=== PATIENT | male | born 1960 | race Caucasian/White ===

== ENCOUNTER 2016-08-12 17:29 | Observation (INO) ==
[2016-08-12] MEDS ORDERED: PANTOPRAZOLE 40 MG VIAL IV STA (18:47)
[2016-08-12] MEDS ORDERED: SODIUM CHLORIDE 0.9% 500 ML IV STA (18:47)
[2016-08-12] MEDS ORDERED: PANTOPRAZOLE 40 MG VIAL IV ONE (18:59)
[2016-08-12 19:07] LABS: Basophils % 0.5 % (0.0-0.8); Eosinophils # 0.2 10*3/uL (0.0-0.87); Eosinophils % 2.8 % (0.00-10.9); Hematocrit 27.8 VOL% (42.0-52.0); Immature Granulocytes % 0.5 %; Immature Granulocytes Absolute 0.03 #; Lymphocytes # 0.9 10*3/uL (1.4-4.0); Lymphocytes % 14.1 % (21.2-54.2); Mean Corpuscular HGB Conc 28.8 GM/DL (32-36); Mean Corpuscular Hemoglobin 24 PG (27-34); Mean Corpuscular Volume 84.5 FL (87-102); Mean Platelet Volume 9.5 FL (9.6-12.0); Monocytes # 0.6 10*3/uL (0.11-0.8); Monocytes % 10.5 % (1.7-12.7); Neutrophils # 4.4 10*3/uL (1.4-7.4); Neutrophils % 71.6 % (38.7-73.9); Platelet Count 271 T/CUMM (130-400); Red Blood Count 3.29 MC/CUMM (3.8-5.5); Red Cell Distribution Width 18.2 % (9.3-17.3); White Blood Count 6.1 T/CUMM (4-12)
[2016-08-12 19:11] LABS: PT Patient Result 10.6 SECS
[2016-08-12 19:22] LABS: Alanine Aminotransferase 38 U/L (16-61); Albumin 2.7 G/DL (3.4-5.0); Alkaline Phosphatase 161 U/L (45-117); Aspartate Amino Transferase 79 U/L (0-37); Blood Urea Nitrogen 5 MG/DL (7-18); Calcium 8.2 MG/DL (8.5-10.1); Glucose 186 MG/DL (74-106); Magnesium 2.2 MG/DL (1.8-2.4); Potassium 4.1 MMOL/L (3.5-5.1); Sodium 136 MMOL/L (136-145); Total Protein 6.6 G/DL (6.4-8.3); Troponin I Only < 0.015 NG/ML (0.00-0.045)
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
[2016-08-12] MEDS ORDERED: ACETAMINOPHEN 325 MG TABLET PO PRN (19:34)
[2016-08-12] MEDS ORDERED: SODIUM CHLORIDE 0.9% 250 ML IV PRN (19:34)
[2016-08-12] MEDS ORDERED: ONDANSETRON 4 MG/2 ML VIAL IV PRN (19:34)
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
[2016-08-12 22:02] LABS: Anisocytosis Slight; Microcytosis Slight; Platelet Estimate Normal
[2016-08-13 06:09] VITALS: BP 117/73
[2016-08-13 06:12] LABS: Hematocrit 29.6 VOL% (42.0-52.0); Hemoglobin 8.8 GM/DL (14.0-18.0)
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
--- NOTE | 2016-08-13 07:16 | EKG Report ---
Stationary ECG Study [facility] ER Test Date: 08/12/2016 7:00:20 PM Pat Name: MALICK SERRANO Department: Room: 424 Gender: M Manager Control: : 1960 Requested by: Bertrand Arrieta Order Number: [id number] Reading MD: RAJINDER HARRELL Intervals [place] Rate: 117 P: 62 FL: 140 QRS: 47 QRSD: 89 T: 30 QT: 320 QTc: 389 Interpretive Statements SINUS TACHYCARDIA Electronically Signed On 08-14-16 16:38:17 CDT by RAJINDER HARRELL [email or web address]
[2016-08-13] MEDS ORDERED: ASCORBIC ACID 500 MG TABLET PO SCH (09:00)
[2016-08-13] MEDS ORDERED: GABAPENTIN 600 MG TABLET PO SCH (09:00)
[2016-08-13] MEDS ORDERED: PANTOPRAZOLE 40 MG TABLET PO SCH (09:00)
[2016-08-13] MEDS ORDERED: FERROUS SULFATE 325 MG TABLET PO SCH (09:00)
[2016-08-13] MEDS ORDERED: PREGABALIN 100 MG CAPSULE PO SCH (09:00)
[2016-08-13] MEDS ORDERED: MELOXICAM 7.5 MG TABLET PO SCH (09:00)
[2016-08-13] MEDS ORDERED: SERTRALINE 100 MG TABLET PO SCH (09:00)
[2016-08-13] MEDS ORDERED: SIMVASTATIN 40 MG TABLET PO SCH (09:00)
[2016-08-13] MEDS ORDERED: traZODone 50 MG TABLET PO SCH (21:00)
== END 2016-08-13 06:37 | disposition home or self-care (01) ==
LOC: N.ED 17:29 → N.EDINP 17:29 → N.4E 20:25 → N.EDINP 20:30
PROVIDERS: ADMIT Internal Medicine; ATTEND Internal Medicine

== ENCOUNTER 2016-10-01 11:48 | Observation (INO) ==
--- NOTE | 2016-10-01 13:12 | Emergency Department Note ---
IJerman Brooke, am scribing for, and in the presence of, Elke Koch DO 13:08 . IAugust Debra, DO, personally performed the services described in this documentation, ascribed by Ashley Stoll in my presence, and it is both accurate and complete 312 . Arrival - Arrival Chief Complaint: Non-Specific Stated Complaint: REQUIRE BLOOD ED Nursing Triage Note: C/O ' I am anemic and I need blood ", states he has to come often to get blood, SOB when walks, + weakness, + pale in color, states he is having to get blood transfusions apx. every 5 weeks Mode of Arrival: Ambulatory Limitations: No Limitations Source: Patient, RN Notes Reviewed Time Seen by Provider: 10/01/16 12:53 - History of Present Illness HPI Narrative: Patient is a 56 year old male who presents to the ED with c/o generalized weakness and shortness of breath. Patient states "I need a blood transfusion.' He says he is having slow blood loss but the [facility]." Patient says he is supposed to "swallow a camera pill " but has not been scheduled. Patient says he can usually tell when he needs blood. His last transfusion was in July. He has no other complaints. Patient has PMHx of anxiety, depression, peripheral neuropathy, RA, obstructive sleep apnea , pulmonary embolism, polyps, GERD, anemia, and MRSA. Allergies/Adverse Reactions: Allergies Allergy/AdvReac Type Severity Reaction Status Date / Time No Known Allergies Allergy Verified 10/01/16 12:00 Home Medications: Home Medications Medication Instructions Recorded Confirmed Type Ascorbic Acid Tab [Vitamin C Tab] 500 mg PO TID 01/01/15 08/12/16 History Ferrous Sulfate 324 mg PO TID 01/01/15 08/12/16 History Gabapentin 600 mg PO TID 01/01/15 08/12/16 History Meloxicam 7.5 mg PO DAILY 01/01/15 08/12/16 History Omeprazole 20 mg PO DAILY 01/01/15 08/12/16 History Pregabalin [Lyrica] 100 mg PO TID 01/01/15 08/12/16 History Sertraline [Zoloft] 100 mg PO DAILY 01/01/15 08/12/16 History Simvastatin 80 mg PO DAILY 01/01/15 08/12/16 History traZODone [Desyrel] 100 mg PO DAILY 01/01/15 08/12/16 History Review of System - Review of System 12 point system: reviewed and no additional remarkable complaints except as stated - Review of System Constitutional: Absent: fever Respiratory: Present: other (shortness of breath). Absent: respiratory distress Skin: Absent: rash Neurological: Present: weakness (generalized) Medical,Surgical,& Family Hx - Medical History Psychological: History of: Anxiety Disorders, Depression Neurology: History of: Peripheral Neuropathy No history of: Seizures HEENT: History of: Eye Problem (GLASSES) Rheumatology: History of;: Rheumatoid Arthritis Respiratory: History of: Obstructive Sleep Apnea (CPAP), Pulmonary Embolism ( 2004) Gastrointestinal: History of: GERD, Polyps (REMOVED) Comment Only: GI Problems (CONSTIPATION) Hematology: History of: Anemia Other: History of: MRSA (2004) - Surgical History Abdominal Surgeries: Surgical HX of: Abdominal Surgery (GASTERECTOMY 2004), Colonoscopy - Family History Family History: Reports;: Family Cancer (MOTHER FATHER PATERNAL GRANDMOTHER) - Social History Smoking Status: Never smoker Frequency of Alcohol Use: Frequently Type of Drug Use: None Exam Vital Signs: Vital Signs Temperature 99.1 F 10/01/16 12:44 Pulse Rate 121 H 10/01/16 14:00 Respiratory Rate 20 10/01/16 14:00 Blood Pressure 122/65 10/01/16 14:00 O2 Sat by Pulse Oximetry 95 10/01/16 14:00 - General General appearance: alert, in no apparent distress, obese - Head Head exam: Present: atraumatic, normocephalic - Eye Eye exam: Present: normal appearance, PERRL, EOMI - ENT ENT exam: Present: other (pale mucous membranes) - Neck Neck exam: Present: normal inspection - Chest Chest inspection: Present: normal inspection, symmetric chest wall rise - Respiratory Respiratory exam: Present: normal lung sounds bilaterally - Cardiovascular Cardiovascular exam: Present: normal rhythm, tachycardia, normal heart sounds - Abdominal Exam Abdominal exam: Present: soft, normal bowel sounds. Absent: distention, tenderness - Extremities Exam Extremities exam: Present: normal inspection - Back Exam Back exam: Present: normal inspection - Neurological Exam Neurological exam: Present: alert, oriented X3 - Psychiatric Psychiatric exam: Present: normal affect, normal mood - Skin Skin exam: Present: warm, dry, intact, normal color Results - Labs CBC & BMP: 10/01/16 13:02 10/01/16 13:02 Lab Results: I have reviewed the patients labs Labs: Laboratory Tests 10/01/16 10/01/16 13:02 13:02 WBC 6.2 RBC 3.21 L Hgb 8.4 L Hct 27.7 L MCV 86.3 L MCH 26 L MCHC 30.3 L RDW 17.5 H Plt Count 187 MPV 9.8 Neut % (Auto) 79.1 H Lymph % (Auto) 6.8 L [place] % (Auto) 12.0 Eos % (Auto) 1.3 Baso % (Auto) 0.5 Neut # (Auto) 4.9 Lymph # (Auto) 0.4 L [place] # (Auto) 0.7 Eos # (Auto) 0.1 Baso # (Auto) 0.0 Total Counted 100 Immature Gran % 0.3 Nucleated RBC % 0.0 Immature Gran # 0.02 Segmented Neutrophils 72 Band Neutrophils 5 Lymphocytes 10 L Monocytes 12 Eosinophils 1 Nucleated RBCs # 0.00 Platelet Estimate Adequate Hypochromasia 1+ Ovalocytes Slight Morphology Comment Sodium 135 L Potassium 4.4 Chloride 101 Carbon Dioxide 25 Anion Gap 13.4 BUN 7 Creatinine 0.70 GFR Calculation 133 BUN/Creatinine Ratio 10.00 Glucose 309 H Calculated Osmolality 279.1 Calcium 7.8 L Total Bilirubin 0.40 AST 78 H ALT 42 Alkaline Phosphatase 157 H Total Protein 6.2 L Albumin 2.4 L Globulin 3.8 H Albumin/Globulin Ratio 0.6 L Disposition Clinical Impression: Anemia Case discussed with: patient Disposition: Still a Patient Condition: Stable Time of Disposition: 15:17
[2016-10-01 13:16] LABS: Basophils % 0.5 % (0.0-0.8); Eosinophils # 0.1 10*3/uL (0.0-0.87); Eosinophils % 1.3 % (0.00-10.9); Hematocrit 27.7 VOL% (42.0-52.0); Hemoglobin 8.4 GM/DL (14.0-18.0); Immature Granulocytes % 0.3 %; Immature Granulocytes Absolute 0.02 #; Lymphocytes # 0.4 10*3/uL (1.4-4.0); Lymphocytes % 6.8 % (21.2-54.2); Mean Corpuscular HGB Conc 30.3 GM/DL (32-36); Mean Corpuscular Hemoglobin 26 PG (27-34); Mean Corpuscular Volume 86.3 FL (87-102); Mean Platelet Volume 9.8 FL (9.6-12.0); Monocytes # 0.7 10*3/uL (0.11-0.8); Neutrophils # 4.9 10*3/uL (1.4-7.4); Neutrophils % 79.1 % (38.7-73.9); Platelet Count 187 T/CUMM (130-400); Red Blood Count 3.21 MC/CUMM (3.8-5.5); Red Cell Distribution Width 17.5 % (9.3-17.3); White Blood Count 6.2 T/CUMM (4-12)
[2016-10-01 13:29] LABS: Albumin 2.4 G/DL (3.4-5.0); Bilirubin,Total 0.4 MG/DL (0.2-1.0); Calcium 7.8 MG/DL (8.5-10.1); Osmolality,Calculated 279.1 MOS/KG (273-304); Potassium 4.4 MMOL/L (3.5-5.1); Total Protein 6.2 G/DL (6.4-8.3)
[2016-10-01 13:39] LABS: Band Neutrophils 5 % (0-10); Eosinophils 1 % (0-10); Hypochromasia 1+; Lymphocytes 10 % (20-55); Segmented Neutrophils 72 % (50-85); Total Cells Counted 100
[2016-10-01 13:40] LABS: Ovalocytes Slight; Platelet Estimate Adequate
--- NOTE | 2016-10-01 15:59 | Hospitalist History & Physical ---
Assessment and Plan (1) Anemia Status: Acute Assessment and plan: Hemoglobin and hematocrit noted 8.4 and 27.7. Hemoglobin and hematocrit is stable however patient is is symptomatic. We will type and screen in place blood products in the bearden. Patient may require eventual blood transfusion. Will check serial H&H's The patient reports that his anemia is chronic in nature. He reports that he generally receives transfusions every 5 weeks. He is followed closely by [facility]enterology at the [facility] in [place]. He reports that he is scheduled for a pill endoscopy in the near future. We will provide supportive care. Current Visit: Yes Qualifiers: Anemia type: unspecified type Qualified Code(s): D64.9 - Anemia, unspecified (2) GI bleed Status: Acute Assessment and plan: We will keep patient n.p.o., start PPIs, type and screen, place blood products on hold, and consult gastroenterology to evaluate and assist. The patient reports that he has chronic anemia secondary to a unidentified bleed in the GI tract. He was scheduled to undergo pill endoscopy for diagnostic purposes. He reported that he normally gets transfused every 5 weeks. Current Visit: No History of Present Illness Chief complaint: "need blood" History of present illness: This is a very pleasant 56-year-old male that presented to the ED at [facility] this afternoon for further evaluation of generalized weakness of shortness of breath. Patient has a rather long and complex medical history significant for depression, anxiety, peripheral neuropathy, rheumatoid arthritis, obstructive sleep apnea, pulmonary embolism, gastroesophageal reflux disease, anemia, and methicillin-resistant Staphylococcus aureus. She has surgical history significant for gastrectomy. The patient reports that the above symptoms are chronic in nature and are associated with his long-standing history of anemia. The patient reports that he is seen quite often and requires frequent blood transfusions. He reported that he was injured during exercises in [place] in 2004. He sustained an shrapnel injury to his abdomen which required multiple surgical procedures and eventual mesh placement. He reports that he is normally seen at the [facility] in [facility]. He reports that he is scheduled to undergo capsule endoscopy soon at the [facility] in [place] to possibly identify a source of his anemia. He reports that he generally gets short of breath and very tired when his blood levels are low. He noticed the gradual onset of the symptoms and decided to present to the ED for further evaluation. In addition, he states that in recent months he has required blood transfusions about every 5 weeks. The patient was assessed at the time of ED presentation. The patient was noted to be tachycardic with a pulse rate noted at 121 and febrile with a temperature noted 99.1. Labs were obtained; complete blood count reported white blood cell count at 6.2, hemoglobin 8.4, hematocrit 27.7, and platelet count 187. Complete metabolic profile reported sodium at 135, potassium 4.4, chloride 101, CO2 25, BUN 7, creatinine 0.70, and glucose 309. Calcium was noted at 7.8, total bilirubin 0.40, AST 78, a LT 42, alkaline phosphatase 157, albumin 2.4. Digital examination was performed in the ED which was heme positive. After brief discussion with both Dr. Koch and Dr. Pierce, the patient will be admitted to the hospitalist services for continuation of care. A GI consultation has been requested to assist in the management of the patient during the clinical encounter. Home medications have been reviewed and reconciled. CODE STATUS discussed patient is a FULL CODE. Home Medications Medication Instructions Recorded Confirmed Type Ascorbic Acid Tab [Vitamin C Tab] 500 mg PO TID 01/01/15 08/12/16 History Ferrous Sulfate 324 mg PO TID 01/01/15 08/12/16 History Gabapentin 600 mg PO TID 01/01/15 08/12/16 History Meloxicam 7.5 mg PO DAILY 01/01/15 08/12/16 History Omeprazole 20 mg PO DAILY 01/01/15 08/12/16 History Pregabalin [Lyrica] 100 mg PO TID 01/01/15 08/12/16 History Sertraline [Zoloft] 100 mg PO DAILY 01/01/15 08/12/16 History Simvastatin 80 mg PO DAILY 01/01/15 08/12/16 History traZODone [Desyrel] 100 mg PO DAILY 01/01/15 08/12/16 History Allergies Allergy/AdvReac Type Severity Reaction Status Date / Time No Known Allergies Allergy Verified 10/01/16 12:00 Medical,Surgical,& Family Hx - Medical History Psychological: History of: Anxiety Disorders, Depression Neurology: History of: Peripheral Neuropathy No history of: Seizures HEENT: History of: Eye Problem (GLASSES) Rheumatology: History of;: Rheumatoid Arthritis Respiratory: History of: Obstructive Sleep Apnea (CPAP), Pulmonary Embolism ( 2004) Gastrointestinal: History of: GERD, Polyps (REMOVED) Comment Only: GI Problems (CONSTIPATION) Hematology: History of: Anemia Other: History of: MRSA (2004) - Surgical History Abdominal Surgeries: Surgical HX of: Abdominal Surgery (GASTERECTOMY 2004), Colonoscopy - Family History Family History: Reports;: Family Cancer (MOTHER FATHER PATERNAL GRANDMOTHER) - Social History Smoking Status: Never smoker Frequency of Alcohol Use: Frequently Type of Drug Use: None 12 point system: reviewed and no additional remarkable complaints except as stated Exam - Constitutional Vitals: Period Temp Pulse Resp BP Sys/Niño Pulse Ox Last 24 Hr 99.1 F-99.1 F 118-136 20-20 118-134/65-77 94-98 General appearance: normal weight, no acute distress - Head Head exam: Present: normal inspection, normocephalic - Eye Eye exam: Present: EOMI Pupils: Present: BEATRIS, normal accommodation - ENT ENT exam: Present: normal exam, normal external ear exam, normal oropharynx - Neck Neck exam: Present: normal inspection. Absent: lymphadenopathy, meningismus, tenderness, thyromegaly - Respiratory Respiratory exam: Present: clear to auscultation bilaterally. Absent: rales, rhonchi, stridor, wheezes - Cardiovascular Cardiovascular exam: Present: tachycardia. Absent: carotid bruit, diastolic murmur, gallop, JVD, rubs, systolic murmur - GI/Abdominal GI/Abdominal exam: Present: normal bowel sounds, soft - Extremities Exam Extremities exam: Present: normal inspection, normal capillary refill, full ROM. Absent: edema - Back Exam Back exam: Present: normal inspection - Neurological Exam Neurological exam: Present: alert, oriented X3, CN II-XII intact - Psychiatric Psychiatric exam: Present: normal affect, normal mood - Skin Skin exam: Present: normal color, warm, dry Results - Labs CBC & BMP: 10/01/16 13:02 10/01/16 13:02 Lab Results: I have reviewed the past 24 hour labs
[2016-10-01] MEDS: SODIUM CHLORIDE 0.9% 1,000 ML IV SCH (17:17)
[2016-10-01] MEDS ORDERED: SODIUM CHLORIDE 0.9% 250 ML IV PRN (18:08)
[2016-10-01] MEDS: PREGABALIN 100 MG CAPSULE PO SCH (20:42)
[2016-10-01] MEDS: GABAPENTIN 600 MG TABLET PO SCH (20:42)
[2016-10-02 05:50] LABS: Basophils % 0.8 % (0.0-0.8); Eosinophils # 0.2 10*3/uL (0.0-0.87); Eosinophils % 4.7 % (0.00-10.9); Hematocrit 29.4 VOL% (42.0-52.0); Hemoglobin 9.1 GM/DL (14.0-18.0); Immature Granulocytes % 0.4 %; Immature Granulocytes Absolute 0.02 #; Lymphocytes # 0.8 10*3/uL (1.4-4.0); Lymphocytes % 16.7 % (21.2-54.2); Mean Corpuscular Hemoglobin 27 PG (27-34); Mean Platelet Volume 9.7 FL (9.6-12.0); Monocytes # 0.8 10*3/uL (0.11-0.8); Monocytes % 15.5 % (1.7-12.7); Neutrophils % 61.9 % (38.7-73.9); Platelet Count 204 T/CUMM (130-400); Red Blood Count 3.38 MC/CUMM (3.8-5.5); Red Cell Distribution Width 17.3 % (9.3-17.3); White Blood Count 4.9 T/CUMM (4-12)
[2016-10-02] MEDS: SODIUM CHLORIDE 0.9% 1,000 ML IV SCH ×3 (05:53→17:01)
[2016-10-02 06:00] LABS: INR 1.1; PT Patient Result 11.2 SECS
[2016-10-02 06:29] LABS: Band Neutrophils 3 % (0-10); Eosinophils 8 % (0-10); Hypochromasia 1+; Lymphocytes 12 % (20-55); Segmented Neutrophils 67 % (50-85); Total Cells Counted 100
[2016-10-02 06:30] LABS: Microcytosis 1+; Ovalocytes Slight; Platelet Estimate Normal
[2016-10-02] MEDS ORDERED: SERTRALINE 100 MG TABLET PO SCH (09:00)
[2016-10-02] MEDS ORDERED: PANTOPRAZOLE 40 MG VIAL IV SCH (09:00)
[2016-10-02] MEDS: GABAPENTIN 600 MG TABLET PO SCH ×2 (09:27→15:06)
[2016-10-02] MEDS: PREGABALIN 100 MG CAPSULE PO SCH ×2 (09:27→15:06)
--- NOTE | 2016-10-02 14:04 | Gastrointestinal Consult Note ---
Assessment and Plan (1) Guaiac positive stools Status: Acute Assessment and plan: This patient is taking iron which is making his stools dark. Not sure what the etiology of the guaiac positive stools is however this can be associated with enterocutaneous fistulas or perhaps there may be Crohn's disease and small bowel although one would think that the capsule endoscopy may have seen this. The stool itself is quite dark and I presume this is likely due to the iron intake. Patient's had one concerted effort to look with upper and lower endoscopy as well as capsule endoscopy at the [facility]. My suggestion would be to fix the enterocutaneous fistulas and see if the anemia goes away at this point, however it certainly would not hurt to transfuse the patient up to a normal level and then performed capsule endoscopy to look if a AVM or Dieulafoy's lesion could be identified with the additional blood. The patient does not desire local GI workup/repeat of tests done here. I have given him my card and will certainly be able to provide him local GI workup/repeated tests if he desires in the future. Current Visit: Yes (2) Enterocutaneous fistula Status: Acute Assessment and plan: The patient is due to get an evaluation over [facility] in the near future if he meets criteria. There is a chance that this fistula being persistently open may be the source of the patient's bleeding and closure would help decrease further transfusion needs. Again would suggest the patient have his fistula closure and then follow-up CBC in 1 month to see whether or not he continues to require repeat testing for workup. Current Visit: Yes (3) Anemia Status: Acute Assessment and plan: As mentioned above, the patient's current hematocrit is 27.7%. I suspect he will be up to a 30% before leaving here early. Current Visit: Yes History of Present Illness Chief complaint: Recurrent anemia with hematocrit down to 27.7 % for transfusion History of present illness: Mr. Dumont is a 56 year old male who has a history of being involved in a shrapnel related incident involving an IUD that [place] and this produced shrapnel injuries to his small bowel as well as perirectal injuries that have required multiple surgeries and has still resulted two persistent enterocutaneous fistulas. These have been present many months but the patient was feeling quite fatigued and tired in November 2015 and was discovered to have severe anemia requiring 4 unit transfusion. At [facility] point [facility] [place] [facility] both EGD and colonoscopy around December 2015. He has had negative CT scan of the abdomen is well, these were completely negative by report from the patient it was felt that the patient may have small bowel bleeding and so a PillCam was performed which again did not show any gross evidence of blood loss. It was thought that the patient may have a Dieulafoy's lesion or AVM that was not appearing on the PillCam and might be amenable to reevaluation after full transfusion--presumably to occur in [place] just prior to the next pill cam evaluation the patient did not want to drive all the way to [place] order to be transfused and so has been admitted to the hospital to get transfused locally so that he would not have to schlep from [place] all the way to [place] to get his 2 units of blood. His hematocrit on presentation was 27.7 with a hemoglobin of 8.4 g/dL now post transfusion of 2 units up to 29.4 and 9.1 g/dL. he does not wish to get reevaluated locally. He does still take iron and is notable for a grossly guaiac positive stool. The patient is currently having his case reviewed by a friend at [facility] in the surgery department who will think about bringing him over to get evaluated for fistula closure. It is unclear whether this will fix the anemia however or if it is even related. Home Medications Medication Instructions Recorded Confirmed Type Ferrous Sulfate 324 mg PO TID 01/01/15 10/01/16 History Omeprazole 20 mg PO QPM 01/01/15 10/01/16 History Pregabalin [Lyrica] 100 mg PO TID PRN 01/01/15 10/01/16 History Sertraline [Zoloft] 100 mg PO QPM 01/01/15 10/01/16 History Simvastatin 40 mg PO QPM 01/01/15 10/01/16 History Acetaminophen Tab [Tylenol Tab] 975 mg PO BID PRN 10/01/16 10/01/16 History Cetirizine HCl [Cetirizine Tab] 10 mg PO DAILY PRN 10/01/16 10/01/16 History Docusate Sodium Cap [Colace Cap] 100 mg PO DAILY PRN 10/01/16 10/01/16 History Doxepin HCl 25 mg PO BEDTIME 10/01/16 10/01/16 History Lidocaine 5% Patch [Lidoderm 5% 1 patch TRANSDERM DAILY 10/01/16 10/01/16 History Patch] Metformin HCl 500 mg PO BID 10/01/16 10/01/16 History Methocarbamol Tab [Robaxin Tab] 500 mg PO BEDTIME PRN 10/01/16 10/01/16 History Allergies Allergy/AdvReac Type Severity Reaction Status Date / Time No Known Allergies Allergy Verified 10/01/16 12:00 Medical,Surgical,& Family Hx - Medical History Psychological: History of: Anxiety Disorders, Depression Neurology: History of: Peripheral Neuropathy No history of: Seizures HEENT: History of: Eye Problem (GLASSES) Endocrine: History of: Diabetes Mellitus (NIDDM) Rheumatology: History of;: Rheumatoid Arthritis Respiratory: History of: Obstructive Sleep Apnea (CPAP), Pulmonary Embolism ( 2004) Gastrointestinal: History of: GERD, Polyps (REMOVED) Comment Only: GI Problems (CONSTIPATION) Musculoskeletal: History of: Back/Neck Problems (fractured vertabrae in neck and injury at L5 in 2004), Musculoskeletal Problems (right leg larger than left and hurts.) Hematology: History of: Anemia, Bleeding Problems Other: History of: MRSA (2004) - Surgical History Abdominal Surgeries: Surgical HX of: Abdominal Surgery (GASTERECTOMY 2004), Colonoscopy (temporary ostomy following injury in 2004.) - Family History Family History: Reports;: Family Cancer (MOTHER FATHER PATERNAL GRANDMOTHER) - Social History Smoking Status: Never smoker Frequency of Alcohol Use: Frequently Type of Drug Use: None Review of systems: Constitutional: Denies fever, chills, nausea, and vomiting Eyes: Denies dry eyes, and scleral icterus HENT: Denies headaches Cardiovascular: Denies acute chest pain and claudication Respiratory: Denies shortness of breath, wheezing, and difficulty breathing, denies cough Gastrointestinal: As noted in the HPI Genitourinary: Denies dysuria and hematuria Neurologic: Denies vision loss, and loss of sensation Musculoskeletal: Positive for joint swelling, joint stiffness, and muscular weakness Psychiatric: Denies depression and roberto symptoms Heme-Lymph: Some difficulty with easy bruising, lymph node enlargement or tenderness, night sweats, excessive bleeding Allergies-immunologic: Denies pruritus and rhinorrhea Exam - Constitutional Vitals: Period Temp Pulse Resp BP Sys/Niño Pulse Ox Last 24 Hr 97.3 F-99.6 F 106-120 15-22 115-149/51-77 93-98 Exam: Constitutional: Well-developed, well-nourished, alert, and in no acute distress Head and face: Head: Normocephalic atraumatic Eyes: Conjunctiva without injection, no gross scleral icterus, pupils equal and round bilaterally Ears: Intact to conversation in both ears Nose: External appearance is normal, nares patent Mouth: Oral mucous membranes moist without erythema dentition noted to be without erosion Neck: Normal appearance, no masses or tenderness, trachea midline Thyroid: Gland midline and appropriate size for age Respiratory: Normal respiratory effort, clear to auscultation without wheezes, rhonchi or rales Cardiovascular: Regular rate and rhythm, normal S1, S2, the exam is without rubs, murmurs or gallops. Gastrointestinal: Nontender to palpation, normal active bowel sounds, tone normal without rigidity or guarding, no masses present, no hepatomegaly, no spleen tip felt. The patient is a large number of scars in his abdomen as well as a perirectal scar that appears quite deep. There is a sensation of mesh underneath the skin in the bilateral upper quadrants just above the umbilicus there are 2 fistulas one just left of midline in the upper abdomen and the second in the right upper quadrant which appears to be the larger of the 2 with some mucoid drainage. There is no blood. Lymphatic: Neck without adenopathy, axilla without lymphadenopathy present Musculoskeletal: Right and left lower extremities without evidence of edema Skin and subcutaneous tissue: No rashes or ulcerations noted, normal skin turgor, digits and nails without clubbing/cyanosis/deformities. Neurologic: The patient is grossly oriented to person place and time, cranial nerves show tongue movements are normal with normal tongue extrusion midline, light touch sensation is intact. Psychiatric: No hallucinations or delusions are present, does not appear depressed Results - Labs CBC & BMP: 10/02/16 05:29 10/01/16 13:02
[2016-10-02 15:27] LABS: Hematocrit 30.8 VOL% (42.0-52.0); Hemoglobin 9.4 GM/DL (14.0-18.0)
--- NOTE | 2016-10-02 15:43 | Discharge Summary ---
Hospital Course - Hospital Course Hospital Course: This is a very pleasant 56-year-old male that presented to the ED at [facility] on October 01 2016 for further evaluation of generalized weakness of shortness of breath. Patient has a rather long and complex medical history significant for depression, anxiety, peripheral neuropathy, rheumatoid arthritis, obstructive sleep apnea, pulmonary embolism, gastroesophageal reflux disease, anemia, and methicillin-resistant Staphylococcus aureus. He has surgical history significant for gastrectomy. The patient reported that the above symptoms are chronic in nature and are associated with his long-standing history of anemia. The patient reported that he is seen quite often and requires frequent blood transfusions. He reported that he was injured during exercises in [place] in 2004. He sustained an shrapnel injury to his abdomen which required multiple surgical procedures and eventual mesh placement. He reported that he is normally seen at the [facility] in [place], [place]. He reported that he is scheduled to undergo capsule endoscopy soon at the [facility] in [place] to possibly identify a source of his anemia. He reported that he generally gets short of breath and very tired when his blood levels are low. He noticed the gradual onset of the symptoms and decided to present to the ED for further evaluation. In addition, he stated that in recent months he has required blood transfusions about every 5 weeks.The patient was assessed at the time of ED presentation. The patient was noted to be tachycardic with a pulse rate noted at 121 and febrile with a temperature noted 99.1. Labs were obtained; complete blood count reported white blood cell count at 6.2, hemoglobin 8.4, hematocrit 27.7, and platelet count 187. Complete metabolic profile reported sodium at 135, potassium 4.4, chloride 101, CO2 25, BUN 7, creatinine 0.70, and glucose 309. Calcium was noted at 7.8, total bilirubin 0.40, AST 78, a LT 42, alkaline phosphatase 157, albumin 2.4. Digital examination was performed in the ED which was heme positive. The patient was subsequently admitted to the hospitalist services for continuation of care. The patient was rehydrated. The patient was evaluated by gastroenterology; however the patient refused a full gastroenterology workup. The patient was transfused blood products and his blood counts improved. Today, his hemoglobin and hematocrit are noted at 9.4/30.8. 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 Diagnosis - Discharge Diagnosis (1) Anemia Status: Acute (2) GI bleed Status: Acute Discharge Plan - Discharge Medications No Action Pregabalin [Lyrica] 100 mg PO TID PRN PRN Reason: Pain Omeprazole 20 mg PO QPM Ferrous Sulfate 324 mg PO TID Sertraline [Zoloft] 100 mg PO QPM Simvastatin 40 mg PO QPM Cetirizine HCl [Cetirizine Tab] 10 mg PO DAILY PRN PRN Reason: Allergy Symptoms Docusate Sodium Cap [Colace Cap] 100 mg PO DAILY PRN PRN Reason: STOOL SOFTENER Doxepin HCl 25 mg PO BEDTIME Metformin HCl 500 mg PO BID Methocarbamol Tab [Robaxin Tab] 500 mg PO BEDTIME PRN PRN Reason: MUSCLE SPASMS Lidocaine 5% Patch [Lidoderm 5% Patch] 1 patch TRANSDERM DAILY Acetaminophen Tab [Tylenol Tab] 975 mg PO BID PRN PRN Reason: Pain - Follow Up or Referral - Forms/Instructions Exam - Constitutional Vitals: Period Temp Pulse Resp BP Sys/Niño Pulse Ox Last 24 Hr 97.3 F-99.6 F 106-120 15-22 115-149/51-77 93-97 Discharge Results Procedures and tests throughout hospitalization: Pending Orders 10/03/16 04:00 Prothrombin Time INR IN AM 10/04/16 04:00 Prothrombin Time INR IN AM Labs on day of discharge: Labs from last 24 hours 10/02/16 10/02/16 10/02/16 14:42 05:29 05:29 WBC 4.9 RBC 3.38 L Hgb 9.4 L 9.1 L Hct 30.8 L 29.4 L MCV 87.0 MCH 27 MCHC 31.0 L RDW 17.3 Plt Count 204 MPV 9.7 Neut % (Auto) 61.9 Lymph % (Auto) 16.7 L [place] % (Auto) 15.5 H Eos % (Auto) 4.7 Baso % (Auto) 0.8 Neut # (Auto) 3.0 Lymph # (Auto) 0.8 L [place] # (Auto) 0.8 Eos # (Auto) 0.2 Baso # (Auto) 0.0 Total Counted 100 Immature Gran % 0.4 Nucleated RBC % 0.0 Immature Gran # 0.02 Segmented Neutrophils 67 Band Neutrophils 3 Lymphocytes 12 L Monocytes 10 Eosinophils 8 Nucleated RBCs # 0.00 Platelet Estimate Normal Hypochromasia 1+ Microcytosis 1+ Ovalocytes Slight INR PT Patient/Control Mix Circ Anticoag PTT 29.9 Blood Type Antibody Screen Antibody Identification Crossmatch 10/02/16 10/01/16 05:29 13:04 WBC RBC Hgb Hct MCV MCH MCHC RDW Plt Count MPV Neut % (Auto) Lymph % (Auto) [place] % (Auto) Eos % (Auto) Baso % (Auto) Neut # (Auto) Lymph # (Auto) [place] # (Auto) Eos # (Auto) Baso # (Auto) Total Counted Immature Gran % Nucleated RBC % Immature Gran # Segmented Neutrophils Band Neutrophils Lymphocytes Monocytes Eosinophils Nucleated RBCs # Platelet Estimate Hypochromasia Microcytosis Ovalocytes INR 1.1 PT Patient/Control Mix 11.2 Circ Anticoag PTT Blood Type O NEGATIVE Antibody Screen Positive Antibody Identification Anti-C Crossmatch See Detail DS: Provider Date of admission: 10/01/16 15:38 Primary care physician: Alberto Olivas MD Attending physician on admission: Jesús Pierce MD Discharging clinician: Aliya Camara CNP
--- NOTE | 2016-10-02 16:00 | Discharge Summary ---
<Lakshmi Camarada - Last Filed: 10/02/16 16:00> Hospital Course - Hospital Course Hospital Course: This is a very pleasant 56-year-old male that presented to the ED at [facility] on October 01 2016 for further evaluation of generalized weakness of shortness of breath. Patient has a rather long and complex medical history significant for depression, anxiety, peripheral neuropathy, rheumatoid arthritis, obstructive sleep apnea, pulmonary embolism, gastroesophageal reflux disease, anemia, and methicillin-resistant Staphylococcus aureus. He has surgical history significant for gastrectomy. The patient reported that the above symptoms are chronic in nature and are associated with his long-standing history of anemia. The patient reported that he is seen quite often and requires frequent blood transfusions. He reported that he was injured during exercises in [place] in 2004. He sustained an shrapnel injury to his abdomen which required multiple surgical procedures and eventual mesh placement. He reported that he is normally seen at the [facility] in [place], [place]. He reported that he is scheduled to undergo capsule endoscopy soon at the [facility] in [place] to possibly identify a source of his anemia. He reported that he generally gets short of breath and very tired when his blood levels are low. He noticed the gradual onset of the symptoms and decided to present to the ED for further evaluation. In addition, he stated that in recent months he has required blood transfusions about every 5 weeks.The patient was assessed at the time of ED presentation. The patient was noted to be tachycardic with a pulse rate noted at 121 and febrile with a temperature noted 99.1. Labs were obtained; complete blood count reported white blood cell count at 6.2, hemoglobin 8.4, hematocrit 27.7, and platelet count 187. Complete metabolic profile reported sodium at 135, potassium 4.4, chloride 101, CO2 25, BUN 7, creatinine 0.70, and glucose 309. Calcium was noted at 7.8, total bilirubin 0.40, AST 78, a LT 42, alkaline phosphatase 157, albumin 2.4. Digital examination was performed in the ED which was heme positive. The patient was subsequently admitted to the hospitalist services for continuation of care. The patient was rehydrated. The patient was evaluated by gastroenterology; however the patient refused a full gastroenterology workup. The patient was transfused blood products and his blood counts improved. Today, his hemoglobin and hematocrit are noted at 9.4/30.8. 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 Patient was admitted with symptomatic anemia hemoglobin was 8.4. He was transfused with improve h/h but it was not appropriate for transfusion. He is hemodynamically stable and no overt bleeding. His hemoglobin was 9.1 this morning I repeated it and it was 9.4 patient would like to go home he has refused any workup here at the [facility] . He would like to follow-up with the GI at [facility]. See above for other details. He is asked to return to hospital prn for symptoms / bleeding Diagnosis - Discharge Diagnosis (1) Anemia Status: Acute (2) GI bleed Status: Acute Discharge Plan - Discharge Data Disposition: Disch To Home/Self Care - Discharge Medications New [place]apentin Cap/Tab [Neurontin Cap/Tab] 600 mg PO TID tablet traZODone [Desyrel] 100 mg PO DAILY tablet Continue Pregabalin [Lyrica] 100 mg PO TID PRN PRN Reason: Pain Ferrous Sulfate 324 mg PO TID Sertraline [Zoloft] 100 mg PO QPM Simvastatin 40 mg PO QPM Cetirizine HCl [Cetirizine Tab] 10 mg PO DAILY PRN PRN Reason: Allergy Symptoms Docusate Sodium Cap [Colace Cap] 100 mg PO DAILY PRN PRN Reason: STOOL SOFTENER Doxepin HCl 25 mg PO BEDTIME Metformin HCl 500 mg PO BID Methocarbamol Tab [Robaxin Tab] 500 mg PO BEDTIME PRN PRN Reason: MUSCLE SPASMS Lidocaine 5% Patch [Lidoderm 5% Patch] 1 patch TRANSDERM DAILY Discontinued Acetaminophen Tab [Tylenol Tab] 975 mg PO BID PRN PRN Reason: Pain No Action Omeprazole 20 mg PO QPM - Follow Up or Referral - Forms/Instructions Exam - Constitutional Vitals: Period Temp Pulse Resp BP Sys/Niño Pulse Ox Last 24 Hr 97.3 F-99.6 F 106-120 15-22 115-149/51-77 93-97 Discharge Results Procedures and tests throughout hospitalization: Pending Orders 10/03/16 04:00 Prothrombin Time INR IN AM 10/04/16 04:00 Prothrombin Time INR IN AM Labs on day of discharge: Labs from last 24 hours 10/02/16 10/02/16 10/02/16 14:42 05:29 05:29 WBC 4.9 RBC 3.38 L Hgb 9.4 L 9.1 L Hct 30.8 L 29.4 L MCV 87.0 MCH 27 MCHC 31.0 L RDW 17.3 Plt Count 204 MPV 9.7 Neut % (Auto) 61.9 Lymph % (Auto) 16.7 L Cass % (Auto) 15.5 H Eos % (Auto) 4.7 Baso % (Auto) 0.8 Neut # (Auto) 3.0 Lymph # (Auto) 0.8 L Cass # (Auto) 0.8 Eos # (Auto) 0.2 Baso # (Auto) 0.0 Total Counted 100 Immature Gran % 0.4 Nucleated RBC % 0.0 Immature Gran # 0.02 Segmented Neutrophils 67 Band Neutrophils 3 Lymphocytes 12 L Monocytes 10 Eosinophils 8 Nucleated RBCs # 0.00 Platelet Estimate Normal Hypochromasia 1+ Microcytosis 1+ Ovalocytes Slight INR PT Patient/Control Mix Circ Anticoag PTT 29.9 Blood Type Antibody Screen Antibody Identification Crossmatch 10/02/16 10/01/16 05:29 13:04 WBC RBC Hgb Hct MCV MCH MCHC RDW Plt Count MPV Neut % (Auto) Lymph % (Auto) Cass % (Auto) Eos % (Auto) Baso % (Auto) Neut # (Auto) Lymph # (Auto) Cass # (Auto) Eos # (Auto) Baso # (Auto) Total Counted Immature Gran % Nucleated RBC % Immature Gran # Segmented Neutrophils Band Neutrophils Lymphocytes Monocytes Eosinophils Nucleated RBCs # Platelet Estimate Hypochromasia Microcytosis Ovalocytes INR 1.1 PT Patient/Control Mix 11.2 Circ Anticoag PTT Blood Type O NEGATIVE Antibody Screen Positive Antibody Identification Anti-C Crossmatch See Detail DS: Provider Date of admission: 10/01/16 15:38 Primary care physician: Alberto Olivas MD Attending physician on admission: Jesús Pierce MD Discharging clinician: Aliya Camara CNP <Kavon Arteaga - Last Filed: 10/02/16 16:08> Diagnosis - Discharge Diagnosis (1) Anemia Status: Acute (2) GI bleed Status: Acute Discharge Plan - Discharge Data Condition at Discharge: Stable Discharge Diet: advance to your usual diet Activity: resume usual activities as tolerated Exam - Constitutional General appearance: no acute distress - Respiratory Respiratory exam: Present: clear to auscultation bilaterally. Absent: rales, rhonchi - Cardiovascular Cardiovascular exam: Present: regular rate and rhythm. Absent: tachycardia - GI/Abdominal GI/Abdominal exam: Present: normal bowel sounds, soft, other (Chronic draining sinuses upper abdomen noted). Absent: distended, tenderness - Extremities Exam Extremities exam: Present: normal inspection, edema - Neurological Exam Neurological exam: Present: alert, oriented X3
[2016-10-02 16:32] VITALS: BP 141/82
== END 2016-10-02 17:10 | disposition home or self-care (01) ==
LOC: N.ED 11:48 → SUATTDRO 15:38 → INTOOBSV 15:38 → N.EDINP 15:38 → N.4E 16:54
PROVIDERS: ADMIT Hospitalist; ATTEND Internal Medicine

== ENCOUNTER 2017-09-06 15:36 | Inpatient (IN) ==
[2017-09-06] MEDS ORDERED: SODIUM CHLORIDE 0.9% 1,000 ML IV STA (16:01)
[2017-09-06 16:49] LABS: Basophils % 0.5 % (0.0-0.8); Eosinophils # 0.2 10*3/uL (0.0-0.87); Eosinophils % 2.8 % (0.00-10.9); Hemoglobin 7.4 GM/DL (14.0-18.0); Immature Granulocytes % 0.7 %; Immature Granulocytes Absolute 0.04 #; Lymphocytes # 0.7 10*3/uL (1.4-4.0); Lymphocytes % 11.9 % (21.2-54.2); Mean Corpuscular HGB Conc 29.6 GM/DL (32-36); Mean Corpuscular Hemoglobin 27 PG (27-34); Mean Corpuscular Volume 92.3 FL (87-102); Monocytes # 0.8 10*3/uL (0.11-0.8); Monocytes % 12.7 % (1.7-12.7); Neutrophils # 4.3 10*3/uL (1.4-7.4); Neutrophils % 71.4 % (38.7-73.9); Platelet Count 163 T/CUMM (130-400); Red Blood Count 2.71 MC/CUMM (3.8-5.5); Red Cell Distribution Width 18.1 % (9.3-17.3)
[2017-09-06 17:02] LABS: INR 1.1; PT Patient Result 11.3 SECS; Partial Thromboplastin Time 29.5 SECS (0-40)
[2017-09-06 17:17] LABS: Ammonia 164 UMOL/L (11-32)
[2017-09-06 17:20] LABS: Alanine Aminotransferase 32 U/L (16-61); Albumin 2.5 G/DL (3.4-5.0); Alkaline Phosphatase 139 U/L (45-117); Aspartate Amino Transferase 66 U/L (0-37); Blood Urea Nitrogen 10 MG/DL (7-18); Calcium 8.2 MG/DL (8.5-10.1); Glucose 139 MG/DL (74-106); Osmolality,Calculated 275.7 MOS/KG (273-304); Potassium 3.8 MMOL/L (3.5-5.1); Sodium 138 MMOL/L (136-145); Total Protein 7.1 G/DL (6.4-8.3); Troponin I Only < 0.015 NG/ML (0.00-0.045)
[2017-09-06] MEDS ORDERED: ONDANSETRON 4 MG/2 ML VIAL IV PRN (18:13)
[2017-09-06] MEDS ORDERED: DEXTROSE 50% 25 GM/50 ML VIAL IV PRN (18:13)
[2017-09-06] MEDS ORDERED: GLUCAGON 1 MG VIAL IM PRN (18:13)
[2017-09-06] MEDS ORDERED: ERGOCALCIFEROL 50,000 UNIT CAPSULE PO SCH (18:30)
[2017-09-06] MEDS: LACTULOSE 20 GM/30 ML UDCUP PO SCH ×4 (18:48→22:32)
[2017-09-06 18:55] LABS: Apearance,Urine CLEAR (Clear); Bilirubin,Urine Negative (Negative); Blood, Urine Negative (Negative); Glucose,Urine (UA) Negative (Negative); Ketones,Urine Negative (Negative); Mucus,Urine Occasional /LPF (Occasional); Nitrite,Urine Negative (Negative); Protein,Urine Negative; RBC,Urine <1 /HPF (0-4); Urine Color Yellow (Yellow); WBC,Urine <1 /HPF (0-6)
[2017-09-06 19:47] LABS: Folate 17.4 NG/ML (5.4-24.0); Vitamin B12 461 PG/ML (211-911)
[2017-09-06 20:39] LABS: Hepatitis A Ab IgM Result Negative (Negative); Hepatitis B Core IgM Quant 0.12 Index; Hepatitis B Core IgM Result Negative (Negative); Hepatitis B Surface Ag Quant 0.11 Index; Hepatitis B Surface Ag Result Negative (Negative); Hepatitis C Virus Ab Quant 0.12 Index; Hepatitis C Virus Ab Result Negative (Negative)
[2017-09-06 22:21] LABS: Barbiturates Screen,Urine Negative (Negative); Benzodiazepines Screen,Urine Negative (Negative); Cannabinoid Screen,Urine Negative (Negative); Opiate Screen,Urine Negative (Negative); Phencyclidine Screen,Urine Negative (Negative)
[2017-09-06] MEDS: DOXEPIN 25 MG CAPSULE PO SCH (22:24)
[2017-09-06] MEDS: FERROUS SULFATE 325 MG TABLET PO SCH (22:24)
[2017-09-06] MEDS: PANTOPRAZOLE 40 MG TABLET PO SCH (22:24)
[2017-09-06] MEDS: SERTRALINE 100 MG TABLET PO SCH (22:24)
[2017-09-06] MEDS: DOCUSATE SODIUM 100 MG CAPSULE PO SCH ×2 (22:24→22:33)
[2017-09-06] MEDS: ENOXAPARIN 40 MG/0.4 ML SYRINGE SUBCUT SCH (22:24)
[2017-09-06] MEDS: SODIUM CHLOR 0.9% KCL 20 MEQ 20 MEQ/1,000 ML BAG IV SCH (22:26)
[2017-09-06] MEDS: INSULIN REGULAR 100 UNIT/ML SUBCUT SCH (22:28)
[2017-09-06] MEDS: INSULIN GLARGINE 100 UNIT/ML SUBCUT SCH (22:29)
[2017-09-06 23:02] LABS: Basophils % 0.5 % (0.0-0.8); Eosinophils # 0.2 10*3/uL (0.0-0.87); Eosinophils % 2.9 % (0.00-10.9); Hematocrit 24.7 VOL% (42.0-52.0); Hemoglobin 7.3 GM/DL (14.0-18.0); Immature Granulocytes % 0.4 %; Immature Granulocytes Absolute 0.02 #; Lymphocytes # 0.7 10*3/uL (1.4-4.0); Mean Corpuscular HGB Conc 29.6 GM/DL (32-36); Mean Corpuscular Hemoglobin 28 PG (27-34); Mean Corpuscular Volume 93.6 FL (87-102); Mean Platelet Volume 9.7 FL (9.6-12.0); Monocytes # 0.8 10*3/uL (0.11-0.8); Monocytes % 13.8 % (1.7-12.7); Neutrophils # 3.9 10*3/uL (1.4-7.4); Neutrophils % 70.4 % (38.7-73.9); Platelet Count 153 T/CUMM (130-400); Red Blood Count 2.64 MC/CUMM (3.8-5.5); Red Cell Distribution Width 17.8 % (9.3-17.3); White Blood Count 5.5 T/CUMM (4-12)
[2017-09-07 00:08] LABS: Sedimentation Rate-Westergren 112 MM/HR (0-20)
[2017-09-07] MEDS: LACTULOSE 20 GM/30 ML UDCUP PO SCH ×6 (01:28→22:15)
[2017-09-07] MEDS: SODIUM CHLOR 0.9% KCL 20 MEQ 20 MEQ/1,000 ML BAG IV SCH ×2 (05:01→16:23)
[2017-09-07 07:39] LABS: Basophils % 0.8 % (0.0-0.8); Eosinophils # 0.2 10*3/uL (0.0-0.87); Hematocrit 25.6 VOL% (42.0-52.0); Hemoglobin 7.5 GM/DL (14.0-18.0); Immature Granulocytes % 0.6 %; Immature Granulocytes Absolute 0.03 #; Lymphocytes # 0.8 10*3/uL (1.4-4.0); Mean Corpuscular HGB Conc 29.3 GM/DL (32-36); Mean Corpuscular Hemoglobin 27 PG (27-34); Mean Corpuscular Volume 93.4 FL (87-102); Mean Platelet Volume 9.9 FL (9.6-12.0); Monocytes # 0.8 10*3/uL (0.11-0.8); Monocytes % 15.4 % (1.7-12.7); Neutrophils # 3.3 10*3/uL (1.4-7.4); Neutrophils % 64.2 % (38.7-73.9); Platelet Count 164 T/CUMM (130-400); Red Blood Count 2.74 MC/CUMM (3.8-5.5); White Blood Count 5.1 T/CUMM (4-12)
[2017-09-07] MEDS ORDERED: LORazepam 2 MG/1 ML VIAL IV PRN (07:50)
[2017-09-07 08:08] LABS: Albumin 2.6 G/DL (3.4-5.0); Bilirubin,Total 0.6 MG/DL (0.2-1.0); Calcium 8.4 MG/DL (8.5-10.1); Osmolality,Calculated 279.7 MOS/KG (273-304); Potassium 3.7 MMOL/L (3.5-5.1); Total Protein 7.1 G/DL (6.4-8.3)
[2017-09-07] MEDS ORDERED: ATORVASTATIN 40 MG TABLET PO SCH (09:00)
[2017-09-07] MEDS ORDERED: glipiZIDE 5 MG TABLET PO SCH (09:00)
[2017-09-07] MEDS ORDERED: ASPIRIN EC 325 MG TABLET PO SCH (09:00)
[2017-09-07] MEDS: THIAMINE 200 MG/2 ML VIAL IV SCH (09:24)
[2017-09-07] MEDS: INSULIN REGULAR 100 UNIT/ML SUBCUT SCH ×4 (09:26→22:17)
[2017-09-07] MEDS: MULTIVITAMIN (CENTRUM) TABLET PO SCH (09:27)
[2017-09-07] MEDS: FOLIC ACID 1 MG TABLET PO SCH (09:27)
[2017-09-07] MEDS: chlordiazePOXIDE 10 MG CAPSULE PO SCH ×2 (09:27→22:15)
[2017-09-07] MEDS: FERROUS SULFATE 325 MG TABLET PO SCH ×3 (09:27→22:15)
[2017-09-07] MEDS: DOCUSATE SODIUM 100 MG CAPSULE PO SCH ×2 (09:27→22:15)
[2017-09-07 11:09] LABS: Hemoglobin A1 (Alkaline) 98.1 % (96.5-98.5); Hemoglobin A2 (Alkaline) 1.9 % (1.5-3.5)
[2017-09-07] MEDS ORDERED: PRAMIPEXOLE 0.25 MG TABLET PO ONE (13:10)
[2017-09-07] MEDS: SERTRALINE 100 MG TABLET PO SCH (18:08)
[2017-09-07] MEDS ORDERED: PRAMIPEXOLE 0.25 MG TABLET PO SCH (21:00)
[2017-09-07] MEDS: DOXEPIN 25 MG CAPSULE PO SCH (22:15)
[2017-09-07] MEDS: PANTOPRAZOLE 40 MG TABLET PO SCH (22:15)
[2017-09-07] MEDS: ENOXAPARIN 40 MG/0.4 ML SYRINGE SUBCUT SCH (22:15)
[2017-09-07] MEDS: INSULIN GLARGINE 100 UNIT/ML SUBCUT SCH (22:16)
[2017-09-08] MEDS: SODIUM CHLOR 0.9% KCL 20 MEQ 20 MEQ/1,000 ML BAG IV SCH (01:22)
[2017-09-08] MEDS: LACTULOSE 20 GM/30 ML UDCUP PO SCH ×4 (01:22→13:05)
[2017-09-08 07:59] LABS: Basophils % 0.6 % (0.0-0.8); Eosinophils # 0.2 10*3/uL (0.0-0.87); Eosinophils % 3.4 % (0.00-10.9); Hematocrit 24.9 VOL% (42.0-52.0); Hemoglobin 7.2 GM/DL (14.0-18.0); Immature Granulocytes % 0.2 %; Immature Granulocytes Absolute 0.01 #; Lymphocytes # 0.7 10*3/uL (1.4-4.0); Mean Corpuscular HGB Conc 28.9 GM/DL (32-36); Mean Corpuscular Hemoglobin 27 PG (27-34); Mean Corpuscular Volume 93.6 FL (87-102); Mean Platelet Volume 9.8 FL (9.6-12.0); Monocytes # 0.7 10*3/uL (0.11-0.8); Monocytes % 14.2 % (1.7-12.7); Neutrophils # 3.1 10*3/uL (1.4-7.4); Neutrophils % 67.6 % (38.7-73.9); Platelet Count 154 T/CUMM (130-400); Red Blood Count 2.66 MC/CUMM (3.8-5.5); Red Cell Distribution Width 17.5 % (9.3-17.3); White Blood Count 4.6 T/CUMM (4-12)
[2017-09-08 08:36] LABS: Albumin 2.4 G/DL (3.4-5.0); Bilirubin,Total 0.5 MG/DL (0.2-1.0); Calcium 8.4 MG/DL (8.5-10.1); Osmolality,Calculated 277.5 MOS/KG (273-304); Potassium 3.7 MMOL/L (3.5-5.1)
[2017-09-08 08:38] LABS: Anisocytosis 1+; Hypochromasia 1+; Microcytosis 1+
[2017-09-08 08:39] LABS: Ovalocytes Slight; Platelet Estimate Adequate
[2017-09-08] MEDS: chlordiazePOXIDE 10 MG CAPSULE PO SCH (08:45)
[2017-09-08] MEDS: THIAMINE 200 MG/2 ML VIAL IV SCH (08:45)
[2017-09-08] MEDS: MULTIVITAMIN (CENTRUM) TABLET PO SCH (08:45)
[2017-09-08] MEDS: FERROUS SULFATE 325 MG TABLET PO SCH (08:46)
[2017-09-08] MEDS: FOLIC ACID 1 MG TABLET PO SCH (08:46)
[2017-09-08] MEDS: DOCUSATE SODIUM 100 MG CAPSULE PO SCH (08:46)
[2017-09-08] MEDS: INSULIN REGULAR 100 UNIT/ML SUBCUT SCH ×2 (08:52→13:05)
[2017-09-08 11:49] VITALS: BP 129/72
== END 2017-09-08 17:26 | disposition home or self-care (01) | DRG 442 ==
LOC: EDBD → EDUNIT# → N.ED 15:36 → N.EDINP 17:33 → SUATTDRO 17:35 → N.5E 18:15
PROVIDERS: ADMIT Internal Medicine; ATTEND Internal Medicine

== ENCOUNTER 2018-07-09 01:00 | Inpatient (IN) ==
[2018-07-09] MEDS ORDERED: SODIUM CHLORIDE 0.9% 1,000 ML IV STA (01:40)
[2018-07-09 03:00] LABS: Basophils % 0.2 % (0.0-0.8); Eosinophils # 0.2 10*3/uL (0.0-0.87); Eosinophils % 2.7 % (0.00-10.9); Hematocrit 28.7 VOL% (42.0-52.0); Hemoglobin 8.8 GM/DL (14.0-18.0); Immature Granulocytes % 0.4 %; Immature Granulocytes Absolute 0.02 #; Lymphocytes # 0.7 10*3/uL (1.4-4.0); Lymphocytes % 12.2 % (21.2-54.2); Mean Corpuscular HGB Conc 30.7 GM/DL (32-36); Mean Platelet Volume 9.3 FL (9.6-12.0); Neutrophils % 73.5 % (38.7-73.9); Platelet Count 105 T/CUMM (130-400); Red Blood Count 3.19 MC/CUMM (3.8-5.5); Red Cell Distribution Width 15.8 % (9.3-17.3); White Blood Count 5.5 T/CUMM (4-12)
[2018-07-09 03:14] LABS: Apearance,Urine CLEAR (Clear); Bilirubin,Urine Negative (Negative); Blood, Urine Negative (Negative); Glucose,Urine (UA) Negative (Negative); Ketones,Urine Negative (Negative); Mucus,Urine Occasional /LPF (Occasional); Nitrite,Urine Negative (Negative); Protein,Urine Negative; RBC,Urine 1 /HPF (0-4); Squamous Epithelial Cell,Urine Occasional /HPF (0-10); Urine Color Yellow (Yellow); Urine Specific Gravity 1.016 (1.001-1.035); WBC,Urine 4 /HPF (0-6)
[2018-07-09 03:19] LABS: Albumin 3.3 G/DL (3.4-5.0); Bilirubin,Total 0.6 MG/DL (0.2-1.0); Calcium 8.5 MG/DL (8.5-10.1); Osmolality,Calculated 284.3 MOS/KG (273-304); Total Protein 6.9 G/DL (6.4-8.3)
[2018-07-09] MEDS ORDERED: ONDANSETRON 4 MG/2 ML VIAL IV PRN (04:38)
[2018-07-09] MEDS ORDERED: ALBUTEROL 2.5 MG/3 ML NEB RESP TX PRN (04:38)
[2018-07-09] MEDS ORDERED: LACTULOSE 320 GM/480 ML BOTTLE RECTAL PRN (04:42)
[2018-07-09] MEDS ORDERED: GLUCAGON 1 MG VIAL IM PRN (04:46)
[2018-07-09] MEDS ORDERED: DEXTROSE 50% 25 GM/50 ML SYRINGE IV PRN (04:46)
[2018-07-09] MEDS: LACTULOSE 20 GM/30 ML UDCUP PO SCH ×5 (07:09→23:13)
[2018-07-09] MEDS ORDERED: PANTOPRAZOLE 40 MG VIAL IV SCH (09:00)
[2018-07-09] MEDS: INSULIN REGULAR 100 UNIT/ML SUBCUT SCH ×4 (09:24→20:53)
[2018-07-09] MEDS: ENOXAPARIN 40 MG/0.4 ML SYRINGE SUBCUT SCH (09:40)
[2018-07-09] MEDS ORDERED: cefOXitin 2,000 MG in SYRINGE 1 EACH IV ONE (10:30)
[2018-07-09 13:03] LABS: Basophils % 0.6 % (0.0-0.8); Eosinophils # 0.1 10*3/uL (0.0-0.87); Eosinophils % 1.6 % (0.00-10.9); Hematocrit 29.4 VOL% (42.0-52.0); Hemoglobin 9.1 GM/DL (14.0-18.0); Immature Granulocytes % 0.3 %; Immature Granulocytes Absolute 0.02 #; Lymphocytes # 0.6 10*3/uL (1.4-4.0); Lymphocytes % 8.9 % (21.2-54.2); Mean Corpuscular Volume 90.5 FL (87-102); Mean Platelet Volume 9.4 FL (9.6-12.0); Monocytes % 8.8 % (1.7-12.7); Neutrophils % 79.8 % (38.7-73.9); Platelet Count 128 T/CUMM (130-400); Red Blood Count 3.25 MC/CUMM (3.8-5.5); Red Cell Distribution Width 16.1 % (9.3-17.3); White Blood Count 6.8 T/CUMM (4-12)
[2018-07-09] MEDS: SODIUM CHLORIDE 0.9% 1,000 ML IV SCH (13:07)
[2018-07-09 19:59] LABS: Hematocrit 29.3 VOL% (42.0-52.0); Hemoglobin 9.1 GM/DL (14.0-18.0)
[2018-07-09] MEDS: PANTOPRAZOLE 40 MG VIAL IV SCH (20:54)
[2018-07-09] MEDS: RIFAXIMIN 550 MG TABLET PO SCH (23:13)
[2018-07-10] MEDS: SODIUM CHLORIDE 0.9% 1,000 ML IV SCH ×2 (01:14→10:14)
[2018-07-10] MEDS: LACTULOSE 20 GM/30 ML UDCUP PO SCH ×2 (02:33→06:58)
[2018-07-10 04:26] LABS: Basophils % 0.5 % (0.0-0.8); Eosinophils # 0.1 10*3/uL (0.0-0.87); Eosinophils % 1.5 % (0.00-10.9); Hematocrit 28.4 VOL% (42.0-52.0); Hemoglobin 8.6 GM/DL (14.0-18.0); Immature Granulocytes % 0.3 %; Immature Granulocytes Absolute 0.02 #; Lymphocytes # 0.9 10*3/uL (1.4-4.0); Lymphocytes % 14.5 % (21.2-54.2); Mean Corpuscular HGB Conc 30.3 GM/DL (32-36); Mean Platelet Volume 9.6 FL (9.6-12.0); Monocytes % 10.1 % (1.7-12.7); Neutrophils % 73.1 % (38.7-73.9); Platelet Count 118 T/CUMM (130-400); Red Blood Count 3.12 MC/CUMM (3.8-5.5); Red Cell Distribution Width 15.9 % (9.3-17.3)
[2018-07-10 04:53] LABS: Calcium 8.3 MG/DL (8.5-10.1); Osmolality,Calculated 289.8 MOS/KG (273-304); Total Protein 6.7 G/DL (6.4-8.3)
[2018-07-10] MEDS: INSULIN REGULAR 100 UNIT/ML SUBCUT SCH ×4 (08:03→21:57)
[2018-07-10] MEDS ORDERED: MIDAZOLAM 2 MG/2 ML VIAL ONE (08:55)
[2018-07-10] MEDS ORDERED: PROPOFOL 200 MG/20 ML VIAL IV ONE (10:00)
[2018-07-10] MEDS ORDERED: LIDOCAINE 2% 5 ML VIAL ONE (10:00)
[2018-07-10] MEDS: PANTOPRAZOLE 40 MG VIAL IV SCH ×2 (10:12→21:55)
[2018-07-10] MEDS: RIFAXIMIN 550 MG TABLET PO SCH ×2 (10:13→21:57)
[2018-07-10] MEDS: LACTULOSE 20 GM/30 ML UDCUP NG SCH ×4 (10:13→23:06)
[2018-07-10] MEDS: ENOXAPARIN 40 MG/0.4 ML SYRINGE SUBCUT SCH (10:14)
[2018-07-10] MEDS: 1: MULTIVITAMIN INJ 10 ML, FOLIC ACID INJ 1 MG, THIAMINE INJ 100 MG in SODIUM CHLORIDE 0 IV SCH ×2 (11:54→21:57)
[2018-07-11] MEDS: LACTULOSE 20 GM/30 ML UDCUP NG SCH ×6 (02:53→23:52)
[2018-07-11 05:29] LABS: Albumin 3.1 G/DL (3.4-5.0); Calcium 8.2 MG/DL (8.5-10.1); Osmolality,Calculated 283.3 MOS/KG (273-304); Total Protein 6.7 G/DL (6.4-8.3)
[2018-07-11 05:36] LABS: Basophils % 0.4 % (0.0-0.8); Eosinophils # 0.1 10*3/uL (0.0-0.87); Eosinophils % 2.9 % (0.00-10.9); Hematocrit 28.8 VOL% (42.0-52.0); Hemoglobin 8.6 GM/DL (14.0-18.0); Immature Granulocytes % 0.2 %; Immature Granulocytes Absolute 0.01 #; Lymphocytes # 0.8 10*3/uL (1.4-4.0); Lymphocytes % 17.4 % (21.2-54.2); Mean Corpuscular HGB Conc 29.9 GM/DL (32-36); Mean Corpuscular Volume 91.7 FL (87-102); Mean Platelet Volume 9.8 FL (9.6-12.0); Monocytes % 12.1 % (1.7-12.7); Platelet Count 118 T/CUMM (130-400); Red Blood Count 3.14 MC/CUMM (3.8-5.5); Red Cell Distribution Width 15.9 % (9.3-17.3); White Blood Count 4.5 T/CUMM (4-12)
[2018-07-11] MEDS: 1: MULTIVITAMIN INJ 10 ML, FOLIC ACID INJ 1 MG, THIAMINE INJ 100 MG in SODIUM CHLORIDE 0 IV SCH ×2 (06:51→17:25)
[2018-07-11] MEDS: RIFAXIMIN 550 MG TABLET PO SCH ×2 (09:31→20:48)
[2018-07-11] MEDS: PANTOPRAZOLE 40 MG VIAL IV SCH ×2 (09:31→20:48)
[2018-07-11] MEDS: INSULIN REGULAR 100 UNIT/ML SUBCUT SCH ×4 (10:05→20:48)
[2018-07-11] MEDS ORDERED: POTASSIUM CHLORIDE 20 MEQ TABLET PO ONE (11:00)
[2018-07-11] MEDS: FERROUS SULFATE 325 MG TABLET PO SCH (20:48)
[2018-07-12] MEDS: LACTULOSE 20 GM/30 ML UDCUP NG SCH ×5 (02:20→18:08)
[2018-07-12] MEDS: 1: MULTIVITAMIN INJ 10 ML, FOLIC ACID INJ 1 MG, THIAMINE INJ 100 MG in SODIUM CHLORIDE 0 IV SCH ×2 (03:11→13:31)
[2018-07-12 04:23] LABS: Basophils % 0.7 % (0.0-0.8); Eosinophils # 0.1 10*3/uL (0.0-0.87); Eosinophils % 3.1 % (0.00-10.9); Hemoglobin 8.3 GM/DL (14.0-18.0); Immature Granulocytes % 0.2 %; Immature Granulocytes Absolute 0.01 #; Lymphocytes # 0.8 10*3/uL (1.4-4.0); Mean Corpuscular HGB Conc 30.7 GM/DL (32-36); Mean Corpuscular Volume 91.5 FL (87-102); Mean Platelet Volume 9.7 FL (9.6-12.0); Monocytes % 14.2 % (1.7-12.7); Neutrophils % 63.8 % (38.7-73.9); Platelet Count 115 T/CUMM (130-400); Red Blood Count 2.95 MC/CUMM (3.8-5.5); Red Cell Distribution Width 15.9 % (9.3-17.3); White Blood Count 4.2 T/CUMM (4-12)
[2018-07-12 04:42] LABS: Albumin 2.9 G/DL (3.4-5.0); Bilirubin,Total 0.9 MG/DL (0.2-1.0); Calcium 8.2 MG/DL (8.5-10.1); Osmolality,Calculated 283.1 MOS/KG (273-304); Total Protein 6.4 G/DL (6.4-8.3)
[2018-07-12] MEDS: INSULIN REGULAR 100 UNIT/ML SUBCUT SCH ×4 (08:52→21:27)
[2018-07-12] MEDS ORDERED: ERGOCALCIFEROL 50,000 UNIT CAPSULE PO SCH (09:00)
[2018-07-12] MEDS: POTASSIUM CHLORIDE 20 MEQ TABLET PO SCH ×3 (11:32→18:08)
[2018-07-12] MEDS: PANTOPRAZOLE 40 MG VIAL IV SCH (11:32)
[2018-07-12] MEDS: MULTIVITAMIN (CENTRUM) TABLET PO SCH (11:33)
[2018-07-12] MEDS: FERROUS SULFATE 325 MG TABLET PO SCH ×3 (11:33→20:34)
[2018-07-12] MEDS: RIFAXIMIN 550 MG TABLET PO SCH ×2 (11:33→20:34)
[2018-07-12] MEDS ORDERED: ACETAMINOPHEN 500 MG TABLET PO PRN (20:10)
[2018-07-12] MEDS: LACTULOSE 20 GM/30 ML UDCUP PO SCH (20:33)
[2018-07-13] MEDS: 1: MULTIVITAMIN INJ 10 ML, FOLIC ACID INJ 1 MG, THIAMINE INJ 100 MG in SODIUM CHLORIDE 0 IV SCH ×2 (00:30→11:10)
[2018-07-13] MEDS: LACTULOSE 20 GM/30 ML UDCUP PO SCH ×3 (01:39→09:40)
[2018-07-13 04:04] LABS: Basophils % 0.6 % (0.0-0.8); Eosinophils # 0.1 10*3/uL (0.0-0.87); Eosinophils % 3.6 % (0.00-10.9); Hematocrit 26.5 VOL% (42.0-52.0); Hemoglobin 8.1 GM/DL (14.0-18.0); Immature Granulocytes % 0.3 %; Immature Granulocytes Absolute 0.01 #; Lymphocytes # 0.7 10*3/uL (1.4-4.0); Lymphocytes % 19.1 % (21.2-54.2); Mean Corpuscular HGB Conc 30.6 GM/DL (32-36); Mean Corpuscular Volume 89.8 FL (87-102); Mean Platelet Volume 9.6 FL (9.6-12.0); Monocytes % 14.4 % (1.7-12.7); Platelet Count 103 T/CUMM (130-400); Red Blood Count 2.95 MC/CUMM (3.8-5.5); Red Cell Distribution Width 15.6 % (9.3-17.3); White Blood Count 3.6 T/CUMM (4-12)
[2018-07-13 04:38] LABS: Calcium 8.2 MG/DL (8.5-10.1); Osmolality,Calculated 276.5 MOS/KG (273-304)
[2018-07-13 04:41] LABS: Albumin 2.9 G/DL (3.4-5.0); Bilirubin,Total 0.6 MG/DL (0.2-1.0); Calcium 8.1 MG/DL (8.5-10.1); Osmolality,Calculated 278.4 MOS/KG (273-304); Total Protein 6.3 G/DL (6.4-8.3)
[2018-07-13] MEDS ORDERED: PANTOPRAZOLE 40 MG TABLET PO SCH (09:00)
[2018-07-13] MEDS ORDERED: SPIRONOLACTONE 100 MG TABLET PO SCH (09:00)
[2018-07-13] MEDS: RIFAXIMIN 550 MG TABLET PO SCH (09:40)
[2018-07-13] MEDS: MULTIVITAMIN (CENTRUM) TABLET PO SCH (09:40)
[2018-07-13] MEDS: FERROUS SULFATE 325 MG TABLET PO SCH (09:40)
[2018-07-13] MEDS: INSULIN REGULAR 100 UNIT/ML SUBCUT SCH (09:49)
[2018-07-13 12:41] VITALS: BP 129/83
== END 2018-07-13 13:06 | disposition home or self-care (01) | DRG 432 ==
LOC: EDUNIT# → N.ED 01:00 → SUATTDRO 04:38 → N.EDINP 04:38 → N.ICU 05:03 → N.4E 07-12 23:31
PROVIDERS: ADMIT Internal Medicine; ATTEND Internal Medicine

== ENCOUNTER 2020-09-16 16:31 | Observation (INO) ==
[2020-09-16] MEDS ORDERED: SODIUM CHLORIDE 0.9% 1,000 ML IV STA (19:18)
[2020-09-16 19:25] LABS: Basophils % 1.1 % (0.0-0.8); Eosinophils # 0.2 10*3/uL (0.0-0.87); Eosinophils % 4.1 % (0.00-10.9); Hematocrit 33.5 VOL% (42.0-52.0); Hemoglobin 10.1 GM/DL (14.0-18.0); Immature Granulocytes % 0.3 %; Immature Granulocytes Absolute 0.01 #; Lymphocytes # 0.7 10*3/uL (1.4-4.0); Lymphocytes % 20.3 % (21.2-54.2); Mean Corpuscular HGB Conc 30.1 GM/DL (32-36); Mean Corpuscular Volume 88.6 FL (87-102); Mean Platelet Volume 9.5 FL (9.6-12.0); Monocytes % 14.8 % (1.7-12.7); Neutrophils % 59.4 % (38.7-73.9); Platelet Count 166 T/CUMM (130-400); Red Blood Count 3.78 MC/CUMM (3.8-5.5); Red Cell Distribution Width 21.3 % (9.3-17.3); White Blood Count 3.7 T/CUMM (4-12)
[2020-09-16 19:38] LABS: Bilirubin,Total 0.8 MG/DL (0.2-1.0); Calcium 8.6 MG/DL (8.5-10.1); Osmolality,Calculated 273.1 MOS/KG (273-304); Potassium 3.7 MMOL/L (3.5-5.1); Total Protein 7.3 G/DL (6.4-8.2)
[2020-09-16 21:12] LABS: Bilirubin,Urine Negative (Negative); Blood, Urine Negative (Negative); Calcium Oxalate Crystals,Urine Moderate /HPF (Few); Glucose,Urine (UA) 150 mg/dL (Negative); Ketones,Urine Negative (Negative); Mucus,Urine Occasional /LPF (Occasional); Nitrite,Urine Negative (Negative); Protein,Urine Negative; Urine Appearance CLEAR (Clear); Urine Color Yellow (Yellow)
[2020-09-16 21:19] LABS: PT Patient Result 11.5 SECS (10.5-12.0); Partial Thromboplastin Time 30.9 SECS (23.9-33.8)
[2020-09-16 21:23] LABS: Barbiturates Screen,Urine Negative (Negative); Benzodiazepines Screen,Urine Negative (Negative); Cannabinoid Screen,Urine Negative (Negative); Opiate Screen,Urine Negative (Negative); Phencyclidine Screen,Urine Negative (Negative)
[2020-09-16] MEDS ORDERED: LACTULOSE 20 GM/30 ML UDCUP PO STA (22:04)
[2020-09-16] MEDS ORDERED: DEXTROSE 50% 25 GM/50 ML VIAL IV PRN ×2 (22:05→22:20)
[2020-09-16] MEDS ORDERED: GLUCAGON 1 MG VIAL IM PRN (22:05)
[2020-09-16] MEDS ORDERED: ONDANSETRON 4 MG/2 ML VIAL IV PRN (22:20)
[2020-09-16] MEDS ORDERED: ACETAMINOPHEN 325 MG TABLET PO PRN (22:20)
[2020-09-17] MEDS ORDERED: LACTULOSE 20 GM/30 ML UDCUP PO SCH
[2020-09-17] MEDS: LACTULOSE 20 GM/30 ML UDCUP PO SCH ×3 (00:28→12:21)
[2020-09-17] MEDS ORDERED: ENOXAPARIN 40 MG/0.4 ML SYRINGE SUBCUT SCH (07:00)
[2020-09-17 07:03] LABS: Basophils % 1.2 % (0.0-0.8); Eosinophils # 0.1 10*3/uL (0.0-0.87); Eosinophils % 4.1 % (0.00-10.9); Hematocrit 28.3 VOL% (42.0-52.0); Hemoglobin 8.8 GM/DL (14.0-18.0); Immature Granulocytes % 0.3 %; Immature Granulocytes Absolute 0.01 #; Lymphocytes # 0.6 10*3/uL (1.4-4.0); Lymphocytes % 17.5 % (21.2-54.2); Mean Corpuscular HGB Conc 31.1 GM/DL (32-36); Mean Corpuscular Volume 87.3 FL (87-102); Mean Platelet Volume 9.2 FL (9.6-12.0); Neutrophils % 59.9 % (38.7-73.9); Platelet Count 134 T/CUMM (130-400); Red Blood Count 3.24 MC/CUMM (3.8-5.5); White Blood Count 3.4 T/CUMM (4-12)
[2020-09-17 07:22] LABS: Albumin 2.4 G/DL (3.4-5.0); Bilirubin,Total 0.8 MG/DL (0.2-1.0); Calcium 8.1 MG/DL (8.5-10.1); Osmolality,Calculated 275.7 MOS/KG (273-304); Potassium 3.4 MMOL/L (3.5-5.1); Total Protein 6.7 G/DL (6.4-8.2)
[2020-09-17 07:24] LABS: Band Neutrophils 1 % (0-10); Eosinophils 10 % (0-10); Hypochromasia 1+; Lymphocytes 11 % (20-55); Microcytosis 1+; Ovalocytes Slight; Segmented Neutrophils 69 % (50-85); Total Cells Counted 100
[2020-09-17] MEDS ORDERED: PANTOPRAZOLE 40 MG TABLET PO SCH (09:00)
[2020-09-17] MEDS: INSULIN REGULAR 100 UNIT/ML SUBCUT SCH ×2 (10:00→12:22)
[2020-09-17] MEDS: POTASSIUM CHLORIDE 20 MEQ TABLET PO PRN ×3 (10:00→15:02)
[2020-09-17 11:06] VITALS: BP 115/63
== END 2020-09-17 15:25 | disposition home or self-care (01) ==
LOC: N.EDINP 16:31 → N.ED 16:31 → SUATTDRO 22:05 → N.3E 23:10
PROVIDERS: ADMIT Internal Medicine; ATTEND Internal Medicine

== ENCOUNTER 2020-12-14 16:02 | Inpatient (IN) ==
[2020-12-14] MEDS ORDERED: SODIUM CHLORIDE 0.9% 1,000 ML IV STA (17:12)
[2020-12-14 17:56] LABS: Basophils % 0.2 % (0.0-0.8); Eosinophils # 0.1 10*3/uL (0.0-0.87); Eosinophils % 1.5 % (0.00-10.9); Hematocrit 27.9 VOL% (42.0-52.0); Hemoglobin 8.5 GM/DL (14.0-18.0); Immature Granulocytes % 0.5 %; Immature Granulocytes Absolute 0.02 #; Lymphocytes # 0.5 10*3/uL (1.4-4.0); Lymphocytes % 11.4 % (21.2-54.2); Mean Corpuscular HGB Conc 30.5 GM/DL (32-36); Mean Corpuscular Volume 82.1 FL (87-102); Mean Platelet Volume 10.5 FL (9.6-12.0); Monocytes % 15.6 % (1.7-12.7); Neutrophils % 70.8 % (38.7-73.9); Platelet Count 118 T/CUMM (130-400); Red Cell Distribution Width 15.1 % (9.3-17.3)
[2020-12-14 18:06] LABS: INR 1.1; PT Patient Result 12.6 SECS (10.5-12.0)
[2020-12-14 18:16] LABS: Albumin 2.1 G/DL (3.4-5.0); Bilirubin,Total 0.8 MG/DL (0.20-1.00); Calcium 8.1 MG/DL (8.5-10.1); Osmolality,Calculated 273.4 MOS/KG (273-304); Potassium 4.2 MMOL/L (3.5-5.1); Total Protein 6.7 G/DL (6.4-8.2)
[2020-12-14 18:18] LABS: Eosinophils 1 % (0-10); Hypochromasia 1+; Lymphocytes 10 % (20-55); Microcytosis 1+; Platelet Estimate Decreased; Segmented Neutrophils 78 % (50-85); Total Cells Counted 100
[2020-12-14] MEDS ORDERED: PIPERACILLIN/TAZOBACTAM 3,375 MG in SODIUM CHLORIDE 0.9% 100 ML IV STA ×2 (19:10→19:23)
[2020-12-14] MEDS ORDERED: ONDANSETRON 4 MG/2 ML VIAL IV PRN (19:12)
[2020-12-14] MEDS ORDERED: DEXTROSE 50% 25 GM/50 ML VIAL IV PRN ×2 (19:12)
[2020-12-14] MEDS ORDERED: GLUCAGON 1 MG VIAL IM PRN ×2 (19:12)
[2020-12-14] MEDS ORDERED: ENOXAPARIN 40 MG/0.4 ML SYRINGE SUBCUT SCH (19:30)
[2020-12-14] MEDS ORDERED: VANCOMYCIN INJ 1,000 MG in SODIUM CHLORIDE 0.9% 250 ML IV SCH (20:30)
[2020-12-14] MEDS: MORPHINE 2 MG/1 ML SYRINGE IV PRN (20:33)
[2020-12-14] MEDS: PROPRANOLOL 10 MG TABLET PO SCH (21:36)
[2020-12-14] MEDS: LACTULOSE 20 GM/30 ML UDCUP PO SCH (21:36)
[2020-12-14] MEDS: VANCOMYCIN INJ 1,250 MG in SODIUM CHLORIDE 0.9% 250 ML IV SCH (21:36)
[2020-12-14] MEDS: PRAMIPEXOLE 0.25 MG TABLET PO SCH (21:36)
[2020-12-14] MEDS: INSULIN LISPRO 100 UNIT/ML SUBCUT SCH (21:36)
[2020-12-14] MEDS: PREGABALIN 50 MG CAPSULE PO SCH (21:36)
[2020-12-14] MEDS: SERTRALINE 100 MG TABLET PO SCH (21:37)
[2020-12-14] MEDS: RIFAXIMIN 550 MG TABLET PO SCH (21:37)
[2020-12-15] MEDS: PIPERACILLIN/TAZOBACTAM 3,375 MG in SODIUM CHLORIDE 0.9% 100 ML IV SCH ×3 (03:44→21:22)
[2020-12-15 06:21] LABS: Basophils % 0.4 % (0.0-0.8); Eosinophils # 0.1 10*3/uL (0.0-0.87); Eosinophils % 2.2 % (0.00-10.9); Hematocrit 28.4 VOL% (42.0-52.0); Hemoglobin 8.7 GM/DL (14.0-18.0); Immature Granulocytes % 0.6 %; Immature Granulocytes Absolute 0.03 #; Lymphocytes # 0.5 10*3/uL (1.4-4.0); Lymphocytes % 9.4 % (21.2-54.2); Mean Corpuscular HGB Conc 30.6 GM/DL (32-36); Mean Platelet Volume 9.6 FL (9.6-12.0); Monocytes % 14.3 % (1.7-12.7); Neutrophils % 73.1 % (38.7-73.9); Platelet Count 138 T/CUMM (130-400); Red Blood Count 3.42 MC/CUMM (3.8-5.5); Red Cell Distribution Width 15.3 % (9.3-17.3)
[2020-12-15 06:39] LABS: Albumin 2.2 G/DL (3.4-5.0); Bilirubin,Total 1.4 MG/DL (0.20-1.00); Calcium 8.4 MG/DL (8.5-10.1); Osmolality,Calculated 272.2 MOS/KG (273-304); Potassium 4.1 MMOL/L (3.5-5.1)
[2020-12-15 06:46] LABS: Hypochromasia 1+; Lymphocytes 9 % (20-55); Microcytosis 1+; Platelet Estimate Normal; Segmented Neutrophils 76 % (50-85); Total Cells Counted 100
[2020-12-15] MEDS ORDERED: DEXTROSE 50% 25 GM/50 ML VIAL IV PRN (08:33)
[2020-12-15] MEDS ORDERED: GLUCAGON 1 MG VIAL IM PRN (08:33)
[2020-12-15] MEDS: LACTULOSE 20 GM/30 ML UDCUP PO SCH ×3 (08:36→21:22)
[2020-12-15] MEDS: PREGABALIN 50 MG CAPSULE PO SCH ×2 (08:36→21:23)
[2020-12-15] MEDS: PROPRANOLOL 10 MG TABLET PO SCH ×3 (08:36→21:23)
[2020-12-15] MEDS: MORPHINE 2 MG/1 ML SYRINGE IV PRN ×2 (08:39→17:31)
[2020-12-15] MEDS: INSULIN LISPRO 100 UNIT/ML SUBCUT SCH ×4 (08:52→21:52)
[2020-12-15] MEDS: RIFAXIMIN 550 MG TABLET PO SCH ×2 (08:55→21:23)
[2020-12-15] MEDS: VANCOMYCIN INJ 1,250 MG in SODIUM CHLORIDE 0.9% 250 ML IV SCH ×2 (08:55→21:24)
[2020-12-15] MEDS: PANTOPRAZOLE 40 MG TABLET PO SCH (09:03)
[2020-12-15] MEDS: PRAMIPEXOLE 0.25 MG TABLET PO SCH (21:23)
[2020-12-15] MEDS: SERTRALINE 100 MG TABLET PO SCH (21:24)
[2020-12-16] MEDS: PIPERACILLIN/TAZOBACTAM 3,375 MG in SODIUM CHLORIDE 0.9% 100 ML IV SCH ×2 (04:13→11:34)
[2020-12-16 05:51] LABS: Basophils % 0.8 % (0.0-0.8); Eosinophils # 0.3 10*3/uL (0.0-0.87); Eosinophils % 5.6 % (0.00-10.9); Hemoglobin 8.4 GM/DL (14.0-18.0); Immature Granulocytes % 0.4 %; Immature Granulocytes Absolute 0.02 #; Lymphocytes # 0.6 10*3/uL (1.4-4.0); Lymphocytes % 12.2 % (21.2-54.2); Mean Platelet Volume 9.9 FL (9.6-12.0); Monocytes % 15.1 % (1.7-12.7); Neutrophils % 65.9 % (38.7-73.9); Platelet Count 135 T/CUMM (130-400); Red Blood Count 3.41 MC/CUMM (3.8-5.5); Red Cell Distribution Width 15.3 % (9.3-17.3)
[2020-12-16 06:21] LABS: Eosinophils 2 % (0-10); Lymphocytes 16 % (20-55); Platelet Estimate Normal; Segmented Neutrophils 71 % (50-85); Total Cells Counted 100
[2020-12-16 06:22] LABS: Hypochromasia Slight
[2020-12-16 07:22] LABS: Albumin 2.1 G/DL (3.4-5.0); Osmolality,Calculated 275.2 MOS/KG (273-304); Potassium 3.7 MMOL/L (3.5-5.1); Total Protein 6.7 G/DL (6.4-8.2)
[2020-12-16] MEDS: INSULIN LISPRO 100 UNIT/ML SUBCUT SCH ×3 (09:08→16:43)
[2020-12-16] MEDS: PREGABALIN 50 MG CAPSULE PO SCH (09:09)
[2020-12-16] MEDS: PANTOPRAZOLE 40 MG TABLET PO SCH (09:10)
[2020-12-16] MEDS: PROPRANOLOL 10 MG TABLET PO SCH ×2 (09:10→15:32)
[2020-12-16] MEDS: RIFAXIMIN 550 MG TABLET PO SCH (09:10)
[2020-12-16] MEDS: VANCOMYCIN INJ 1,250 MG in SODIUM CHLORIDE 0.9% 250 ML IV SCH (09:10)
[2020-12-16] MEDS: LACTULOSE 20 GM/30 ML UDCUP PO SCH ×2 (09:12→15:32)
[2020-12-16] MEDS: MORPHINE 2 MG/1 ML SYRINGE IV PRN (09:16)
[2020-12-16] MEDS ORDERED: INFLUENZA VIRUS VACCINE 0.5 ML SYRINGE IM ONE (09:35)
[2020-12-16] MEDS ORDERED: ZINC OXIDE 16% PASTE 57 GM TUBE TOP SCH (12:00)
[2020-12-16 16:36] VITALS: BP 101/56
== END 2020-12-16 18:50 | disposition hospice, home (50) | DRG 920 ==
LOC: EDUNIT# → EDBD → N.ED 16:02 → N.EDINP 19:12 → N.3E 19:41
PROVIDERS: ADMIT Internal Medicine; ATTEND Internal Medicine

== ENCOUNTER 2021-05-07 10:18 | Inpatient (IN) ==
[2021-05-07 11:00] LABS: Basophils # 0.1 10*3/uL (0.0-0.2); Eosinophils # 0.2 10*3/uL (0.0-0.87); Eosinophils % 4.5 % (0.00-10.9); Hematocrit 30.2 VOL% (42.0-52.0); Hemoglobin 8.9 GM/DL (14.0-18.0); Immature Granulocytes % 0.4 %; Immature Granulocytes Absolute 0.02 #; Lymphocytes # 0.8 10*3/uL (1.4-4.0); Lymphocytes % 15.9 % (21.2-54.2); Mean Corpuscular HGB Conc 29.5 GM/DL (32-36); Mean Corpuscular Volume 80.3 FL (87-102); Mean Platelet Volume 10.4 FL (9.6-12.0); Monocytes % 12.4 % (1.7-12.7); Neutrophils % 65.8 % (38.7-73.9); Platelet Count 182 T/CUMM (130-400); Red Blood Count 3.76 MC/CUMM (3.8-5.5); Red Cell Distribution Width 16.2 % (9.3-17.3); White Blood Count 5.1 T/CUMM (4-12)
[2021-05-07 11:10] LABS: Alanine Aminotransferase 21 U/L (16-61); Alkaline Phosphatase 158 U/L (45-117); Aspartate Amino Transferase 17 U/L (0-37); Blood Urea Nitrogen 15 MG/DL (7-18); Calcium 9.2 MG/DL (8.5-10.1); Carbon Dioxide 22 MMOL/L (21-32); Estimated Glom Filtration Rate 94 ML/MIN; Glucose 242 MG/DL (74-106); Osmolality,Calculated 278.1 MOS/KG (273-304); Sodium 135 MMOL/L (136-145); Total Protein 8.3 G/DL (6.4-8.2)
[2021-05-07] MEDS ORDERED: DEXTROSE 10% 250 ML BAG IV PRN (12:28)
[2021-05-07] MEDS ORDERED: GLUCAGON 1 MG VIAL IM PRN ×2 (12:28→12:35)
[2021-05-07] MEDS ORDERED: DEXTROSE 50% 25 GM/50 ML VIAL IV PRN (12:35)
[2021-05-07 13:08] LABS: Barbiturates Screen,Urine Negative (Negative); Benzodiazepines Screen,Urine Negative (Negative); Cannabinoid Screen,Urine Negative (Negative); Opiate Screen,Urine Negative (Negative); Phencyclidine Screen,Urine Negative (Negative)
[2021-05-07] MEDS: LACTULOSE 20 GM/30 ML UDCUP PO SCH ×2 (13:23→19:17)
[2021-05-07 13:27] LABS: Bacteria,Urine Few /HPF (Few); Bilirubin,Urine Negative (Negative); Blood, Urine Negative (Negative); Glucose,Urine (UA) Negative (Negative); Ketones,Urine 5 mg/dL (Negative); Mucus,Urine Occasional /LPF (Occasional); Nitrite,Urine Positive (Negative); Protein,Urine 30 MG/DL; Urine Appearance Slightly Hazy (Clear); Urine Color Amber (Yellow); Urine Specific Gravity 1.017 (1.001-1.035)
[2021-05-07 13:46] LABS: INR 1.1; PT Patient Result 11.9 SECS (10.5-12.0)
[2021-05-07] MEDS: cefTRIAXone 1,000 MG in SODIUM CHLORIDE 0.9% 100 ML IV SCH (14:29)
[2021-05-07] MEDS: INSULIN LISPRO 100 UNIT/ML SUBCUT SCH ×2 (17:07→22:29)
[2021-05-07] MEDS: RIFAXIMIN 550 MG TABLET PO SCH (22:28)
[2021-05-07] MEDS: ENOXAPARIN 40 MG/0.4 ML SYRINGE SUBCUT SCH (22:28)
[2021-05-08] MEDS: LACTULOSE 20 GM/30 ML UDCUP PO SCH ×4 (01:47→18:19)
[2021-05-08 05:49] LABS: Basophils # 0.1 10*3/uL (0.0-0.2); Basophils % 1.2 % (0.0-0.8); Eosinophils # 0.2 10*3/uL (0.0-0.87); Eosinophils % 5.7 % (0.00-10.9); Hematocrit 30.6 VOL% (42.0-52.0); Immature Granulocytes % 0.5 %; Immature Granulocytes Absolute 0.02 #; Lymphocytes # 0.8 10*3/uL (1.4-4.0); Lymphocytes % 19.5 % (21.2-54.2); Mean Corpuscular HGB Conc 29.4 GM/DL (32-36); Mean Corpuscular Volume 80.7 FL (87-102); Mean Platelet Volume 10.5 FL (9.6-12.0); Monocytes % 14.8 % (1.7-12.7); Neutrophils % 58.3 % (38.7-73.9); Platelet Count 173 T/CUMM (130-400); Red Blood Count 3.79 MC/CUMM (3.8-5.5); Red Cell Distribution Width 16.2 % (9.3-17.3); White Blood Count 4.1 T/CUMM (4-12)
[2021-05-08 06:05] LABS: Albumin 2.9 G/DL (3.4-5.0); Bilirubin,Total 2.2 MG/DL (0.20-1.00); Calcium 8.7 MG/DL (8.5-10.1); Osmolality,Calculated 273.2 MOS/KG (273-304); Potassium 4.6 MMOL/L (3.5-5.1); Total Protein 8.1 G/DL (6.4-8.2)
[2021-05-08 06:22] LABS: Eosinophils 8 % (0-10); Hypochromia 1+; Lymphocytes 17 % (20-55); Segmented Neutrophils 60 % (50-85); Total Cells Counted 100
[2021-05-08 06:23] LABS: Microcytosis 1+; Ovalocytes Slight; Platelet Estimate Adequate; Polychromasia Slight; Target Cells Slight
[2021-05-08] MEDS: RIFAXIMIN 550 MG TABLET PO SCH ×2 (09:13→22:17)
[2021-05-08] MEDS: cefTRIAXone 1,000 MG in SODIUM CHLORIDE 0.9% 100 ML IV SCH (09:13)
[2021-05-08] MEDS: INSULIN LISPRO 100 UNIT/ML SUBCUT SCH ×4 (09:14→22:17)
[2021-05-08] MEDS: metroNIDAZOLE INJ 500 MG/100 ML PREMIX IV SCH ×2 (12:31→22:16)
[2021-05-08] MEDS ORDERED: NON-FORMULARY MEDICATION (Nut.Tx.Gluc.Intol,Lac-Free,Soy [Glucerna] Liquid) PO SCH (14:45)
[2021-05-08] MEDS: PROPRANOLOL 10 MG TABLET PO SCH ×2 (16:06→22:17)
[2021-05-08] MEDS: diphenhydrAMINE CAP 25 MG CAPSULE PO PRN (18:19)
[2021-05-08] MEDS: FERROUS SULFATE 325 MG TABLET PO SCH (22:17)
[2021-05-08] MEDS: PREGABALIN 100 MG CAPSULE PO SCH (22:21)
[2021-05-08] MEDS: ENOXAPARIN 40 MG/0.4 ML SYRINGE SUBCUT SCH (22:21)
[2021-05-09] MEDS: LACTULOSE 20 GM/30 ML UDCUP PO SCH ×4 (01:49→21:39)
[2021-05-09] MEDS: metroNIDAZOLE INJ 500 MG/100 ML PREMIX IV SCH ×2 (05:17→12:18)
[2021-05-09 07:37] LABS: Basophils % 0.9 % (0.0-0.8); Eosinophils # 0.3 10*3/uL (0.0-0.87); Eosinophils % 7.1 % (0.00-10.9); Hematocrit 29.5 VOL% (42.0-52.0); Hemoglobin 8.8 GM/DL (14.0-18.0); Immature Granulocytes % 0.2 %; Immature Granulocytes Absolute 0.01 #; Lymphocytes # 0.8 10*3/uL (1.4-4.0); Lymphocytes % 18.3 % (21.2-54.2); Mean Corpuscular HGB Conc 29.8 GM/DL (32-36); Mean Platelet Volume 9.8 FL (9.6-12.0); Monocytes % 18.1 % (1.7-12.7); Neutrophils % 55.4 % (38.7-73.9); Platelet Count 181 T/CUMM (130-400); Red Blood Count 3.64 MC/CUMM (3.8-5.5); Red Cell Distribution Width 16.1 % (9.3-17.3); White Blood Count 4.4 T/CUMM (4-12)
[2021-05-09 07:45] LABS: Calcium 8.5 MG/DL (8.5-10.1)
[2021-05-09 07:46] LABS: Albumin 2.6 G/DL (3.4-5.0); Bilirubin,Total 0.6 MG/DL (0.20-1.00); Osmolality,Calculated 272.5 MOS/KG (273-304); Total Protein 7.4 G/DL (6.4-8.2)
[2021-05-09 08:50] LABS: Band Neutrophils 1 % (0-10); Eosinophils 3 % (0-10); Hypochromia 1+; Lymphocytes 15 % (20-55); Segmented Neutrophils 64 % (50-85); Total Cells Counted 100
[2021-05-09 08:51] LABS: Microcytosis 1+; Ovalocytes Few; Platelet Estimate Adequate; Tear Drop Cells Slight
[2021-05-09] MEDS: oxyCODONE/ACETAMINOPHEN 5-325 MG TABLET PO PRN (09:56)
[2021-05-09] MEDS: sitaGLIPtin 100 MG TABLET PO SCH (09:56)
[2021-05-09] MEDS: FERROUS SULFATE 325 MG TABLET PO SCH ×2 (09:56→21:40)
[2021-05-09] MEDS: RIFAXIMIN 550 MG TABLET PO SCH ×2 (09:56→21:40)
[2021-05-09] MEDS: PROPRANOLOL 10 MG TABLET PO SCH ×3 (09:56→21:40)
[2021-05-09] MEDS: FUROSEMIDE 20 MG TABLET PO SCH (09:56)
[2021-05-09] MEDS: PREGABALIN 100 MG CAPSULE PO SCH ×2 (09:57→21:40)
[2021-05-09] MEDS: THIAMINE 100 MG TABLET PO SCH (09:57)
[2021-05-09] MEDS: INSULIN LISPRO 100 UNIT/ML SUBCUT SCH ×4 (09:57→21:40)
[2021-05-09] MEDS: cefTRIAXone 2,000 MG in SODIUM CHLORIDE 0.9% 100 ML IV SCH (09:59)
[2021-05-09] MEDS ORDERED: ONDANSETRON 4 MG/2 ML VIAL IV PRN (15:09)
[2021-05-09] MEDS: ENOXAPARIN 40 MG/0.4 ML SYRINGE SUBCUT SCH (21:41)
[2021-05-10] MEDS: LACTULOSE 20 GM/30 ML UDCUP PO SCH ×4 (01:57→22:53)
[2021-05-10] MEDS: oxyCODONE/ACETAMINOPHEN 5-325 MG TABLET PO PRN ×2 (04:26→20:59)
[2021-05-10] MEDS: diphenhydrAMINE CAP 25 MG CAPSULE PO PRN ×3 (04:30→20:58)
[2021-05-10 07:43] LABS: Albumin 2.5 G/DL (3.4-5.0); Bilirubin,Total 0.4 MG/DL (0.20-1.00); Calcium 8.8 MG/DL (8.5-10.1); Osmolality,Calculated 272.9 MOS/KG (273-304); Potassium 4.1 MMOL/L (3.5-5.1); Total Protein 7.4 G/DL (6.4-8.2)
[2021-05-10] MEDS: FERROUS SULFATE 325 MG TABLET PO SCH ×2 (09:11→20:59)
[2021-05-10] MEDS: PREGABALIN 100 MG CAPSULE PO SCH ×2 (09:11→20:59)
[2021-05-10] MEDS: THIAMINE 100 MG TABLET PO SCH (09:12)
[2021-05-10] MEDS: PROPRANOLOL 10 MG TABLET PO SCH ×3 (09:12→20:59)
[2021-05-10] MEDS: FUROSEMIDE 20 MG TABLET PO SCH (09:12)
[2021-05-10] MEDS: RIFAXIMIN 550 MG TABLET PO SCH ×2 (09:12→20:59)
[2021-05-10] MEDS: sitaGLIPtin 100 MG TABLET PO SCH (09:12)
[2021-05-10 10:58] LABS: Basophils # 0.1 # (0.0-0.1); Eosinophils # 0.3 # (0.0-0.70); Eosinophils % 6.6 % (0.0-10.0); Hematocrit 27.8 VOL% (42.0-52.0); Hemoglobin 8.5 GM/DL (14.0-18.0); Lymphocytes # 0.8 # (1.3-2.9); Lymphocytes % 15.8 % (20.5-45.5); Mean Corpuscular HGB Conc 30.6 GM/DL (32-36); Mean Corpuscular Volume 79.2 FL (80-94); Mean Platelet Volume 10.3 FL (7.4-10.4); Monocytes % 14.2 % (5.5-11.7); Platelet Count 191 T/CUMM (130-400); Red Blood Count 3.51 MC/CUMM (4.70-6.10); Red Cell Distribution Width 16.1 % (11.5-15.5); White Blood Count 5.1 T/CUMM (4.8-10.8)
[2021-05-10] MEDS: cefTRIAXone 2,000 MG in SODIUM CHLORIDE 0.9% 100 ML IV SCH (11:26)
[2021-05-10] MEDS: INSULIN LISPRO 100 UNIT/ML SUBCUT SCH ×5 (11:26→22:52)
[2021-05-10] MEDS: ENOXAPARIN 40 MG/0.4 ML SYRINGE SUBCUT SCH (20:59)
[2021-05-10] MEDS ORDERED: INSULIN GLARGINE 100 UNIT/ML SUBCUT SCH (21:00)
[2021-05-11] MEDS: LACTULOSE 20 GM/30 ML UDCUP PO SCH ×5 (05:15→22:27)
[2021-05-11] MEDS: diphenhydrAMINE CAP 25 MG CAPSULE PO PRN (09:46)
[2021-05-11] MEDS: INSULIN LISPRO 100 UNIT/ML SUBCUT SCH ×4 (09:46→22:25)
[2021-05-11] MEDS: oxyCODONE/ACETAMINOPHEN 5-325 MG TABLET PO PRN (09:47)
[2021-05-11] MEDS: FUROSEMIDE 20 MG TABLET PO SCH (09:48)
[2021-05-11] MEDS: sitaGLIPtin 100 MG TABLET PO SCH (09:48)
[2021-05-11] MEDS: PROPRANOLOL 10 MG TABLET PO SCH ×3 (09:48→22:26)
[2021-05-11] MEDS: FERROUS SULFATE 325 MG TABLET PO SCH ×2 (09:48→22:26)
[2021-05-11] MEDS: THIAMINE 100 MG TABLET PO SCH (09:48)
[2021-05-11] MEDS: RIFAXIMIN 550 MG TABLET PO SCH ×2 (09:48→22:25)
[2021-05-11] MEDS: cefTRIAXone 2,000 MG in SODIUM CHLORIDE 0.9% 100 ML IV SCH (09:49)
[2021-05-11] MEDS: PANTOPRAZOLE 40 MG TABLET PO SCH (09:49)
[2021-05-11] MEDS: PREGABALIN 100 MG CAPSULE PO SCH ×2 (09:49→22:25)
[2021-05-11] MEDS ORDERED: INSULIN GLARGINE 100 UNIT/ML SUBCUT SCH (21:00)
[2021-05-11] MEDS: ENOXAPARIN 40 MG/0.4 ML SYRINGE SUBCUT SCH (22:25)
[2021-05-12] MEDS: LACTULOSE 20 GM/30 ML UDCUP PO SCH ×2 (05:39→12:00)
[2021-05-12 06:07] LABS: Basophils % 0.8 % (0.0-0.8); Eosinophils # 0.3 10*3/uL (0.0-0.87); Eosinophils % 6.2 % (0.00-10.9); Hematocrit 29.2 VOL% (42.0-52.0); Hemoglobin 8.5 GM/DL (14.0-18.0); Immature Granulocytes % 0.4 %; Immature Granulocytes Absolute 0.02 #; Lymphocytes # 0.9 10*3/uL (1.4-4.0); Lymphocytes % 17.5 % (21.2-54.2); Mean Corpuscular HGB Conc 29.1 GM/DL (32-36); Mean Corpuscular Volume 82.3 FL (87-102); Mean Platelet Volume 10.1 FL (9.6-12.0); Monocytes % 16.7 % (1.7-12.7); Neutrophils % 58.4 % (38.7-73.9); Platelet Count 154 T/CUMM (130-400); Red Blood Count 3.55 MC/CUMM (3.8-5.5); Red Cell Distribution Width 16.3 % (9.3-17.3)
[2021-05-12 06:26] LABS: Calcium 8.3 MG/DL (8.5-10.1); Osmolality,Calculated 273.1 MOS/KG (273-304); Potassium 4.1 MMOL/L (3.5-5.1)
[2021-05-12 06:36] LABS: Band Neutrophils 1 % (0-10); Eosinophils 7 % (0-10); Hypochromia 1+; Lymphocytes 15 % (20-55); Microcytosis 1+; Platelet Estimate Adequate; Segmented Neutrophils 63 % (50-85); Total Cells Counted 100
[2021-05-12] MEDS: cefTRIAXone 2,000 MG in SODIUM CHLORIDE 0.9% 100 ML IV SCH (09:01)
[2021-05-12] MEDS: INSULIN LISPRO 100 UNIT/ML SUBCUT SCH ×2 (09:02→12:00)
[2021-05-12] MEDS: PROPRANOLOL 10 MG TABLET PO SCH (09:03)
[2021-05-12] MEDS: FERROUS SULFATE 325 MG TABLET PO SCH (09:03)
[2021-05-12] MEDS: sitaGLIPtin 100 MG TABLET PO SCH (09:03)
[2021-05-12] MEDS: THIAMINE 100 MG TABLET PO SCH (09:03)
[2021-05-12] MEDS: FUROSEMIDE 20 MG TABLET PO SCH (09:03)
[2021-05-12] MEDS: RIFAXIMIN 550 MG TABLET PO SCH (09:03)
[2021-05-12] MEDS: PANTOPRAZOLE 40 MG TABLET PO SCH (09:03)
[2021-05-12] MEDS: PREGABALIN 100 MG CAPSULE PO SCH (09:03)
[2021-05-12] MEDS: oxyCODONE/ACETAMINOPHEN 5-325 MG TABLET PO PRN (09:04)
[2021-05-12] MEDS: diphenhydrAMINE CAP 25 MG CAPSULE PO PRN (09:06)
[2021-05-12 12:28] VITALS: BP 97/44
== END 2021-05-12 14:56 | disposition home or self-care (01) | DRG 441 ==
LOC: N.ED 10:18 → SUATTDRO 12:28 → N.EDINP 12:28 → N.5E 17:45
PROVIDERS: ADMIT Internal Medicine; ATTEND Internal Medicine

== ENCOUNTER 2021-07-22 22:15 | Inpatient (IN) ==
[2021-07-22 22:37] LABS: Basophils % 0.7 % (0.0-0.8); Eosinophils # 0.1 10*3/uL (0.0-0.87); Eosinophils % 2.1 % (0.00-10.9); Hematocrit 31.1 VOL% (42.0-52.0); Hemoglobin 9.8 GM/DL (14.0-18.0); Immature Granulocytes % 0.5 %; Immature Granulocytes Absolute 0.02 #; Lymphocytes # 0.5 10*3/uL (1.4-4.0); Lymphocytes % 12.1 % (21.2-54.2); Mean Corpuscular HGB Conc 31.5 GM/DL (32-36); Mean Corpuscular Volume 82.3 FL (87-102); Mean Platelet Volume 9.8 FL (9.6-12.0); Monocytes # 0.5 10*3/uL (0.11-0.8); Monocytes % 11.2 % (1.7-12.7); Neutrophils % 73.4 % (38.7-73.9); Platelet Count 141 T/CUMM (130-400); Red Blood Count 3.78 MC/CUMM (3.8-5.5); Red Cell Distribution Width 18.5 % (9.3-17.3); White Blood Count 4.2 T/CUMM (4-12)
[2021-07-22 23:02] LABS: Alanine Aminotransferase 29 U/L (16-61); Alkaline Phosphatase 128 U/L (45-117); Aspartate Amino Transferase 29 U/L (0-37); Blood Urea Nitrogen 17 MG/DL (7-18); Calcium 9.6 MG/DL (8.5-10.1); Carbon Dioxide 21 MMOL/L (21-32); Chloride 107 MMOL/L (98-107); Estimated Glom Filtration Rate 87 ML/MIN; Glucose 390 MG/DL (74-106); Potassium 4.5 MMOL/L (3.5-5.1); Sodium 136 MMOL/L (136-145); Total Protein 7.9 G/DL (6.4-8.2)
[2021-07-22 23:08] LABS: Bacteria,Urine Occasional /HPF (Few); Hyaline Casts,Urine 1 /LPF (0-3); RBC,Urine 1 /HPF (0-4)
[2021-07-22 23:09] LABS: Bilirubin,Urine Negative (Negative); Blood, Urine Negative (Negative); Glucose,Urine (UA) >1000 mg/dL (Negative); Ketones,Urine Negative (Negative); Nitrite,Urine Negative (Negative); Protein,Urine Negative (Negative); Urine Appearance Clear (Clear); Urine Color Yellow (Yellow); Urine Urobilinogen 0.2 eU/dL (<2.0)
[2021-07-22 23:22] LABS: Barbiturates Screen,Urine Negative (Negative); Benzodiazepines Screen,Urine Negative (Negative); Cannabinoid Screen,Urine Negative (Negative); Opiate Screen,Urine Negative (Negative); Phencyclidine Screen,Urine Negative (Negative)
[2021-07-22] MEDS ORDERED: LACTULOSE 20 GM/30 ML UDCUP PO STA (23:25)
[2021-07-22] MEDS ORDERED: GLUCAGON 1 MG VIAL IM PRN (23:36)
[2021-07-22] MEDS ORDERED: DEXTROSE 10% 250 ML BAG IV PRN (23:36)
[2021-07-22] MEDS ORDERED: DEXTROSE 50% 25 GM/50 ML VIAL IV PRN (23:36)
[2021-07-23] MEDS ORDERED: INSULIN REGULAR 100 UNIT/ML SUBCUT STA (00:08)
[2021-07-23] MEDS: LACTULOSE 20 GM/30 ML UDCUP PO SCH ×6 (02:57→21:36)
[2021-07-23 03:55] LABS: Basophils % 0.9 % (0.0-0.8); Eosinophils # 0.1 10*3/uL (0.0-0.87); Eosinophils % 3.1 % (0.00-10.9); Hematocrit 29.3 VOL% (42.0-52.0); Hemoglobin 9.3 GM/DL (14.0-18.0); Immature Granulocytes % 0.2 %; Immature Granulocytes Absolute 0.01 #; Lymphocytes # 0.6 10*3/uL (1.4-4.0); Lymphocytes % 12.2 % (21.2-54.2); Mean Corpuscular HGB Conc 31.7 GM/DL (32-36); Mean Corpuscular Volume 81.2 FL (87-102); Mean Platelet Volume 9.4 FL (9.6-12.0); Monocytes # 0.6 10*3/uL (0.11-0.8); Monocytes % 13.4 % (1.7-12.7); Neutrophils % 70.2 % (38.7-73.9); Platelet Count 129 T/CUMM (130-400); Red Blood Count 3.61 MC/CUMM (3.8-5.5); Red Cell Distribution Width 18.3 % (9.3-17.3); White Blood Count 4.5 T/CUMM (4-12)
[2021-07-23 04:02] LABS: PT Patient Result 11.1 SECS (10.5-12.0)
[2021-07-23 04:33] LABS: Albumin 2.9 G/DL (3.4-5.0); Bilirubin,Total 0.4 MG/DL (0.20-1.00); Calcium 9.9 MG/DL (8.5-10.1); Osmolality,Calculated 283.7 MOS/KG (273-304); Potassium 4.1 MMOL/L (3.5-5.1); Total Protein 7.6 G/DL (6.4-8.2)
[2021-07-23] MEDS ORDERED: LACTULOSE 320 GM/480 ML BOTTLE RECTAL PRN (06:06)
[2021-07-23] MEDS ORDERED: PNEUMOCOCCAL VACCINE (23 VALENT) 0.5 ML VIAL IM ONE (09:00)
[2021-07-23] MEDS: INSULIN REGULAR 100 UNIT/ML SUBCUT SCH ×4 (09:08→20:59)
[2021-07-23] MEDS: ENOXAPARIN 40 MG/0.4 ML SYRINGE SUBCUT SCH (09:08)
[2021-07-24] MEDS: LACTULOSE 20 GM/30 ML UDCUP PO SCH ×4 (01:14→20:54)
[2021-07-24 06:45] LABS: Calcium 9.6 MG/DL (8.5-10.1); Osmolality,Calculated 281.5 MOS/KG (273-304); Potassium 4.1 MMOL/L (3.5-5.1)
[2021-07-24 06:54] LABS: Basophils % 0.8 % (0.0-0.8); Eosinophils # 0.2 10*3/uL (0.0-0.87); Eosinophils % 3.4 % (0.00-10.9); Hematocrit 34.4 VOL% (42.0-52.0); Hemoglobin 10.6 GM/DL (14.0-18.0); Immature Granulocytes % 0.4 %; Immature Granulocytes Absolute 0.02 #; Lymphocytes # 0.8 10*3/uL (1.4-4.0); Lymphocytes % 17.5 % (21.2-54.2); Mean Corpuscular HGB Conc 30.8 GM/DL (32-36); Mean Corpuscular Volume 82.1 FL (87-102); Monocytes # 0.8 10*3/uL (0.11-0.8); Monocytes % 16.8 % (1.7-12.7); NRBC # 0.03 10*3/uL; Neutrophils % 61.1 % (38.7-73.9); Platelet Count 112 T/CUMM (130-400); Red Blood Count 4.19 MC/CUMM (3.8-5.5); Red Cell Distribution Width 18.8 % (9.3-17.3); White Blood Count 4.8 T/CUMM (4-12)
[2021-07-24 07:59] LABS: Band Neutrophils 3 % (0-10); Lymphocytes 17 % (20-55); Platelet Estimate Adequate; Total Cells Counted 100
[2021-07-24 08:00] LABS: Anisocytosis Slight
[2021-07-24] MEDS: ENOXAPARIN 40 MG/0.4 ML SYRINGE SUBCUT SCH (09:04)
[2021-07-24] MEDS: INSULIN REGULAR 100 UNIT/ML SUBCUT SCH ×4 (09:18→20:55)
[2021-07-24] MEDS: RIFAXIMIN 550 MG TABLET PO SCH ×2 (15:00→20:54)
[2021-07-25 06:35] LABS: Basophils % 1.1 % (0.0-0.8); Eosinophils # 0.2 10*3/uL (0.0-0.87); Eosinophils % 4.4 % (0.00-10.9); Hematocrit 31.4 VOL% (42.0-52.0); Immature Granulocytes % 0.3 %; Immature Granulocytes Absolute 0.01 #; Lymphocytes # 0.7 10*3/uL (1.4-4.0); Lymphocytes % 20.4 % (21.2-54.2); Mean Corpuscular HGB Conc 31.8 GM/DL (32-36); Mean Corpuscular Volume 82.8 FL (87-102); Mean Platelet Volume 9.8 FL (9.6-12.0); Monocytes # 0.5 10*3/uL (0.11-0.8); Monocytes % 14.6 % (1.7-12.7); Neutrophils % 59.2 % (38.7-73.9); Platelet Count 124 T/CUMM (130-400); Red Blood Count 3.79 MC/CUMM (3.8-5.5); Red Cell Distribution Width 18.5 % (9.3-17.3); White Blood Count 3.6 T/CUMM (4-12)
[2021-07-25 06:41] LABS: Calcium 9.2 MG/DL (8.5-10.1); Potassium 3.8 MMOL/L (3.5-5.1)
[2021-07-25] MEDS: ENOXAPARIN 40 MG/0.4 ML SYRINGE SUBCUT SCH (08:37)
[2021-07-25] MEDS: LACTULOSE 20 GM/30 ML UDCUP PO SCH ×3 (08:37→21:24)
[2021-07-25] MEDS: RIFAXIMIN 550 MG TABLET PO SCH ×2 (08:37→21:24)
[2021-07-25] MEDS ORDERED: ERGOCALCIFEROL 50,000 UNIT CAPSULE PO SCH (09:00)
[2021-07-25] MEDS: INSULIN REGULAR 100 UNIT/ML SUBCUT SCH ×4 (09:35→21:25)
[2021-07-25] MEDS: MULTIVITAMIN (CENTRUM) TABLET PO SCH (09:36)
[2021-07-25] MEDS: FERROUS SULFATE 325 MG TABLET PO SCH ×2 (09:36→21:25)
[2021-07-25] MEDS: THIAMINE 100 MG TABLET PO SCH ×3 (09:36→21:25)
[2021-07-25] MEDS: FOLIC ACID 1 MG TABLET PO SCH ×2 (09:36→21:24)
[2021-07-25] MEDS: CYANOCOBALAMIN 500 MCG TABLET PO SCH (09:37)
[2021-07-26 06:19] LABS: Basophils % 0.8 % (0.0-0.8); Eosinophils # 0.2 10*3/uL (0.0-0.87); Hematocrit 31.5 VOL% (42.0-52.0); Hemoglobin 9.9 GM/DL (14.0-18.0); Immature Granulocytes % 0.3 %; Immature Granulocytes Absolute 0.01 #; Lymphocytes # 0.8 10*3/uL (1.4-4.0); Lymphocytes % 21.9 % (21.2-54.2); Mean Corpuscular HGB Conc 31.4 GM/DL (32-36); Mean Corpuscular Volume 82.5 FL (87-102); Mean Platelet Volume 9.9 FL (9.6-12.0); Monocytes # 0.6 10*3/uL (0.11-0.8); Monocytes % 15.8 % (1.7-12.7); Neutrophils % 56.2 % (38.7-73.9); Platelet Count 130 T/CUMM (130-400); Red Blood Count 3.82 MC/CUMM (3.8-5.5); Red Cell Distribution Width 18.2 % (9.3-17.3); White Blood Count 3.6 T/CUMM (4-12)
[2021-07-26 06:37] LABS: Calcium 9.4 MG/DL (8.5-10.1); Osmolality,Calculated 266.4 MOS/KG (273-304); Potassium 4.2 MMOL/L (3.5-5.1)
[2021-07-26 06:41] LABS: Eosinophils 7 % (0-10); Lymphocytes 28 % (20-55); Platelet Estimate Normal; Total Cells Counted 100
[2021-07-26] MEDS: INSULIN REGULAR 100 UNIT/ML SUBCUT SCH ×4 (09:27→22:13)
[2021-07-26] MEDS: LACTULOSE 20 GM/30 ML UDCUP PO SCH ×3 (10:33→22:12)
[2021-07-26] MEDS: SPIRONOLACTONE 100 MG TABLET PO SCH (10:34)
[2021-07-26] MEDS: FUROSEMIDE 20 MG TABLET PO SCH (10:35)
[2021-07-26] MEDS: FERROUS SULFATE 325 MG TABLET PO SCH ×2 (10:35→22:13)
[2021-07-26] MEDS: MULTIVITAMIN (CENTRUM) TABLET PO SCH (10:35)
[2021-07-26] MEDS: CYANOCOBALAMIN 500 MCG TABLET PO SCH (10:35)
[2021-07-26] MEDS: THIAMINE 100 MG TABLET PO SCH ×3 (10:35→22:12)
[2021-07-26] MEDS: RIFAXIMIN 550 MG TABLET PO SCH ×2 (10:35→22:12)
[2021-07-26] MEDS: FOLIC ACID 1 MG TABLET PO SCH ×2 (10:36→22:13)
[2021-07-26] MEDS: ENOXAPARIN 40 MG/0.4 ML SYRINGE SUBCUT SCH (10:36)
[2021-07-26] MEDS: INSULIN GLARGINE 100 UNIT/ML SUBCUT SCH (22:14)
[2021-07-27 05:28] LABS: Eosinophils # 0.2 10*3/uL (0.0-0.87); Hematocrit 32.6 VOL% (42.0-52.0); Hemoglobin 10.2 GM/DL (14.0-18.0); Immature Granulocytes % 0.2 %; Immature Granulocytes Absolute 0.01 #; Lymphocytes # 0.9 10*3/uL (1.4-4.0); Lymphocytes % 21.4 % (21.2-54.2); Mean Corpuscular HGB Conc 31.3 GM/DL (32-36); Mean Corpuscular Volume 83.2 FL (87-102); Mean Platelet Volume 10.3 FL (9.6-12.0); Monocytes # 0.8 10*3/uL (0.11-0.8); Monocytes % 19.5 % (1.7-12.7); Neutrophils % 52.9 % (38.7-73.9); Platelet Count 145 T/CUMM (130-400); Red Blood Count 3.92 MC/CUMM (3.8-5.5); White Blood Count 4.2 T/CUMM (4-12)
[2021-07-27 05:51] LABS: Calcium 9.6 MG/DL (8.5-10.1); Osmolality,Calculated 266.4 MOS/KG (273-304); Potassium 4.3 MMOL/L (3.5-5.1)
[2021-07-27 05:53] LABS: Eosinophils 6 % (0-10); Lymphocytes 15 % (20-55); Platelet Estimate Adequate; Total Cells Counted 100
[2021-07-27] MEDS: FOLIC ACID 1 MG TABLET PO SCH ×2 (09:07→22:26)
[2021-07-27] MEDS: MULTIVITAMIN (CENTRUM) TABLET PO SCH (09:07)
[2021-07-27] MEDS: SPIRONOLACTONE 100 MG TABLET PO SCH (09:07)
[2021-07-27] MEDS: ENOXAPARIN 40 MG/0.4 ML SYRINGE SUBCUT SCH (09:07)
[2021-07-27] MEDS: THIAMINE 100 MG TABLET PO SCH ×3 (09:07→22:26)
[2021-07-27] MEDS: LACTULOSE 20 GM/30 ML UDCUP PO SCH ×3 (09:07→22:26)
[2021-07-27] MEDS: FERROUS SULFATE 325 MG TABLET PO SCH ×2 (09:07→22:26)
[2021-07-27] MEDS: FUROSEMIDE 20 MG TABLET PO SCH (09:07)
[2021-07-27] MEDS: INSULIN REGULAR 100 UNIT/ML SUBCUT SCH ×4 (09:07→22:26)
[2021-07-27] MEDS: RIFAXIMIN 550 MG TABLET PO SCH ×2 (09:08→22:26)
[2021-07-27] MEDS: CYANOCOBALAMIN 500 MCG TABLET PO SCH (09:08)
[2021-07-27] MEDS ORDERED: TUBERCULIN SKIN TEST 0.1 ML SYRINGE INTRADERM ONE (15:00)
[2021-07-27] MEDS: INSULIN GLARGINE 100 UNIT/ML SUBCUT SCH (22:26)
[2021-07-28 09:17] LABS: Basophils % 0.9 % (0.0-0.8); Eosinophils # 0.2 10*3/uL (0.0-0.87); Eosinophils % 3.8 % (0.00-10.9); Hemoglobin 10.8 GM/DL (14.0-18.0); Immature Granulocytes % 0.2 %; Immature Granulocytes Absolute 0.01 #; Lymphocytes # 0.7 10*3/uL (1.4-4.0); Lymphocytes % 16.2 % (21.2-54.2); Mean Corpuscular HGB Conc 31.8 GM/DL (32-36); Mean Corpuscular Volume 82.7 FL (87-102); Mean Platelet Volume 10.4 FL (9.6-12.0); Monocytes # 0.7 10*3/uL (0.11-0.8); Neutrophils % 62.9 % (38.7-73.9); Platelet Count 169 T/CUMM (130-400); Red Blood Count 4.11 MC/CUMM (3.8-5.5); Red Cell Distribution Width 18.4 % (9.3-17.3); White Blood Count 4.5 T/CUMM (4-12)
[2021-07-28 09:39] LABS: Eosinophils 4 % (0-10); Lymphocytes 18 % (20-55); Platelet Estimate Adequate; Total Cells Counted 100
[2021-07-28 09:41] LABS: Albumin 2.9 G/DL (3.4-5.0); Bilirubin,Total 0.7 MG/DL (0.20-1.00); Calcium 9.5 MG/DL (8.5-10.1); Osmolality,Calculated 269.7 MOS/KG (273-304); Potassium 4.9 MMOL/L (3.5-5.1)
[2021-07-28] MEDS: INSULIN REGULAR 100 UNIT/ML SUBCUT SCH ×4 (10:22→21:39)
[2021-07-28] MEDS: LACTULOSE 20 GM/30 ML UDCUP PO SCH ×4 (10:23→21:38)
[2021-07-28] MEDS: MULTIVITAMIN (CENTRUM) TABLET PO SCH (10:23)
[2021-07-28] MEDS: SPIRONOLACTONE 100 MG TABLET PO SCH (10:23)
[2021-07-28] MEDS: FUROSEMIDE 20 MG TABLET PO SCH (10:24)
[2021-07-28] MEDS: FERROUS SULFATE 325 MG TABLET PO SCH ×2 (10:24→21:39)
[2021-07-28] MEDS: ENOXAPARIN 40 MG/0.4 ML SYRINGE SUBCUT SCH (10:24)
[2021-07-28] MEDS: FOLIC ACID 1 MG TABLET PO SCH ×2 (10:24→21:38)
[2021-07-28] MEDS: CYANOCOBALAMIN 500 MCG TABLET PO SCH (10:25)
[2021-07-28] MEDS: RIFAXIMIN 550 MG TABLET PO SCH ×2 (10:25→21:38)
[2021-07-28] MEDS: THIAMINE 100 MG TABLET PO SCH ×3 (10:25→21:39)
[2021-07-28] MEDS: INSULIN GLARGINE 100 UNIT/ML SUBCUT SCH (21:39)
[2021-07-29] MEDS: LACTULOSE 20 GM/30 ML UDCUP PO SCH ×6 (01:56→23:19)
[2021-07-29 05:35] LABS: Basophils # 0.1 10*3/uL (0.0-0.2); Basophils % 1.6 % (0.0-0.8); Eosinophils # 0.2 10*3/uL (0.0-0.87); Eosinophils % 4.9 % (0.00-10.9); Hematocrit 33.9 VOL% (42.0-52.0); Hemoglobin 10.7 GM/DL (14.0-18.0); Immature Granulocytes % 0.3 %; Immature Granulocytes Absolute 0.01 #; Lymphocytes # 0.9 10*3/uL (1.4-4.0); Lymphocytes % 22.5 % (21.2-54.2); Mean Corpuscular HGB Conc 31.6 GM/DL (32-36); Mean Corpuscular Volume 82.3 FL (87-102); Monocytes # 0.8 10*3/uL (0.11-0.8); Monocytes % 21.4 % (1.7-12.7); Neutrophils % 49.3 % (38.7-73.9); Platelet Count 188 T/CUMM (130-400); Red Blood Count 4.12 MC/CUMM (3.8-5.5); Red Cell Distribution Width 18.5 % (9.3-17.3); White Blood Count 3.9 T/CUMM (4-12)
[2021-07-29 05:52] LABS: Albumin 3.2 G/DL (3.4-5.0); Bilirubin,Total 0.8 MG/DL (0.20-1.00); Calcium 9.7 MG/DL (8.5-10.1); Osmolality,Calculated 274.1 MOS/KG (273-304)
[2021-07-29 05:58] LABS: Eosinophils 2 % (0-10); Lymphocytes 26 % (20-55); Platelet Estimate Adequate; Total Cells Counted 100
[2021-07-29] MEDS: FUROSEMIDE 20 MG TABLET PO SCH (08:34)
[2021-07-29] MEDS: INSULIN REGULAR 100 UNIT/ML SUBCUT SCH ×4 (08:34→23:18)
[2021-07-29] MEDS: CYANOCOBALAMIN 500 MCG TABLET PO SCH (08:34)
[2021-07-29] MEDS: THIAMINE 100 MG TABLET PO SCH ×3 (08:34→23:22)
[2021-07-29] MEDS: FOLIC ACID 1 MG TABLET PO SCH ×2 (08:35→23:19)
[2021-07-29] MEDS: SPIRONOLACTONE 100 MG TABLET PO SCH (08:35)
[2021-07-29] MEDS: RIFAXIMIN 550 MG TABLET PO SCH ×2 (08:35→23:18)
[2021-07-29] MEDS: MULTIVITAMIN (CENTRUM) TABLET PO SCH (08:35)
[2021-07-29] MEDS: FERROUS SULFATE 325 MG TABLET PO SCH ×2 (08:35→23:19)
[2021-07-29] MEDS: ENOXAPARIN 40 MG/0.4 ML SYRINGE SUBCUT SCH (08:36)
[2021-07-29] MEDS ORDERED: INSULIN GLARGINE 100 UNIT/ML SUBCUT SCH (21:00)
[2021-07-30] MEDS: LACTULOSE 20 GM/30 ML UDCUP PO SCH ×4 (02:19→12:16)
[2021-07-30 05:01] LABS: Basophils # 0.1 10*3/uL (0.0-0.2); Basophils % 1.4 % (0.0-0.8); Eosinophils # 0.3 10*3/uL (0.0-0.87); Eosinophils % 5.9 % (0.00-10.9); Hematocrit 35.4 VOL% (42.0-52.0); Hemoglobin 11.2 GM/DL (14.0-18.0); Immature Granulocytes % 0.2 %; Immature Granulocytes Absolute 0.01 #; Lymphocytes % 22.6 % (21.2-54.2); Mean Corpuscular HGB Conc 31.6 GM/DL (32-36); Mean Corpuscular Volume 83.3 FL (87-102); Mean Platelet Volume 9.8 FL (9.6-12.0); Monocytes # 0.9 10*3/uL (0.11-0.8); Monocytes % 20.2 % (1.7-12.7); Neutrophils % 49.7 % (38.7-73.9); Platelet Count 173 T/CUMM (130-400); Red Blood Count 4.25 MC/CUMM (3.8-5.5); Red Cell Distribution Width 18.4 % (9.3-17.3); White Blood Count 4.3 T/CUMM (4-12)
[2021-07-30 05:19] LABS: Albumin 3.2 G/DL (3.4-5.0); Bilirubin,Total 0.7 MG/DL (0.20-1.00); Calcium 9.7 MG/DL (8.5-10.1); Osmolality,Calculated 274.1 MOS/KG (273-304); Potassium 4.1 MMOL/L (3.5-5.1); Total Protein 8.1 G/DL (6.4-8.2)
[2021-07-30 05:23] LABS: Eosinophils 8 % (0-10); Lymphocytes 19 % (20-55); Platelet Estimate Adequate; Total Cells Counted 100
[2021-07-30] MEDS: SPIRONOLACTONE 100 MG TABLET PO SCH (10:33)
[2021-07-30] MEDS: ENOXAPARIN 40 MG/0.4 ML SYRINGE SUBCUT SCH (10:33)
[2021-07-30] MEDS: FERROUS SULFATE 325 MG TABLET PO SCH (10:33)
[2021-07-30] MEDS: MULTIVITAMIN (CENTRUM) TABLET PO SCH (10:33)
[2021-07-30] MEDS: THIAMINE 100 MG TABLET PO SCH (10:34)
[2021-07-30] MEDS: RIFAXIMIN 550 MG TABLET PO SCH (10:34)
[2021-07-30] MEDS: FOLIC ACID 1 MG TABLET PO SCH (10:34)
[2021-07-30] MEDS: FUROSEMIDE 20 MG TABLET PO SCH (10:35)
[2021-07-30] MEDS: CYANOCOBALAMIN 500 MCG TABLET PO SCH (10:35)
[2021-07-30 12:08] VITALS: BP 111/63
[2021-07-30] MEDS: INSULIN REGULAR 100 UNIT/ML SUBCUT SCH ×2 (12:16→12:21)
[2021-07-30] MEDS ORDERED: PNEUMOCOCCAL VACCINE (23 VALENT) 0.5 ML VIAL IM ONE (14:30)
== END 2021-07-30 14:35 | disposition swing bed (61) | DRG 434 ==
LOC: EDUNIT# → EDBD → N.ED 22:15 → N.EDINP 23:36 → N.5E 07-23 05:30
PROVIDERS: ADMIT Emergency Medicine; ATTEND Emergency Medicine

== ENCOUNTER 2021-09-08 18:52 | Inpatient (IN) ==
[2021-09-08] MEDS ORDERED: ONDANSETRON 4 MG/2 ML VIAL IV STA (19:17)
[2021-09-08 19:51] LABS: Alanine Aminotransferase 27 U/L (16-61); Alkaline Phosphatase 139 U/L (45-117); Aspartate Amino Transferase 51 U/L (0-37); Blood Urea Nitrogen 13 MG/DL (7-18); Calcium 7.8 MG/DL (8.5-10.1); Carbon Dioxide 17 MMOL/L (21-32); Chloride 105 MMOL/L (98-107); Glucose 251 MG/DL (74-106); Osmolality,Calculated 277.1 MOS/KG (273-304); Potassium 3.4 MMOL/L (3.5-5.1); Sodium 135 MMOL/L (136-145); Total Protein 5.2 G/DL (6.4-8.2)
[2021-09-08 19:51] LABS: Basophils % 0.2 % (0.0-0.8); Eosinophils % 0.4 % (0.00-10.9); Hematocrit 31.4 VOL% (42.0-52.0); Hemoglobin 10.2 GM/DL (14.0-18.0); Immature Granulocytes % 0.7 %; Immature Granulocytes Absolute 0.03 #; Lymphocytes # 0.1 10*3/uL (1.4-4.0); Lymphocytes % 2.7 % (21.2-54.2); Mean Corpuscular HGB Conc 32.5 GM/DL (32-36); Mean Corpuscular Volume 84.6 FL (87-102); Mean Platelet Volume 10.3 FL (9.6-12.0); Monocytes % 0.7 % (1.7-12.7); Neutrophils % 95.3 % (38.7-73.9); Platelet Count 103 T/CUMM (130-400); Red Blood Count 3.71 MC/CUMM (3.8-5.5); Red Cell Distribution Width 16.2 % (9.3-17.3); White Blood Count 4.5 T/CUMM (4-12)
[2021-09-08] MEDS: PHENYLEPHRINE DRIP 40 MG/250 ML PREMIX IV PRN (19:59)
[2021-09-08 20:27] LABS: Atypical Lymphocytes 1+; Band Neutrophils 2 % (0-10); Eosinophils 5 % (0-10); Lymphocytes 20 % (20-55); Metamyelocytes 2 %; Total Cells Counted 100
[2021-09-08 20:49] LABS: INR 1.1; PT Patient Result 12.3 SECS (10.5-12.0)
[2021-09-08] MEDS ORDERED: MAGNESIUM SULF RIDER 2 GM/50 ML PREMIX IV STA (20:56)
[2021-09-08] MEDS ORDERED: LACTATED RINGERS 500 ML IV ONE (21:56)
[2021-09-08 22:42] LABS: Amorphous Crystals,Urine Occasional /HPF (Few); Mucus,Urine Few /LPF (Occasional); RBC,Urine 4 /HPF (0-4)
[2021-09-08 22:44] LABS: Glucose,Urine (UA) 100 mg/dL (Negative); Ketones,Urine Trace mg/dL (Negative); Nitrite,Urine Positive (Negative); Protein,Urine 100 mg/dL (Negative); Urine Appearance Slightly Cloudy (Clear); Urine Color Yellow (Yellow)
[2021-09-08 22:45] LABS: Bilirubin,Urine Negative (Negative); Blood, Urine Trace mg/dL (Negative); Urine Urobilinogen 0.2 eU/dL (<2.0)
[2021-09-08] MEDS ORDERED: MEROPENEM 500 MG in SODIUM CHLORIDE 0.9% 100 ML IV ONE (22:47)
[2021-09-08] MEDS ORDERED: NOREPINEPHRINE 8 MG in SODIUM CHLORIDE 0.9% 242 ML IV PRN (22:52)
[2021-09-08] MEDS ORDERED: SODIUM CHLORIDE 0.9% 2,350 ML IV ONE (22:58)
[2021-09-08] MEDS ORDERED: LACTULOSE 20 GM/30 ML UDCUP PO STA (23:12)
[2021-09-09] MEDS ORDERED: PHENYLEPHRINE DRIP 40 MG/250 ML PREMIX IV ONE (00:11)
[2021-09-09] MEDS ORDERED: RIFAXIMIN 550 MG TABLET PO ONE ×2 (00:23→00:30)
[2021-09-09] MEDS: PHENYLEPHRINE DRIP 40 MG/250 ML PREMIX IV PRN (00:23)
[2021-09-09] MEDS ORDERED: ALBUTEROL 2.5 MG/3 ML NEB RESP TX PRN (00:36)
[2021-09-09] MEDS ORDERED: ONDANSETRON 4 MG/2 ML VIAL IV PRN (00:36)
[2021-09-09] MEDS ORDERED: PHENYLEPHRINE DRIP 40 MG/250 ML PREMIX IV PRN (00:36)
[2021-09-09] MEDS ORDERED: NOREPINEPHRINE 4 MG/4 ML VIAL IV ONE (00:56)
[2021-09-09] MEDS: LACTATED RINGERS 1,000 ML IV SCH ×5 (01:10→21:00)
[2021-09-09] MEDS ORDERED: MAGNESIUM SULF RIDER 4 GM/100 ML PREMIX IV PRN (01:16)
[2021-09-09] MEDS ORDERED: POTASSIUM CHLORIDE 20 MEQ TABLET PO PRN (01:16)
[2021-09-09] MEDS ORDERED: MAGNESIUM SULF RIDER 2 GM/50 ML PREMIX IV PRN (01:16)
[2021-09-09] MEDS: NOREPINEPHRINE 8 MG in SODIUM CHLORIDE 0.9% 242 ML IV PRN ×3 (01:18→23:05)
[2021-09-09] MEDS ORDERED: LEVOFLOXACIN INJ 750 MG/150 ML PREMIX IV ONE (01:40)
[2021-09-09] MEDS ORDERED: DEXTROSE 10% 250 ML BAG IV PRN (02:46)
[2021-09-09] MEDS ORDERED: GLUCAGON 1 MG VIAL IM PRN (02:46)
[2021-09-09] MEDS: INSULIN LISPRO 100 UNIT/ML SUBCUT SCH ×5 (03:12→20:46)
[2021-09-09 04:34] LABS: Basophils # 0.1 10*3/uL (0.0-0.2); Basophils % 0.2 % (0.0-0.8); Hematocrit 29.5 VOL% (42.0-52.0); Hemoglobin 9.6 GM/DL (14.0-18.0); Immature Granulocytes % 1.5 %; Immature Granulocytes Absolute 0.33 #; Lymphocytes # 0.4 10*3/uL (1.4-4.0); Lymphocytes % 1.7 % (21.2-54.2); Mean Corpuscular HGB Conc 32.5 GM/DL (32-36); Mean Platelet Volume 10.5 FL (9.6-12.0); Monocytes # 1.3 10*3/uL (0.11-0.8); Monocytes % 6.1 % (1.7-12.7); Neutrophils % 90.5 % (38.7-73.9); Platelet Count 115 T/CUMM (130-400); Red Blood Count 3.51 MC/CUMM (3.8-5.5); Red Cell Distribution Width 16.3 % (9.3-17.3); White Blood Count 21.9 T/CUMM (4-12)
[2021-09-09 04:40] LABS: INR 1.1; PT Patient Result 12.4 SECS (10.5-12.0)
[2021-09-09 04:58] LABS: Albumin 2.3 G/DL (3.4-5.0); Bilirubin,Total 0.8 MG/DL (0.20-1.00); Calcium 9.2 MG/DL (8.5-10.1); Osmolality,Calculated 272.8 MOS/KG (273-304); Potassium 4.3 MMOL/L (3.5-5.1); Total Protein 6.4 G/DL (6.4-8.2)
[2021-09-09 05:00] LABS: Band Neutrophils 18 % (0-10); Lymphocytes 1 % (20-55); Metamyelocytes 1 %; Total Cells Counted 100
[2021-09-09 05:01] LABS: Hypochromia Slight; Microcytosis 1+
[2021-09-09 05:02] LABS: Ovalocytes Slight; Platelet Estimate Adequate
[2021-09-09] MEDS ORDERED: MEROPENEM 500 MG in SODIUM CHLORIDE 0.9% 100 ML IV SCH (06:00)
[2021-09-09] MEDS ORDERED: INSULIN LISPRO 100 UNIT/ML SUBCUT SCH (07:30)
[2021-09-09] MEDS ORDERED: LACTULOSE 20 GM/30 ML UDCUP PO SCH (09:00)
[2021-09-09] MEDS: LACTULOSE 20 GM/30 ML UDCUP PO SCH ×3 (10:08→20:47)
[2021-09-09] MEDS: RIFAXIMIN 550 MG TABLET PO SCH ×2 (10:09→20:47)
[2021-09-09] MEDS: FOLIC ACID 1 MG TABLET PO SCH ×2 (10:09→20:47)
[2021-09-09] MEDS ORDERED: INSULIN GLARGINE 100 UNIT/ML SUBCUT ONE (10:34)
[2021-09-09 12:58] LABS: Calcium 9.5 MG/DL (8.5-10.1); Osmolality,Calculated 284.7 MOS/KG (273-304); Potassium 4.7 MMOL/L (3.5-5.1)
[2021-09-09] MEDS ORDERED: ZINC OXIDE PASTE 113 GM TUBE TOP PRN (13:23)
[2021-09-09] MEDS: MEROPENEM 500 MG in SODIUM CHLORIDE 0.9% 100 ML IV SCH ×2 (15:52→23:50)
[2021-09-09] MEDS: MORPHINE 2 MG/1 ML SYRINGE IV PRN (18:10)
[2021-09-09] MEDS: INSULIN GLARGINE 100 UNIT/ML SUBCUT SCH (20:47)
[2021-09-09] MEDS: PREGABALIN 100 MG CAPSULE PO SCH (21:06)
[2021-09-10] MEDS: MORPHINE 2 MG/1 ML SYRINGE IV PRN ×4 (00:04→21:40)
[2021-09-10] MEDS: INSULIN LISPRO 100 UNIT/ML SUBCUT SCH ×6 (00:04→21:46)
[2021-09-10 04:31] LABS: Basophils % 0.3 % (0.0-0.8); Eosinophils # 0.3 10*3/uL (0.0-0.87); Eosinophils % 2.8 % (0.00-10.9); Hematocrit 31.3 VOL% (42.0-52.0); Hemoglobin 10.1 GM/DL (14.0-18.0); Immature Granulocytes Absolute 0.11 #; Lymphocytes # 0.6 10*3/uL (1.4-4.0); Lymphocytes % 5.2 % (21.2-54.2); Mean Corpuscular HGB Conc 32.3 GM/DL (32-36); Mean Corpuscular Volume 85.1 FL (87-102); Mean Platelet Volume 10.2 FL (9.6-12.0); Monocytes # 1.5 10*3/uL (0.11-0.8); Monocytes % 13.3 % (1.7-12.7); Neutrophils % 77.4 % (38.7-73.9); Platelet Count 94 T/CUMM (130-400); Red Blood Count 3.68 MC/CUMM (3.8-5.5); Red Cell Distribution Width 16.9 % (9.3-17.3); White Blood Count 10.9 T/CUMM (4-12)
[2021-09-10 04:49] LABS: Albumin 2.2 G/DL (3.4-5.0); Bilirubin,Total 0.5 MG/DL (0.20-1.00); Calcium 9.3 MG/DL (8.5-10.1); Osmolality,Calculated 277.5 MOS/KG (273-304); Potassium 3.9 MMOL/L (3.5-5.1); Total Protein 6.5 G/DL (6.4-8.2)
[2021-09-10 04:59] LABS: Band Neutrophils 9 % (0-10); Eosinophils 1 % (0-10); Hypochromia Slight; INR 1.2; Lymphocytes 2 % (20-55); Microcytosis 1+; Ovalocytes Slight; PT Patient Result 12.6 SECS (10.5-12.0); Total Cells Counted 100
[2021-09-10 05:00] LABS: Platelet Estimate Decreased
[2021-09-10] MEDS: LACTATED RINGERS 1,000 ML IV SCH ×4 (06:00→21:49)
[2021-09-10] MEDS: MEROPENEM 500 MG in SODIUM CHLORIDE 0.9% 100 ML IV SCH ×3 (06:06→23:42)
[2021-09-10] MEDS: oxyCODONE/ACETAMINOPHEN 5-325 MG TABLET PO PRN ×2 (11:00→17:36)
[2021-09-10] MEDS: LACTULOSE 20 GM/30 ML UDCUP PO SCH ×3 (11:24→21:47)
[2021-09-10] MEDS: PREGABALIN 100 MG CAPSULE PO SCH ×2 (11:25→21:48)
[2021-09-10] MEDS: RIFAXIMIN 550 MG TABLET PO SCH ×2 (11:25→21:47)
[2021-09-10] MEDS: FOLIC ACID 1 MG TABLET PO SCH ×2 (11:25→21:47)
[2021-09-10] MEDS: INSULIN GLARGINE 100 UNIT/ML SUBCUT SCH (21:47)
[2021-09-10] MEDS: NOREPINEPHRINE 8 MG in SODIUM CHLORIDE 0.9% 242 ML IV PRN (22:18)
[2021-09-11] MEDS: INSULIN LISPRO 100 UNIT/ML SUBCUT SCH ×6 (00:44→21:20)
[2021-09-11 05:05] LABS: Basophils % 0.5 % (0.0-0.8); Eosinophils # 0.2 10*3/uL (0.0-0.87); Eosinophils % 4.9 % (0.00-10.9); Hematocrit 29.1 VOL% (42.0-52.0); Hemoglobin 9.4 GM/DL (14.0-18.0); Immature Granulocytes % 0.5 %; Immature Granulocytes Absolute 0.02 #; Lymphocytes # 0.4 10*3/uL (1.4-4.0); Lymphocytes % 10.8 % (21.2-54.2); Mean Corpuscular HGB Conc 32.3 GM/DL (32-36); Mean Corpuscular Volume 85.3 FL (87-102); Mean Platelet Volume 9.5 FL (9.6-12.0); Monocytes # 0.7 10*3/uL (0.11-0.8); Monocytes % 16.7 % (1.7-12.7); Neutrophils % 66.6 % (38.7-73.9); Platelet Count 84 T/CUMM (130-400); Red Blood Count 3.41 MC/CUMM (3.8-5.5); Red Cell Distribution Width 17.3 % (9.3-17.3); White Blood Count 3.9 T/CUMM (4-12)
[2021-09-11 05:29] LABS: Bilirubin,Total 0.4 MG/DL (0.20-1.00); Calcium 8.6 MG/DL (8.5-10.1); Potassium 4.2 MMOL/L (3.5-5.1); Total Protein 5.8 G/DL (6.4-8.2)
[2021-09-11 05:37] LABS: Eosinophils 12 % (0-10); Hypochromia Slight; Lymphocytes 17 % (20-55); Platelet Estimate Decreased; Total Cells Counted 100
[2021-09-11 05:38] LABS: Microcytosis Slight
[2021-09-11] MEDS: LACTATED RINGERS 1,000 ML IV SCH ×3 (07:17→16:49)
[2021-09-11] MEDS: MEROPENEM 500 MG in SODIUM CHLORIDE 0.9% 100 ML IV SCH (07:58)
[2021-09-11] MEDS: FOLIC ACID 1 MG TABLET PO SCH ×2 (08:30→21:20)
[2021-09-11] MEDS: LACTULOSE 20 GM/30 ML UDCUP PO SCH ×3 (08:30→21:19)
[2021-09-11] MEDS: RIFAXIMIN 550 MG TABLET PO SCH ×2 (08:31→21:20)
[2021-09-11] MEDS: PREGABALIN 100 MG CAPSULE PO SCH ×2 (08:31→21:19)
[2021-09-11] MEDS: MORPHINE 2 MG/1 ML SYRINGE IV PRN ×2 (12:08→16:55)
[2021-09-11] MEDS: oxyCODONE/ACETAMINOPHEN 5-325 MG TABLET PO PRN (15:26)
[2021-09-11] MEDS ORDERED: PREGABALIN 200 MG PO SCH (21:00)
[2021-09-11] MEDS: INSULIN GLARGINE 100 UNIT/ML SUBCUT SCH (21:20)
[2021-09-12] MEDS: MORPHINE 2 MG/1 ML SYRINGE IV PRN ×3 (00:53→23:43)
[2021-09-12] MEDS: INSULIN LISPRO 100 UNIT/ML SUBCUT SCH ×6 (00:56→20:58)
[2021-09-12] MEDS: LACTATED RINGERS 1,000 ML IV SCH ×3 (00:58→20:57)
[2021-09-12 05:29] LABS: Basophils % 0.8 % (0.0-0.8); Eosinophils # 0.2 10*3/uL (0.0-0.87); Eosinophils % 4.8 % (0.00-10.9); Hematocrit 26.6 VOL% (42.0-52.0); Hemoglobin 8.6 GM/DL (14.0-18.0); Immature Granulocytes % 0.5 %; Immature Granulocytes Absolute 0.02 #; Lymphocytes # 0.7 10*3/uL (1.4-4.0); Lymphocytes % 18.4 % (21.2-54.2); Mean Corpuscular HGB Conc 32.3 GM/DL (32-36); Mean Corpuscular Volume 84.4 FL (87-102); Mean Platelet Volume 9.8 FL (9.6-12.0); Monocytes # 0.6 10*3/uL (0.11-0.8); Monocytes % 15.4 % (1.7-12.7); Neutrophils % 60.1 % (38.7-73.9); Red Blood Count 3.15 MC/CUMM (3.8-5.5); Red Cell Distribution Width 16.6 % (9.3-17.3); White Blood Count 3.8 T/CUMM (4-12)
[2021-09-12 05:34] LABS: Platelet Count 59 T/CUMM (130-400)
[2021-09-12 05:52] LABS: Eosinophils 4 % (0-10); Hypochromia 1+; Lymphocytes 13 % (20-55); Microcytosis 1+; Platelet Estimate Decreased; Total Cells Counted 100
[2021-09-12] MEDS: MULTIVITAMIN (CENTRUM) TABLET PO SCH (08:56)
[2021-09-12] MEDS: PREGABALIN 100 MG CAPSULE PO SCH ×2 (08:56→21:00)
[2021-09-12] MEDS: CALCIUM (CARBONATE) 500 MG TABLET PO SCH (08:56)
[2021-09-12] MEDS: FOLIC ACID 1 MG TABLET PO SCH ×2 (08:56→21:01)
[2021-09-12] MEDS: CYANOCOBALAMIN 500 MCG TABLET PO SCH (08:56)
[2021-09-12] MEDS: LACTULOSE 20 GM/30 ML UDCUP PO SCH ×3 (08:56→21:00)
[2021-09-12] MEDS: sitaGLIPtin 100 MG TABLET PO SCH (08:56)
[2021-09-12] MEDS: SERTRALINE 100 MG TABLET PO SCH (08:56)
[2021-09-12] MEDS: RIFAXIMIN 550 MG TABLET PO SCH ×2 (08:56→21:00)
[2021-09-12 09:02] LABS: % Iron Saturation 18.3 % (18-50)
[2021-09-12 09:09] LABS: Folate 18.48 NG/ML (5.38-24.0)
[2021-09-12 12:16] LABS: Albumin 2.1 G/DL (3.4-5.0); Bilirubin,Total 0.4 MG/DL (0.20-1.00); Calcium 8.4 MG/DL (8.5-10.1); Osmolality,Calculated 275.7 MOS/KG (273-304); Potassium 4.2 MMOL/L (3.5-5.1); Total Protein 5.6 G/DL (6.4-8.2)
[2021-09-12] MEDS: oxyCODONE/ACETAMINOPHEN 5-325 MG TABLET PO PRN ×2 (13:23→21:05)
[2021-09-12] MEDS: INSULIN GLARGINE 100 UNIT/ML SUBCUT SCH (20:58)
[2021-09-13] MEDS: INSULIN LISPRO 100 UNIT/ML SUBCUT SCH ×6 (04:00→20:39)
[2021-09-13 04:09] LABS: Basophils % 0.7 % (0.0-0.8); Eosinophils # 0.2 10*3/uL (0.0-0.87); Eosinophils % 4.3 % (0.00-10.9); Hematocrit 26.4 VOL% (42.0-52.0); Hemoglobin 8.7 GM/DL (14.0-18.0); Immature Granulocytes % 0.7 %; Immature Granulocytes Absolute 0.03 #; Lymphocytes # 0.7 10*3/uL (1.4-4.0); Lymphocytes % 17.4 % (21.2-54.2); Mean Corpuscular Volume 84.1 FL (87-102); Mean Platelet Volume 10.1 FL (9.6-12.0); Monocytes # 0.6 10*3/uL (0.11-0.8); Monocytes % 14.5 % (1.7-12.7); Neutrophils % 62.4 % (38.7-73.9); Red Blood Count 3.14 MC/CUMM (3.8-5.5); Red Cell Distribution Width 16.3 % (9.3-17.3); White Blood Count 4.1 T/CUMM (4-12)
[2021-09-13 04:18] LABS: Platelet Count 57 T/CUMM (130-400)
[2021-09-13 04:31] LABS: Bilirubin,Total 0.5 MG/DL (0.20-1.00); Calcium 8.6 MG/DL (8.5-10.1); Osmolality,Calculated 271.1 MOS/KG (273-304); Potassium 4.1 MMOL/L (3.5-5.1); Total Protein 5.9 G/DL (6.4-8.2)
[2021-09-13] MEDS: PREGABALIN 100 MG CAPSULE PO SCH ×3 (08:29→20:49)
[2021-09-13] MEDS: LACTULOSE 20 GM/30 ML UDCUP PO SCH ×5 (08:29→20:49)
[2021-09-13] MEDS: SERTRALINE 100 MG TABLET PO SCH (08:29)
[2021-09-13] MEDS: FOLIC ACID 1 MG TABLET PO SCH ×2 (08:30→20:51)
[2021-09-13] MEDS: sitaGLIPtin 100 MG TABLET PO SCH (08:30)
[2021-09-13] MEDS: oxyCODONE/ACETAMINOPHEN 5-325 MG TABLET PO PRN ×2 (08:30→19:29)
[2021-09-13] MEDS: FERROUS SULFATE 325 MG TABLET PO SCH ×2 (08:30→16:22)
[2021-09-13] MEDS: MULTIVITAMIN (CENTRUM) TABLET PO SCH (08:30)
[2021-09-13] MEDS: CYANOCOBALAMIN 500 MCG TABLET PO SCH (08:30)
[2021-09-13] MEDS: CALCIUM (CARBONATE) 500 MG TABLET PO SCH (08:30)
[2021-09-13] MEDS: RIFAXIMIN 550 MG TABLET PO SCH ×3 (08:31→20:49)
[2021-09-13] MEDS: LACTATED RINGERS 1,000 ML IV SCH ×2 (09:00)
[2021-09-13] MEDS: MORPHINE 2 MG/1 ML SYRINGE IV PRN (12:35)
[2021-09-13] MEDS: INSULIN GLARGINE 100 UNIT/ML SUBCUT SCH (20:39)
[2021-09-14] MEDS: INSULIN LISPRO 100 UNIT/ML SUBCUT SCH ×4 (00:52→12:13)
[2021-09-14 05:28] LABS: Basophils % 0.7 % (0.0-0.8); Eosinophils # 0.2 10*3/uL (0.0-0.87); Eosinophils % 5.1 % (0.00-10.9); Hematocrit 28.7 VOL% (42.0-52.0); Immature Granulocytes % 0.5 %; Immature Granulocytes Absolute 0.02 #; Lymphocytes # 0.7 10*3/uL (1.4-4.0); Lymphocytes % 18.1 % (21.2-54.2); Mean Corpuscular HGB Conc 31.4 GM/DL (32-36); Mean Corpuscular Volume 85.2 FL (87-102); Monocytes # 0.8 10*3/uL (0.11-0.8); Monocytes % 18.6 % (1.7-12.7); Platelet Count 69 T/CUMM (130-400); Red Blood Count 3.37 MC/CUMM (3.8-5.5); Red Cell Distribution Width 16.6 % (9.3-17.3); White Blood Count 4.1 T/CUMM (4-12)
[2021-09-14 05:46] LABS: Albumin 2.2 G/DL (3.4-5.0); Bilirubin,Total 0.5 MG/DL (0.20-1.00); Calcium 9.5 MG/DL (8.5-10.1); Osmolality,Calculated 272.7 MOS/KG (273-304); Potassium 4.7 MMOL/L (3.5-5.1); Total Protein 6.4 G/DL (6.4-8.2)
[2021-09-14 05:54] LABS: Band Neutrophils 1 % (0-10); Eosinophils 6 % (0-10); Lymphocytes 15 % (20-55); Total Cells Counted 100
[2021-09-14 05:55] LABS: Hypochromia Slight; Microcytosis 1+
[2021-09-14 05:56] LABS: Platelet Estimate Decreased
[2021-09-14] MEDS: LACTULOSE 20 GM/30 ML UDCUP PO SCH ×2 (08:48→12:15)
[2021-09-14] MEDS: CYANOCOBALAMIN 500 MCG TABLET PO SCH (08:49)
[2021-09-14] MEDS: FOLIC ACID 1 MG TABLET PO SCH (08:50)
[2021-09-14] MEDS: sitaGLIPtin 100 MG TABLET PO SCH (08:50)
[2021-09-14] MEDS: RIFAXIMIN 550 MG TABLET PO SCH (08:50)
[2021-09-14] MEDS: PREGABALIN 100 MG CAPSULE PO SCH (08:50)
[2021-09-14] MEDS: CALCIUM (CARBONATE) 500 MG TABLET PO SCH (08:50)
[2021-09-14] MEDS: FERROUS SULFATE 325 MG TABLET PO SCH (08:50)
[2021-09-14] MEDS: oxyCODONE/ACETAMINOPHEN 5-325 MG TABLET PO PRN (08:51)
[2021-09-14] MEDS: SERTRALINE 100 MG TABLET PO SCH (08:51)
[2021-09-14] MEDS: MULTIVITAMIN (CENTRUM) TABLET PO SCH (08:55)
[2021-09-14] MEDS ORDERED: MAGNESIUM SULF RIDER 2 GM/50 ML PREMIX IV ONE (09:00)
[2021-09-14] MEDS: MORPHINE 2 MG/1 ML SYRINGE IV PRN (12:17)
[2021-09-14 12:26] VITALS: BP 107/58
[2021-09-18] MEDS ORDERED: ERGOCALCIFEROL 50,000 UNIT CAPSULE PO SCH (09:00)
== END 2021-09-14 14:20 | disposition home or self-care (01) | DRG 871 ==
LOC: N.ED 18:52 → N.ICU 23:40 → SUATTDRO 23:40 → N.ICU 09-09 00:53 → N.5E 09-11 15:12
PROVIDERS: ADMIT Internal Medicine; ATTEND Internal Medicine

== ENCOUNTER 2021-09-23 10:24 | Observation (INO) ==
[2021-09-23] MEDS ORDERED: MORPHINE 2 MG/1 ML SYRINGE IV STA (11:51)
[2021-09-23] MEDS ORDERED: ONDANSETRON 4 MG/2 ML VIAL IV STA (11:51)
[2021-09-23] MEDS ORDERED: SODIUM CHLORIDE 0.9% 1,000 ML IV STA ×2 (11:51→15:19)
[2021-09-23 12:57] LABS: Basophils # 0.1 10*3/uL (0.0-0.2); Basophils % 1.4 % (0.0-0.8); Eosinophils # 0.1 10*3/uL (0.0-0.87); Eosinophils % 3.1 % (0.00-10.9); Hematocrit 28.9 VOL% (42.0-52.0); Hemoglobin 9.3 GM/DL (14.0-18.0); Immature Granulocytes % 0.5 %; Immature Granulocytes Absolute 0.02 #; Lymphocytes # 0.6 10*3/uL (1.4-4.0); Mean Corpuscular HGB Conc 32.2 GM/DL (32-36); Mean Corpuscular Volume 84.5 FL (87-102); Mean Platelet Volume 9.7 FL (9.6-12.0); Monocytes # 0.8 10*3/uL (0.11-0.8); Monocytes % 17.6 % (1.7-12.7); Neutrophils % 62.4 % (38.7-73.9); Platelet Count 154 T/CUMM (130-400); Red Blood Count 3.42 MC/CUMM (3.8-5.5); Red Cell Distribution Width 16.1 % (9.3-17.3); White Blood Count 4.3 T/CUMM (4-12)
[2021-09-23 13:16] LABS: Albumin 2.8 G/DL (3.4-5.0); Bilirubin,Total 0.5 MG/DL (0.20-1.00); Calcium 9.4 MG/DL (8.5-10.1); Osmolality,Calculated 266.4 MOS/KG (273-304); Potassium 4.2 MMOL/L (3.5-5.1); Total Protein 7.2 G/DL (6.4-8.2)
[2021-09-23 13:23] LABS: Eosinophils 3 % (0-10); Lymphocytes 14 % (20-55); Total Cells Counted 100
[2021-09-23 13:24] LABS: Anisocytosis Slight; Elliptocytes Few; Hypochromia 1+
[2021-09-23 13:55] LABS: Lactic Acid 0.9 MMOL/L (0.4-2.0)
[2021-09-23 13:58] LABS: Bilirubin,Urine Negative (Negative); Blood, Urine Trace mg/dL (Negative); Glucose,Urine (UA) Negative (Negative); Ketones,Urine Negative (Negative); Nitrite,Urine Positive (Negative); Protein,Urine Negative (Negative); Urine Appearance Clear (Clear); Urine Color Yellow (Yellow); Urine Specific Gravity 1.015 (1.001-1.035); Urine Urobilinogen 0.2 eU/dL (<2.0)
[2021-09-23 14:01] LABS: Amorphous Crystals,Urine Occasional /HPF (Few); Hyaline Casts,Urine 1 /LPF (0-3); Mucus,Urine Occasional /LPF (Occasional); RBC,Urine 1 /HPF (0-4)
[2021-09-23 14:28] LABS: Barbiturates Screen,Urine Negative (Negative); Benzodiazepines Screen,Urine Negative (Negative); Cannabinoid Screen,Urine Negative (Negative); Opiate Screen,Urine Negative (Negative); Phencyclidine Screen,Urine Negative (Negative)
[2021-09-23] MEDS ORDERED: LACTULOSE 20 GM/30 ML UDCUP PO STA (16:10)
[2021-09-23] MEDS ORDERED: ACETAMINOPHEN 325 MG TABLET PO PRN (16:24)
[2021-09-23] MEDS ORDERED: LACTULOSE 20 GM/30 ML UDCUP PO PRN (16:24)
[2021-09-23] MEDS ORDERED: ONDANSETRON 4 MG/2 ML VIAL IV PRN (16:24)
[2021-09-23] MEDS ORDERED: GLUCAGON 1 MG VIAL IM PRN (16:24)
[2021-09-23] MEDS ORDERED: INSULIN GLARGINE 100 UNIT/ML SUBCUT PRN (16:28)
[2021-09-23] MEDS ORDERED: DEXTROSE 10% 250 ML BAG IV PRN (16:44)
[2021-09-23] MEDS: INSULIN LISPRO 100 UNIT/ML SUBCUT SCH ×2 (18:51→22:33)
[2021-09-23] MEDS: FERROUS SULFATE 325 MG TABLET PO SCH (19:25)
[2021-09-23] MEDS: RIFAXIMIN 550 MG TABLET PO SCH (21:18)
[2021-09-23] MEDS: PREGABALIN 100 MG CAPSULE PO SCH (21:18)
[2021-09-23] MEDS: CALCIUM (CARBONATE) 500 MG TABLET PO SCH (21:18)
[2021-09-24 05:05] LABS: Basophils # 0.1 10*3/uL (0.0-0.2); Basophils % 1.5 % (0.0-0.8); Eosinophils # 0.1 10*3/uL (0.0-0.87); Eosinophils % 4.1 % (0.00-10.9); Hematocrit 29.5 VOL% (42.0-52.0); Hemoglobin 9.3 GM/DL (14.0-18.0); Immature Granulocytes % 0.3 %; Immature Granulocytes Absolute 0.01 #; Lymphocytes # 0.7 10*3/uL (1.4-4.0); Mean Corpuscular HGB Conc 31.5 GM/DL (32-36); Mean Corpuscular Volume 86.8 FL (87-102); Mean Platelet Volume 9.7 FL (9.6-12.0); Monocytes # 0.6 10*3/uL (0.11-0.8); Monocytes % 17.9 % (1.7-12.7); Neutrophils % 56.2 % (38.7-73.9); Platelet Count 141 T/CUMM (130-400); White Blood Count 3.4 T/CUMM (4-12)
[2021-09-24 05:22] LABS: Calcium 8.6 MG/DL (8.5-10.1); Osmolality,Calculated 275.5 MOS/KG (273-304); Potassium 4.1 MMOL/L (3.5-5.1)
[2021-09-24 06:33] LABS: Eosinophils 3 % (0-10); Lymphocytes 21 % (20-55); Platelet Estimate Adequate; Total Cells Counted 100
[2021-09-24] MEDS: INSULIN LISPRO 100 UNIT/ML SUBCUT SCH ×2 (07:45→11:37)
[2021-09-24] MEDS ORDERED: FOLIC ACID 1 MG TABLET PO SCH (09:00)
[2021-09-24] MEDS ORDERED: MULTIVITAMIN (CENTRUM) TABLET PO SCH (09:00)
[2021-09-24] MEDS ORDERED: CYANOCOBALAMIN 500 MCG TABLET PO SCH (09:00)
[2021-09-24] MEDS ORDERED: THIAMINE 100 MG TABLET PO SCH (09:00)
[2021-09-24] MEDS ORDERED: SERTRALINE 100 MG TABLET PO SCH (09:00)
[2021-09-24] MEDS: CALCIUM (CARBONATE) 500 MG TABLET PO SCH (09:40)
[2021-09-24] MEDS: RIFAXIMIN 550 MG TABLET PO SCH (09:41)
[2021-09-24] MEDS: PREGABALIN 100 MG CAPSULE PO SCH (09:41)
[2021-09-24] MEDS: FERROUS SULFATE 325 MG TABLET PO SCH (09:41)
[2021-09-24 12:26] VITALS: BP 101/54
[2021-09-26] MEDS ORDERED: ERGOCALCIFEROL 50,000 UNIT CAPSULE PO SCH (09:00)
== END 2021-09-24 13:34 | disposition home health service (06) ==
LOC: N.EDINP 10:24 → N.ED 10:24 → N.3E 18:40
PROVIDERS: ADMIT Internal Medicine; ATTEND Internal Medicine

== ENCOUNTER 2022-01-17 14:02 | Inpatient (IN) ==
[2022-01-17] MEDS ORDERED: SODIUM CHLORIDE 0.9% 1,000 ML IV STA (14:21)
[2022-01-17] MEDS ORDERED: INSULIN LISPRO 100 UNIT/ML SUBCUT STA (14:22)
[2022-01-17 14:51] LABS: Basophils % 0.2 % (0.0-0.8); Eosinophils # 0.1 10*3/uL (0.0-0.87); Eosinophils % 0.4 % (0.00-10.9); Hematocrit 25.5 VOL% (42.0-52.0); Hemoglobin 7.9 GM/DL (14.0-18.0); Immature Granulocytes % 0.6 %; Immature Granulocytes Absolute 0.09 #; Lymphocytes # 0.6 10*3/uL (1.4-4.0); Lymphocytes % 3.8 % (21.2-54.2); Mean Corpuscular Volume 81.5 FL (87-102); Mean Platelet Volume 9.8 FL (9.6-12.0); Monocytes # 1.2 10*3/uL (0.11-0.8); Monocytes % 7.9 % (1.7-12.7); Neutrophils % 87.1 % (38.7-73.9); Platelet Count 147 T/CUMM (130-400); Red Blood Count 3.13 MC/CUMM (3.8-5.5); Red Cell Distribution Width 16.9 % (9.3-17.3); White Blood Count 14.9 T/CUMM (4-12)
[2022-01-17 15:05] LABS: INR 1.2; PT Patient Result 13.5 SECS (10.1-12.1); Partial Thromboplastin Time 29.9 SECS (23.7-32.9)
[2022-01-17 15:08] LABS: Albumin 1.7 G/DL (3.4-5.0); Bilirubin,Total 0.7 MG/DL (0.20-1.00); Calcium 9.7 MG/DL (8.5-10.1); Osmolality,Calculated 279.4 MOS/KG (273-304); Potassium 4.6 MMOL/L (3.5-5.1); Total Protein 5.6 G/DL (6.4-8.2)
[2022-01-17 15:11] LABS: Anisocytosis 1+; Band Neutrophils 14 % (0-10); Hypochromia 1+; Lymphocytes 2 % (20-55); Platelet Estimate Decreased; Total Cells Counted 100
[2022-01-17] MEDS ORDERED: GLUCAGON 1 MG VIAL IM PRN (15:49)
[2022-01-17] MEDS ORDERED: ONDANSETRON 4 MG/2 ML VIAL IV PRN (15:49)
[2022-01-17] MEDS ORDERED: DEXTROSE 10% 250 ML BAG IV PRN (15:54)
[2022-01-17 15:56] LABS: Bilirubin,Urine Negative (Negative); Blood, Urine Small mg/dL (Negative); Glucose,Urine (UA) 150 mg/dL (Negative); Ketones,Urine 5 mg/dL (Negative); Nitrite,Urine Positive (Negative); Protein,Urine 30 mg/dL (Negative); RBC,Urine 4 /HPF (0-4); Urine Appearance Slightly Hazy (Clear); Urine Color Yellow (Yellow); Urine Specific Gravity 1.021 (1.001-1.035); Urine Urobilinogen < 2.0 eU/dL (<2.0)
[2022-01-17] MEDS: INSULIN REGULAR 100 UNIT/ML SUBCUT SCH ×2 (18:17→22:45)
[2022-01-17] MEDS: LACTULOSE 20 GM/30 ML UDCUP PO SCH ×2 (18:18)
[2022-01-17] MEDS: cefTRIAXone 1,000 MG in SODIUM CHLORIDE 0.9% 100 ML IV SCH (18:18)
[2022-01-17] MEDS: CALCIUM (CARBONATE) 500 MG TABLET PO SCH (22:10)
[2022-01-17] MEDS: RIFAXIMIN 550 MG TABLET PO SCH (22:10)
[2022-01-17] MEDS: FOLIC ACID 1 MG TABLET PO SCH (22:10)
[2022-01-17] MEDS: SERTRALINE 100 MG TABLET PO SCH (22:10)
[2022-01-18] MEDS: LACTULOSE 20 GM/30 ML UDCUP PO SCH ×5 (00:17→23:17)
[2022-01-18 05:42] LABS: Basophils % 0.2 % (0.0-0.8); Eosinophils # 0.1 10*3/uL (0.0-0.87); Eosinophils % 0.9 % (0.00-10.9); Hematocrit 23.9 VOL% (42.0-52.0); Hemoglobin 7.4 GM/DL (14.0-18.0); Immature Granulocytes % 0.5 %; Immature Granulocytes Absolute 0.06 #; Lymphocytes # 1.3 10*3/uL (1.4-4.0); Lymphocytes % 11.5 % (21.2-54.2); Mean Corpuscular Volume 80.5 FL (87-102); Mean Platelet Volume 9.6 FL (9.6-12.0); Monocytes % 9.2 % (1.7-12.7); Neutrophils % 77.7 % (38.7-73.9); Platelet Count 156 T/CUMM (130-400); Red Blood Count 2.97 MC/CUMM (3.8-5.5); Red Cell Distribution Width 17.1 % (9.3-17.3); White Blood Count 11.3 T/CUMM (4-12)
[2022-01-18 06:01] LABS: Albumin 1.6 G/DL (3.4-5.0); Bilirubin,Total 0.8 MG/DL (0.20-1.00); Calcium 9.7 MG/DL (8.5-10.1); Osmolality,Calculated 273.5 MOS/KG (273-304); Total Protein 5.5 G/DL (6.4-8.2)
[2022-01-18 06:05] LABS: Hypochromia Slight; Lymphocytes 6 % (20-55); Microcytosis Slight; Platelet Estimate Adequate; Total Cells Counted 100
[2022-01-18] MEDS: INSULIN REGULAR 100 UNIT/ML SUBCUT SCH ×4 (07:38→20:46)
[2022-01-18] MEDS: PREGABALIN 100 MG CAPSULE PO PRN (09:12)
[2022-01-18] MEDS: CALCIUM (CARBONATE) 500 MG TABLET PO SCH ×2 (09:12→20:46)
[2022-01-18] MEDS: THIAMINE 100 MG TABLET PO SCH (09:12)
[2022-01-18] MEDS: PANTOPRAZOLE 40 MG TABLET PO SCH (09:12)
[2022-01-18] MEDS: CYANOCOBALAMIN 500 MCG TABLET PO SCH (09:12)
[2022-01-18] MEDS: MULTIVITAMIN (CENTRUM) TABLET PO SCH (09:13)
[2022-01-18] MEDS: RIFAXIMIN 550 MG TABLET PO SCH ×2 (09:13→20:46)
[2022-01-18] MEDS: SERTRALINE 100 MG TABLET PO SCH ×2 (09:13→20:46)
[2022-01-18] MEDS: FOLIC ACID 1 MG TABLET PO SCH ×2 (09:13→20:46)
[2022-01-18] MEDS: sitaGLIPtin 100 MG TABLET PO SCH (09:13)
[2022-01-18] MEDS ORDERED: SODIUM CHLORIDE 0.9% 1,000 ML IV PRN (10:24)
[2022-01-18 11:04] LABS: % Iron Saturation 10.2 % (18-50); Ferritin 307.9 ng/mL (26-388); Folate 10.95 NG/ML (5.38-24.0); Vitamin B12 > 2000 PG/ML (211-911)
[2022-01-18] MEDS: INSULIN GLARGINE 100 UNIT/ML SUBCUT SCH (12:11)
[2022-01-18] MEDS ORDERED: ZINC OXIDE PASTE 113 GM TUBE TOP PRN (14:43)
[2022-01-18] MEDS ORDERED: TUBERCULIN SKIN TEST 0.1 ML SYRINGE INTRADERM ONE (15:00)
[2022-01-18] MEDS: ACETAMINOPHEN 500 MG TABLET PO PRN (16:50)
[2022-01-18] MEDS: cefTRIAXone 1,000 MG in SODIUM CHLORIDE 0.9% 100 ML IV SCH (16:51)
[2022-01-19 05:34] LABS: Basophils % 0.3 % (0.0-0.8); Eosinophils # 0.1 10*3/uL (0.0-0.87); Eosinophils % 1.4 % (0.00-10.9); Hematocrit 26.2 VOL% (42.0-52.0); Hemoglobin 8.2 GM/DL (14.0-18.0); Immature Granulocytes % 0.6 %; Immature Granulocytes Absolute 0.04 #; Lymphocytes # 0.6 10*3/uL (1.4-4.0); Lymphocytes % 8.3 % (21.2-54.2); Mean Corpuscular HGB Conc 31.3 GM/DL (32-36); Mean Corpuscular Volume 81.4 FL (87-102); Mean Platelet Volume 9.7 FL (9.6-12.0); Monocytes # 1.1 10*3/uL (0.11-0.8); Monocytes % 15.4 % (1.7-12.7); Platelet Count 160 T/CUMM (130-400); Red Blood Count 3.22 MC/CUMM (3.8-5.5); Red Cell Distribution Width 16.9 % (9.3-17.3); White Blood Count 7.2 T/CUMM (4-12)
[2022-01-19 05:47] LABS: Osmolality,Calculated 266.5 MOS/KG (273-304); Potassium 3.8 MMOL/L (3.5-5.1)
[2022-01-19] MEDS: LACTULOSE 20 GM/30 ML UDCUP PO SCH ×2 (06:08→12:37)
[2022-01-19] MEDS ORDERED: MAGNESIUM SULF RIDER 4 GM/100 ML PREMIX IV PRN (08:03)
[2022-01-19] MEDS ORDERED: MAGNESIUM SULF RIDER 2 GM/50 ML PREMIX IV PRN (08:03)
[2022-01-19] MEDS: ACETAMINOPHEN 500 MG TABLET PO PRN (08:34)
[2022-01-19] MEDS: THIAMINE 100 MG TABLET PO SCH (08:35)
[2022-01-19] MEDS: MULTIVITAMIN (CENTRUM) TABLET PO SCH (08:35)
[2022-01-19] MEDS: sitaGLIPtin 100 MG TABLET PO SCH (08:35)
[2022-01-19] MEDS: FOLIC ACID 1 MG TABLET PO SCH (08:35)
[2022-01-19] MEDS: SERTRALINE 100 MG TABLET PO SCH (08:35)
[2022-01-19] MEDS: PANTOPRAZOLE 40 MG TABLET PO SCH (08:35)
[2022-01-19] MEDS: CALCIUM (CARBONATE) 500 MG TABLET PO SCH (08:35)
[2022-01-19] MEDS: PREGABALIN 100 MG CAPSULE PO PRN (08:35)
[2022-01-19] MEDS: RIFAXIMIN 550 MG TABLET PO SCH (08:35)
[2022-01-19] MEDS: CYANOCOBALAMIN 500 MCG TABLET PO SCH (08:35)
[2022-01-19] MEDS: INSULIN GLARGINE 100 UNIT/ML SUBCUT SCH (08:36)
[2022-01-19] MEDS: INSULIN REGULAR 100 UNIT/ML SUBCUT SCH ×2 (08:36→12:37)
[2022-01-19 11:04] VITALS: BP 109/53
[2022-01-23] MEDS ORDERED: ERGOCALCIFEROL 50,000 UNIT CAPSULE PO SCH (09:00)
== END 2022-01-19 14:00 | disposition home health service (06) | DRG 811 ==
LOC: N.EDINP 14:02 → N.ED 14:02 → SUATTDRO 15:49 → N.3E 16:38 → SUATTDRO 01-18 10:04
PROVIDERS: ADMIT Internal Medicine; ATTEND Internal Medicine

== ENCOUNTER 2022-01-21 11:13 | Inpatient (IN) ==
[2022-01-21] MEDS ORDERED: ONDANSETRON 4 MG/2 ML VIAL IV STA (12:50)
[2022-01-21 12:51] LABS: Basophils % 0.4 % (0.0-0.8); Eosinophils # 0.1 10*3/uL (0.0-0.87); Eosinophils % 1.9 % (0.00-10.9); Hematocrit 26.2 VOL% (42.0-52.0); Hemoglobin 7.9 GM/DL (14.0-18.0); Immature Granulocytes % 0.7 %; Immature Granulocytes Absolute 0.05 #; Lymphocytes # 0.6 10*3/uL (1.4-4.0); Lymphocytes % 7.7 % (21.2-54.2); Mean Corpuscular HGB Conc 30.2 GM/DL (32-36); Mean Corpuscular Volume 84.5 FL (87-102); Mean Platelet Volume 9.5 FL (9.6-12.0); Monocytes # 0.9 10*3/uL (0.11-0.8); Monocytes % 12.3 % (1.7-12.7); Platelet Count 154 T/CUMM (130-400); Red Cell Distribution Width 17.7 % (9.3-17.3); White Blood Count 7.3 T/CUMM (4-12)
[2022-01-21] MEDS ORDERED: HYDROmorphone 1 MG/1 ML SYRINGE IV STA (12:51)
[2022-01-21 13:26] LABS: Albumin 1.6 G/DL (3.4-5.0); Bilirubin,Total 0.7 MG/DL (0.20-1.00); Calcium 8.5 MG/DL (8.5-10.1); Osmolality,Calculated 271.5 MOS/KG (273-304); Potassium 4.1 MMOL/L (3.5-5.1)
[2022-01-21 13:45] LABS: Band Neutrophils 3 % (0-10); Eosinophils 4 % (0-10); Lymphocytes 5 % (20-55); Metamyelocytes 1 %; Total Cells Counted 100
[2022-01-21 13:46] LABS: Anisocytosis 1+; Atypical Lymphocytes S; Hypochromia 1+; Microcytosis 1+; Platelet Estimate Adequate; Polychromasia Slight
[2022-01-21] MEDS ORDERED: PIPERACILLIN/TAZOBACTAM 3,375 MG in SODIUM CHLORIDE 0.9% 100 ML IV STA (15:18)
[2022-01-21] MEDS ORDERED: ONDANSETRON 4 MG/2 ML VIAL IV PRN ×2 (15:36→16:11)
[2022-01-21] MEDS ORDERED: ACETAMINOPHEN 325 MG TABLET PO PRN (15:36)
[2022-01-21] MEDS ORDERED: MORPHINE 2 MG/1 ML SYRINGE IV PRN (16:11)
[2022-01-21] MEDS: LACTULOSE 20 GM/30 ML UDCUP PO SCH ×2 (17:40→21:01)
[2022-01-21] MEDS: LACTATED RINGERS 1,000 ML IV SCH (17:40)
[2022-01-21] MEDS: RIFAXIMIN 550 MG TABLET PO SCH (21:01)
[2022-01-22] MEDS: PIPERACILLIN/TAZOBACTAM 3,375 MG in SODIUM CHLORIDE 0.9% 100 ML IV SCH ×4 (00:10→23:43)
[2022-01-22] MEDS: HYDROmorphone 1 MG/1 ML SYRINGE IV PRN ×3 (01:30→23:43)
[2022-01-22 05:46] LABS: Basophils % 0.4 % (0.0-0.8); Eosinophils # 0.1 10*3/uL (0.0-0.87); Eosinophils % 1.3 % (0.00-10.9); Hematocrit 25.2 VOL% (42.0-52.0); Hemoglobin 7.7 GM/DL (14.0-18.0); Immature Granulocytes % 0.7 %; Immature Granulocytes Absolute 0.05 #; Lymphocytes # 0.5 10*3/uL (1.4-4.0); Lymphocytes % 6.7 % (21.2-54.2); Mean Corpuscular HGB Conc 30.6 GM/DL (32-36); Mean Platelet Volume 9.9 FL (9.6-12.0); Monocytes # 1.1 10*3/uL (0.11-0.8); Monocytes % 14.3 % (1.7-12.7); NRBC # 0.02 10*3/uL; Neutrophils % 76.6 % (38.7-73.9); Platelet Count 163 T/CUMM (130-400); Red Cell Distribution Width 17.6 % (9.3-17.3); White Blood Count 7.5 T/CUMM (4-12)
[2022-01-22 06:17] LABS: Calcium 8.5 MG/DL (8.5-10.1); Osmolality,Calculated 273.2 MOS/KG (273-304); Potassium 4.1 MMOL/L (3.5-5.1)
[2022-01-22 07:05] LABS: Band Neutrophils 1 % (0-10); Hypochromia 1+; Lymphocytes 8 % (20-55); Microcytosis 1+; Platelet Estimate Adequate; Total Cells Counted 100
[2022-01-22] MEDS: LACTATED RINGERS 1,000 ML IV SCH ×3 (07:58→23:08)
[2022-01-22] MEDS ORDERED: PANTOPRAZOLE 40 MG TABLET PO SCH (09:00)
[2022-01-22] MEDS ORDERED: MIDAZOLAM 2 MG/2 ML VIAL ONE (09:33)
[2022-01-22] MEDS ORDERED: LIDOCAINE 2% 5 ML VIAL ONE (09:33)
[2022-01-22] MEDS ORDERED: propofoL 200 MG/20 ML VIAL IV ONE (09:33)
[2022-01-22] MEDS ORDERED: fentaNYL 100 MCG/2 ML VIAL ONE (09:33)
[2022-01-22] MEDS ORDERED: PHENYLEPHRINE 1 MG/10 ML SYRINGE IV ONE (09:53)
[2022-01-22] MEDS ORDERED: ONDANSETRON 4 MG/2 ML VIAL ONE (10:14)
[2022-01-22] MEDS ORDERED: SEVOFLURANE 1 UNIT/15 MINUTE INH ONE (10:20)
[2022-01-22] MEDS ORDERED: LACTATED RINGERS 1,000 ML IV ONE (10:23)
[2022-01-22] MEDS: LACTULOSE 20 GM/30 ML UDCUP PO SCH ×4 (11:41→20:08)
[2022-01-22] MEDS: RIFAXIMIN 550 MG TABLET PO SCH ×2 (11:42→20:09)
[2022-01-22] MEDS: PANTOPRAZOLE 40 MG TABLET PO SCH (11:42)
[2022-01-22] MEDS: INSULIN REGULAR 100 UNIT/ML SUBCUT SCH ×3 (12:39→20:12)
[2022-01-22] MEDS: MORPHINE 2 MG/1 ML SYRINGE IV PRN (13:45)
[2022-01-22 19:13] LABS: Hematocrit 26.6 VOL% (42.0-52.0); Hemoglobin 7.8 GM/DL (14.0-18.0)
[2022-01-23] MEDS: HYDROmorphone 1 MG/1 ML SYRINGE IV PRN ×4 (05:35→23:22)
[2022-01-23 06:20] LABS: Basophils % 0.7 % (0.0-0.8); Eosinophils # 0.1 10*3/uL (0.0-0.87); Eosinophils % 1.4 % (0.00-10.9); Hematocrit 25.3 VOL% (42.0-52.0); Hemoglobin 7.7 GM/DL (14.0-18.0); Immature Granulocytes % 0.7 %; Immature Granulocytes Absolute 0.04 #; Lymphocytes # 0.5 10*3/uL (1.4-4.0); Lymphocytes % 8.5 % (21.2-54.2); Mean Corpuscular HGB Conc 30.4 GM/DL (32-36); Mean Corpuscular Volume 84.1 FL (87-102); Mean Platelet Volume 9.8 FL (9.6-12.0); Monocytes # 0.9 10*3/uL (0.11-0.8); Monocytes % 15.9 % (1.7-12.7); Neutrophils % 72.8 % (38.7-73.9); Platelet Count 178 T/CUMM (130-400); Red Blood Count 3.01 MC/CUMM (3.8-5.5); Red Cell Distribution Width 17.6 % (9.3-17.3); White Blood Count 5.8 T/CUMM (4-12)
[2022-01-23 06:22] LABS: Calcium 8.6 MG/DL (8.5-10.1); Osmolality,Calculated 275.1 MOS/KG (273-304); Potassium 4.1 MMOL/L (3.5-5.1)
[2022-01-23 06:43] LABS: Eosinophils 1 % (0-10); Hypochromia 1+; Lymphocytes 5 % (20-55); Microcytosis 1+; Platelet Estimate Adequate; Total Cells Counted 100
[2022-01-23] MEDS: INSULIN REGULAR 100 UNIT/ML SUBCUT SCH ×4 (08:29→20:35)
[2022-01-23] MEDS: MORPHINE 2 MG/1 ML SYRINGE IV PRN (08:40)
[2022-01-23] MEDS: PIPERACILLIN/TAZOBACTAM 3,375 MG in SODIUM CHLORIDE 0.9% 100 ML IV SCH ×3 (09:28→23:24)
[2022-01-23] MEDS: LACTULOSE 20 GM/30 ML UDCUP PO SCH ×4 (10:31→20:34)
[2022-01-23] MEDS: RIFAXIMIN 550 MG TABLET PO SCH ×2 (10:32→20:38)
[2022-01-23] MEDS: PANTOPRAZOLE 40 MG TABLET PO SCH (10:32)
[2022-01-23 11:26] LABS: % Iron Saturation 15.3 % (18-50)
[2022-01-23 11:31] LABS: Folate 10.16 NG/ML (5.38-24.0); Vitamin B12 > 2000 PG/ML (211-911)
[2022-01-23] MEDS: FERRIC GLUCONATE COMPLEX 125 MG in SODIUM CHLORIDE 0.9% 100 ML IV SCH (15:50)
[2022-01-23] MEDS: ERGOCALCIFEROL 50,000 UNIT CAPSULE PO SCH (17:51)
[2022-01-23] MEDS: SERTRALINE 100 MG TABLET PO SCH (20:38)
[2022-01-23] MEDS: FOLIC ACID 1 MG TABLET PO SCH (20:38)
[2022-01-23] MEDS: LACTATED RINGERS 1,000 ML IV SCH ×2 (20:38→22:09)
[2022-01-24] MEDS: HYDROmorphone 1 MG/1 ML SYRINGE IV PRN ×4 (03:51→10:35)
[2022-01-24 06:38] LABS: Basophils % 0.4 % (0.0-0.8); Eosinophils # 0.1 10*3/uL (0.0-0.87); Eosinophils % 1.6 % (0.00-10.9); Hematocrit 26.9 VOL% (42.0-52.0); Hemoglobin 8.2 GM/DL (14.0-18.0); Immature Granulocytes % 0.4 %; Immature Granulocytes Absolute 0.02 #; Lymphocytes # 0.5 10*3/uL (1.4-4.0); Lymphocytes % 10.2 % (21.2-54.2); Mean Corpuscular HGB Conc 30.5 GM/DL (32-36); Mean Corpuscular Volume 84.9 FL (87-102); Mean Platelet Volume 9.1 FL (9.6-12.0); Monocytes # 0.8 10*3/uL (0.11-0.8); Monocytes % 15.8 % (1.7-12.7); Neutrophils % 71.6 % (38.7-73.9); Platelet Count 164 T/CUMM (130-400); Red Blood Count 3.17 MC/CUMM (3.8-5.5); Red Cell Distribution Width 17.9 % (9.3-17.3); White Blood Count 4.9 T/CUMM (4-12)
[2022-01-24 06:58] LABS: Eosinophils 2 % (0-10); Hypochromia Slight; Lymphocytes 7 % (20-55); Microcytosis Slight; Platelet Estimate Adequate; Total Cells Counted 100
[2022-01-24 07:00] LABS: Albumin 1.5 G/DL (3.4-5.0); Bilirubin,Total 0.5 MG/DL (0.20-1.00); Calcium 7.9 MG/DL (8.5-10.1); Osmolality,Calculated 278.5 MOS/KG (273-304); Potassium 3.8 MMOL/L (3.5-5.1); Total Protein 5.4 G/DL (6.4-8.2)
[2022-01-24] MEDS ORDERED: propofoL 200 MG/20 ML VIAL IV ONE (08:37)
[2022-01-24] MEDS ORDERED: MIDAZOLAM 2 MG/2 ML VIAL ONE (08:37)
[2022-01-24] MEDS ORDERED: LIDOCAINE 2% 5 ML VIAL ONE (08:37)
[2022-01-24] MEDS ORDERED: fentaNYL 100 MCG/2 ML VIAL ONE ×2 (08:37→09:24)
[2022-01-24] MEDS ORDERED: SEVOFLURANE 1 UNIT/15 MINUTE INH ONE (09:14)
[2022-01-24] MEDS ORDERED: ONDANSETRON 4 MG/2 ML VIAL ONE (09:16)
[2022-01-24] MEDS ORDERED: PHENYLEPHRINE 1 MG/10 ML SYRINGE IV ONE ×2 (09:16→09:32)
[2022-01-24] MEDS ORDERED: KETAMINE 500 MG/10 ML VIAL ONE (09:24)
[2022-01-24] MEDS ORDERED: diphenhydrAMINE 50 MG/1 ML VIAL IV PRN (10:14)
[2022-01-24] MEDS ORDERED: PROMETHAZINE INJ 25 MG in SODIUM CHLORIDE 0.9% 50 ML IV PRN (10:14)
[2022-01-24] MEDS ORDERED: ONDANSETRON 4 MG/2 ML VIAL IV PRN (10:14)
[2022-01-24] MEDS ORDERED: MEPERIDINE 25 MG/1 ML VIAL IV PRN (10:14)
[2022-01-24] MEDS: PIPERACILLIN/TAZOBACTAM 3,375 MG in SODIUM CHLORIDE 0.9% 100 ML IV SCH ×2 (10:47→17:23)
[2022-01-24] MEDS: LACTATED RINGERS 1,000 ML IV SCH (10:48)
[2022-01-24] MEDS: INSULIN REGULAR 100 UNIT/ML SUBCUT SCH ×4 (11:37→21:07)
[2022-01-24] MEDS: MULTIVITAMIN (CENTRUM) TABLET PO SCH (11:52)
[2022-01-24] MEDS: SERTRALINE 100 MG TABLET PO SCH ×2 (11:52→21:07)
[2022-01-24] MEDS: CYANOCOBALAMIN 500 MCG TABLET PO SCH (11:52)
[2022-01-24] MEDS: THIAMINE 100 MG TABLET PO SCH (11:53)
[2022-01-24] MEDS: FOLIC ACID 1 MG TABLET PO SCH ×2 (11:53→21:07)
[2022-01-24] MEDS: FERRIC GLUCONATE COMPLEX 125 MG in SODIUM CHLORIDE 0.9% 100 ML IV SCH (11:53)
[2022-01-24] MEDS: RIFAXIMIN 550 MG TABLET PO SCH ×2 (11:53→21:07)
[2022-01-24] MEDS: PANTOPRAZOLE 40 MG TABLET PO SCH (11:53)
[2022-01-24] MEDS: LACTULOSE 20 GM/30 ML UDCUP PO SCH ×4 (11:54→21:08)
[2022-01-24] MEDS ORDERED: ZINC OXIDE 16% PASTE 57 GM TUBE TOP PRN (12:00)
[2022-01-25] MEDS: PIPERACILLIN/TAZOBACTAM 3,375 MG in SODIUM CHLORIDE 0.9% 100 ML IV SCH ×3 (01:14→17:35)
[2022-01-25] MEDS: LACTATED RINGERS 1,000 ML IV SCH ×2 (05:29→17:35)
[2022-01-25 06:03] LABS: Basophils % 0.4 % (0.0-0.8); Eosinophils # 0.1 10*3/uL (0.0-0.87); Eosinophils % 1.5 % (0.00-10.9); Hematocrit 23.9 VOL% (42.0-52.0); Hemoglobin 7.3 GM/DL (14.0-18.0); Immature Granulocytes % 0.6 %; Immature Granulocytes Absolute 0.03 #; Lymphocytes # 0.5 10*3/uL (1.4-4.0); Lymphocytes % 9.8 % (21.2-54.2); Mean Corpuscular HGB Conc 30.5 GM/DL (32-36); Mean Corpuscular Volume 84.5 FL (87-102); Mean Platelet Volume 9.3 FL (9.6-12.0); Monocytes # 0.7 10*3/uL (0.11-0.8); Monocytes % 13.2 % (1.7-12.7); Neutrophils % 74.5 % (38.7-73.9); Platelet Count 164 T/CUMM (130-400); Red Blood Count 2.83 MC/CUMM (3.8-5.5); Red Cell Distribution Width 18.2 % (9.3-17.3); White Blood Count 5.3 T/CUMM (4-12)
[2022-01-25 06:27] LABS: Band Neutrophils 3 % (0-10); Eosinophils 1 % (0-10); Hypochromia Slight; Lymphocytes 1 % (20-55); Microcytosis 1+; Total Cells Counted 100
[2022-01-25 06:28] LABS: Calcium 8.4 MG/DL (8.5-10.1); Osmolality,Calculated 274.7 MOS/KG (273-304)
[2022-01-25] MEDS: INSULIN REGULAR 100 UNIT/ML SUBCUT SCH ×4 (07:30→21:41)
[2022-01-25] MEDS: CYANOCOBALAMIN 500 MCG TABLET PO SCH (08:51)
[2022-01-25] MEDS: FOLIC ACID 1 MG TABLET PO SCH ×2 (08:51→20:37)
[2022-01-25] MEDS: SERTRALINE 100 MG TABLET PO SCH ×2 (08:51→20:37)
[2022-01-25] MEDS: LACTULOSE 20 GM/30 ML UDCUP PO SCH ×4 (08:51→20:37)
[2022-01-25] MEDS: MULTIVITAMIN (CENTRUM) TABLET PO SCH (08:51)
[2022-01-25] MEDS: RIFAXIMIN 550 MG TABLET PO SCH ×2 (08:51→20:37)
[2022-01-25] MEDS: PANTOPRAZOLE 40 MG TABLET PO SCH (08:51)
[2022-01-25] MEDS: THIAMINE 100 MG TABLET PO SCH (08:51)
[2022-01-25] MEDS: FERRIC GLUCONATE COMPLEX 125 MG in SODIUM CHLORIDE 0.9% 100 ML IV SCH (08:52)
[2022-01-25] MEDS: HYDROmorphone 1 MG/1 ML SYRINGE IV PRN ×3 (09:02→21:36)
[2022-01-26] MEDS: PIPERACILLIN/TAZOBACTAM 3,375 MG in SODIUM CHLORIDE 0.9% 100 ML IV SCH ×3 (01:40→17:42)
[2022-01-26 05:30] LABS: Basophils % 0.6 % (0.0-0.8); Eosinophils # 0.1 10*3/uL (0.0-0.87); Eosinophils % 2.3 % (0.00-10.9); Hematocrit 26.8 VOL% (42.0-52.0); Hemoglobin 7.8 GM/DL (14.0-18.0); Immature Granulocytes % 0.4 %; Immature Granulocytes Absolute 0.02 #; Lymphocytes # 0.5 10*3/uL (1.4-4.0); Lymphocytes % 10.3 % (21.2-54.2); Mean Corpuscular HGB Conc 29.1 GM/DL (32-36); Mean Corpuscular Volume 87.6 FL (87-102); Mean Platelet Volume 9.5 FL (9.6-12.0); Monocytes # 0.8 10*3/uL (0.11-0.8); Monocytes % 16.1 % (1.7-12.7); Neutrophils % 70.3 % (38.7-73.9); Platelet Count 181 T/CUMM (130-400); Red Blood Count 3.06 MC/CUMM (3.8-5.5); Red Cell Distribution Width 18.6 % (9.3-17.3); White Blood Count 5.1 T/CUMM (4-12)
[2022-01-26 05:52] LABS: Calcium 8.7 MG/DL (8.5-10.1); Osmolality,Calculated 271.8 MOS/KG (273-304); Potassium 4.2 MMOL/L (3.5-5.1)
[2022-01-26 05:54] LABS: Eosinophils 2 % (0-10); Hypochromia 1+; Lymphocytes 10 % (20-55); Microcytosis 1+; Platelet Estimate Adequate; Total Cells Counted 100
[2022-01-26] MEDS: INSULIN REGULAR 100 UNIT/ML SUBCUT SCH ×4 (07:30→20:41)
[2022-01-26] MEDS ORDERED: LACTATED RINGERS 1,000 ML IV SCH (08:30)
[2022-01-26] MEDS ORDERED: LIDOCAINE 2% 5 ML VIAL ONE (08:39)
[2022-01-26] MEDS ORDERED: MIDAZOLAM 2 MG/2 ML VIAL ONE (08:39)
[2022-01-26] MEDS ORDERED: fentaNYL 100 MCG/2 ML VIAL ONE (08:39)
[2022-01-26] MEDS ORDERED: SEVOFLURANE 1 UNIT/15 MINUTE INH ONE ×3 (08:39→10:33)
[2022-01-26] MEDS ORDERED: propofoL 200 MG/20 ML VIAL IV ONE (08:39)
[2022-01-26] MEDS ORDERED: ONDANSETRON 4 MG/2 ML VIAL ONE (09:25)
[2022-01-26] MEDS ORDERED: PHENYLEPHRINE DRIP 20 MG/250 ML PREMIX IV ONE (10:00)
[2022-01-26] MEDS: MULTIVITAMIN (CENTRUM) TABLET PO SCH (10:34)
[2022-01-26] MEDS: LACTULOSE 20 GM/30 ML UDCUP PO SCH ×4 (10:34→20:40)
[2022-01-26] MEDS: CYANOCOBALAMIN 500 MCG TABLET PO SCH (11:57)
[2022-01-26] MEDS: FERRIC GLUCONATE COMPLEX 125 MG in SODIUM CHLORIDE 0.9% 100 ML IV SCH (11:57)
[2022-01-26] MEDS: SERTRALINE 100 MG TABLET PO SCH ×2 (11:58→20:41)
[2022-01-26] MEDS: THIAMINE 100 MG TABLET PO SCH (11:58)
[2022-01-26] MEDS: RIFAXIMIN 550 MG TABLET PO SCH ×2 (11:58→20:41)
[2022-01-26] MEDS: PANTOPRAZOLE 40 MG TABLET PO SCH (11:58)
[2022-01-26] MEDS: FOLIC ACID 1 MG TABLET PO SCH ×2 (11:58→20:41)
[2022-01-26] MEDS: LACTATED RINGERS 1,000 ML IV SCH (11:59)
[2022-01-26] MEDS: HYDROmorphone 1 MG/1 ML SYRINGE IV PRN ×2 (16:25→20:41)
[2022-01-27] MEDS: PIPERACILLIN/TAZOBACTAM 3,375 MG in SODIUM CHLORIDE 0.9% 100 ML IV SCH ×3 (01:08→16:20)
[2022-01-27] MEDS: HYDROmorphone 1 MG/1 ML SYRINGE IV PRN ×3 (03:24→20:40)
[2022-01-27] MEDS: LACTATED RINGERS 1,000 ML IV SCH (03:27)
[2022-01-27 06:26] LABS: Basophils % 0.7 % (0.0-0.8); Eosinophils # 0.2 10*3/uL (0.0-0.87); Eosinophils % 2.7 % (0.00-10.9); Hematocrit 26.2 VOL% (42.0-52.0); Hemoglobin 7.8 GM/DL (14.0-18.0); Immature Granulocytes % 0.4 %; Immature Granulocytes Absolute 0.02 #; Lymphocytes # 0.6 10*3/uL (1.4-4.0); Lymphocytes % 10.6 % (21.2-54.2); Mean Corpuscular HGB Conc 29.8 GM/DL (32-36); Mean Corpuscular Volume 87.6 FL (87-102); Mean Platelet Volume 9.2 FL (9.6-12.0); Monocytes # 0.9 10*3/uL (0.11-0.8); Monocytes % 16.3 % (1.7-12.7); Neutrophils % 69.3 % (38.7-73.9); Platelet Count 169 T/CUMM (130-400); Red Blood Count 2.99 MC/CUMM (3.8-5.5); Red Cell Distribution Width 18.9 % (9.3-17.3); White Blood Count 5.7 T/CUMM (4-12)
[2022-01-27 06:50] LABS: Eosinophils 2 % (0-10); Lymphocytes 7 % (20-55); Platelet Estimate Adequate; Total Cells Counted 100
[2022-01-27 06:51] LABS: Hypochromia Slight; Microcytosis Slight
[2022-01-27 06:56] LABS: Calcium 8.9 MG/DL (8.5-10.1); Osmolality,Calculated 279.3 MOS/KG (273-304); Potassium 4.3 MMOL/L (3.5-5.1)
[2022-01-27] MEDS: INSULIN REGULAR 100 UNIT/ML SUBCUT SCH ×4 (08:17→20:33)
[2022-01-27] MEDS: FERRIC GLUCONATE COMPLEX 125 MG in SODIUM CHLORIDE 0.9% 100 ML IV SCH (08:43)
[2022-01-27] MEDS: LACTULOSE 20 GM/30 ML UDCUP PO SCH ×4 (08:43→20:33)
[2022-01-27] MEDS: CYANOCOBALAMIN 500 MCG TABLET PO SCH (08:44)
[2022-01-27] MEDS: PANTOPRAZOLE 40 MG TABLET PO SCH (08:44)
[2022-01-27] MEDS: THIAMINE 100 MG TABLET PO SCH (08:44)
[2022-01-27] MEDS: FOLIC ACID 1 MG TABLET PO SCH ×2 (08:44→20:33)
[2022-01-27] MEDS: RIFAXIMIN 550 MG TABLET PO SCH ×2 (08:44→20:33)
[2022-01-27] MEDS: SERTRALINE 100 MG TABLET PO SCH ×2 (08:44→20:33)
[2022-01-27] MEDS: MULTIVITAMIN (CENTRUM) TABLET PO SCH (08:44)
[2022-01-27] MEDS ORDERED: MYLANTA/LIDO VISC 2:1 300 ML BOTTLE SWISH/SWAL PRN (10:06)
[2022-01-27] MEDS ORDERED: diphenhydrAMINE CAP 25 MG CAPSULE PO ONE (21:03)
[2022-01-28] MEDS: LACTATED RINGERS 1,000 ML IV SCH (00:36)
[2022-01-28] MEDS: PIPERACILLIN/TAZOBACTAM 3,375 MG in SODIUM CHLORIDE 0.9% 100 ML IV SCH ×3 (00:36→18:06)
[2022-01-28 05:27] LABS: Basophils % 0.7 % (0.0-0.8); Eosinophils # 0.1 10*3/uL (0.0-0.87); Eosinophils % 2.2 % (0.00-10.9); Hematocrit 26.3 VOL% (42.0-52.0); Hemoglobin 7.8 GM/DL (14.0-18.0); Immature Granulocytes % 0.3 %; Immature Granulocytes Absolute 0.02 #; Lymphocytes # 0.6 10*3/uL (1.4-4.0); Lymphocytes % 10.9 % (21.2-54.2); Mean Corpuscular HGB Conc 29.7 GM/DL (32-36); Mean Corpuscular Volume 87.4 FL (87-102); Mean Platelet Volume 8.8 FL (9.6-12.0); Monocytes # 0.8 10*3/uL (0.11-0.8); Monocytes % 12.8 % (1.7-12.7); Neutrophils % 73.1 % (38.7-73.9); Platelet Count 169 T/CUMM (130-400); Red Blood Count 3.01 MC/CUMM (3.8-5.5); Red Cell Distribution Width 19.1 % (9.3-17.3); White Blood Count 5.9 T/CUMM (4-12)
[2022-01-28 05:38] LABS: Albumin 1.8 G/DL (3.4-5.0); Bilirubin,Total 0.7 MG/DL (0.20-1.00); Calcium 8.8 MG/DL (8.5-10.1); Osmolality,Calculated 269.8 MOS/KG (273-304); Potassium 3.8 MMOL/L (3.5-5.1); Total Protein 6.1 G/DL (6.4-8.2)
[2022-01-28 06:19] LABS: Eosinophils 3 % (0-10); Lymphocytes 11 % (20-55); Platelet Estimate Adequate; Total Cells Counted 100
[2022-01-28] MEDS: HYDROmorphone 1 MG/1 ML SYRINGE IV PRN (06:31)
[2022-01-28] MEDS ORDERED: propofoL 200 MG/20 ML VIAL IV ONE (08:32)
[2022-01-28] MEDS ORDERED: fentaNYL 100 MCG/2 ML VIAL ONE (08:32)
[2022-01-28] MEDS ORDERED: ONDANSETRON 4 MG/2 ML VIAL ONE (08:32)
[2022-01-28] MEDS ORDERED: LIDOCAINE 2% 5 ML VIAL ONE (08:32)
[2022-01-28] MEDS ORDERED: MIDAZOLAM 2 MG/2 ML VIAL ONE (08:32)
[2022-01-28] MEDS ORDERED: PHENYLEPHRINE 1 MG/10 ML SYRINGE IV ONE ×2 (09:26→09:48)
[2022-01-28] MEDS ORDERED: LACTATED RINGERS 1,000 ML IV ONE (09:28)
[2022-01-28] MEDS ORDERED: SEVOFLURANE 1 UNIT/15 MINUTE INH ONE (09:37)
[2022-01-28] MEDS: INSULIN REGULAR 100 UNIT/ML SUBCUT SCH ×4 (11:35→21:48)
[2022-01-28] MEDS: LACTULOSE 20 GM/30 ML UDCUP PO SCH ×4 (11:36→20:27)
[2022-01-28] MEDS: PANTOPRAZOLE 40 MG TABLET PO SCH (11:36)
[2022-01-28] MEDS: MULTIVITAMIN (CENTRUM) TABLET PO SCH (11:36)
[2022-01-28] MEDS: FOLIC ACID 1 MG TABLET PO SCH ×2 (11:36→20:28)
[2022-01-28] MEDS: SERTRALINE 100 MG TABLET PO SCH ×2 (11:37→20:28)
[2022-01-28] MEDS: THIAMINE 100 MG TABLET PO SCH (11:37)
[2022-01-28] MEDS: CYANOCOBALAMIN 500 MCG TABLET PO SCH (11:37)
[2022-01-28] MEDS: RIFAXIMIN 550 MG TABLET PO SCH ×2 (11:37→20:28)
[2022-01-28] MEDS: MORPHINE 2 MG/1 ML SYRINGE IV PRN (19:43)
[2022-01-29] MEDS: PIPERACILLIN/TAZOBACTAM 3,375 MG in SODIUM CHLORIDE 0.9% 100 ML IV SCH ×2 (00:40→09:13)
[2022-01-29 05:42] LABS: Basophils % 0.5 % (0.0-0.8); Eosinophils # 0.1 10*3/uL (0.0-0.87); Eosinophils % 2.4 % (0.00-10.9); Hematocrit 25.2 VOL% (42.0-52.0); Hemoglobin 7.4 GM/DL (14.0-18.0); Immature Granulocytes % 0.7 %; Immature Granulocytes Absolute 0.04 #; Lymphocytes # 0.6 10*3/uL (1.4-4.0); Mean Corpuscular HGB Conc 29.4 GM/DL (32-36); Mean Corpuscular Volume 88.1 FL (87-102); Mean Platelet Volume 9.5 FL (9.6-12.0); Monocytes # 0.9 10*3/uL (0.11-0.8); Monocytes % 16.1 % (1.7-12.7); Neutrophils % 70.3 % (38.7-73.9); Platelet Count 157 T/CUMM (130-400); Red Blood Count 2.86 MC/CUMM (3.8-5.5); Red Cell Distribution Width 19.4 % (9.3-17.3); White Blood Count 5.5 T/CUMM (4-12)
[2022-01-29 06:01] LABS: Calcium 8.5 MG/DL (8.5-10.1); Osmolality,Calculated 271.8 MOS/KG (273-304); Potassium 4.5 MMOL/L (3.5-5.1)
[2022-01-29 07:12] LABS: Eosinophils 2 % (0-10); Lymphocytes 9 % (20-55); Platelet Estimate Adequate; Total Cells Counted 100
[2022-01-29 07:13] LABS: Hypochromia Slight; Microcytosis Slight
[2022-01-29] MEDS: INSULIN REGULAR 100 UNIT/ML SUBCUT SCH ×4 (08:29→20:52)
[2022-01-29] MEDS: LACTATED RINGERS 1,000 ML IV SCH ×2 (08:57→16:23)
[2022-01-29] MEDS: LACTULOSE 20 GM/30 ML UDCUP PO SCH ×4 (09:13→20:53)
[2022-01-29] MEDS: THIAMINE 100 MG TABLET PO SCH (09:14)
[2022-01-29] MEDS: CYANOCOBALAMIN 500 MCG TABLET PO SCH (09:14)
[2022-01-29] MEDS: PANTOPRAZOLE 40 MG TABLET PO SCH (09:14)
[2022-01-29] MEDS: SERTRALINE 100 MG TABLET PO SCH ×2 (09:14→20:52)
[2022-01-29] MEDS: RIFAXIMIN 550 MG TABLET PO SCH ×2 (09:14→20:52)
[2022-01-29] MEDS: FOLIC ACID 1 MG TABLET PO SCH ×2 (09:14→20:52)
[2022-01-29] MEDS: MULTIVITAMIN (CENTRUM) TABLET PO SCH (09:15)
[2022-01-29] MEDS ORDERED: SERTRALINE 25 MG TABLET PO SCH (12:00)
[2022-01-29] MEDS: traMADol 50 MG TABLET PO PRN ×2 (13:58→20:52)
[2022-01-30] MEDS ORDERED: KETOROLAC 15 MG/1 ML VIAL IV ONE ×3 (02:00→14:44)
[2022-01-30 05:29] LABS: Basophils % 0.6 % (0.0-0.8); Eosinophils # 0.1 10*3/uL (0.0-0.87); Eosinophils % 2.1 % (0.00-10.9); Hemoglobin 7.7 GM/DL (14.0-18.0); Immature Granulocytes % 0.6 %; Immature Granulocytes Absolute 0.03 #; Lymphocytes # 0.5 10*3/uL (1.4-4.0); Lymphocytes % 9.4 % (21.2-54.2); Mean Corpuscular HGB Conc 29.6 GM/DL (32-36); Mean Corpuscular Volume 87.5 FL (87-102); Mean Platelet Volume 8.9 FL (9.6-12.0); Monocytes # 0.7 10*3/uL (0.11-0.8); Monocytes % 12.2 % (1.7-12.7); Neutrophils % 75.1 % (38.7-73.9); Platelet Count 156 T/CUMM (130-400); Red Blood Count 2.97 MC/CUMM (3.8-5.5); White Blood Count 5.3 T/CUMM (4-12)
[2022-01-30 05:55] LABS: Osmolality,Calculated 268.1 MOS/KG (273-304); Potassium 4.2 MMOL/L (3.5-5.1)
[2022-01-30 06:40] LABS: Band Neutrophils 1 % (0-10); Eosinophils 5 % (0-10); Hypochromia 1+; Lymphocytes 7 % (20-55); Microcytosis 1+; Platelet Estimate Adequate; Total Cells Counted 100
[2022-01-30] MEDS: RIFAXIMIN 550 MG TABLET PO SCH ×2 (08:57→22:19)
[2022-01-30] MEDS: SERTRALINE 100 MG TABLET PO SCH ×2 (08:57→22:20)
[2022-01-30] MEDS: FOLIC ACID 1 MG TABLET PO SCH ×2 (08:57→22:20)
[2022-01-30] MEDS: PANTOPRAZOLE 40 MG TABLET PO SCH (08:57)
[2022-01-30] MEDS: MULTIVITAMIN (CENTRUM) TABLET PO SCH (08:57)
[2022-01-30] MEDS: LACTULOSE 20 GM/30 ML UDCUP PO SCH ×4 (08:58→22:20)
[2022-01-30] MEDS: THIAMINE 100 MG TABLET PO SCH (08:58)
[2022-01-30] MEDS: CYANOCOBALAMIN 500 MCG TABLET PO SCH (08:58)
[2022-01-30] MEDS: INSULIN REGULAR 100 UNIT/ML SUBCUT SCH ×4 (08:59→22:20)
[2022-01-30] MEDS: LACTATED RINGERS 1,000 ML IV SCH (11:01)
[2022-01-30] MEDS: traMADol 50 MG TABLET PO PRN (11:01)
[2022-01-30] MEDS: PREGABALIN 100 MG CAPSULE PO PRN (14:38)
[2022-01-30] MEDS: ERGOCALCIFEROL 50,000 UNIT CAPSULE PO SCH (14:38)
[2022-01-31] MEDS: traMADol 50 MG TABLET PO PRN ×2 (03:52→15:31)
[2022-01-31 05:58] LABS: Basophils # 0.1 10*3/uL (0.0-0.2); Basophils % 0.9 % (0.0-0.8); Eosinophils # 0.1 10*3/uL (0.0-0.87); Eosinophils % 2.3 % (0.00-10.9); Hematocrit 24.7 VOL% (42.0-52.0); Hemoglobin 7.4 GM/DL (14.0-18.0); Immature Granulocytes % 0.4 %; Immature Granulocytes Absolute 0.02 #; Lymphocytes # 0.7 10*3/uL (1.4-4.0); Lymphocytes % 12.2 % (21.2-54.2); Mean Corpuscular Volume 87.3 FL (87-102); Mean Platelet Volume 8.6 FL (9.6-12.0); Monocytes # 0.7 10*3/uL (0.11-0.8); Monocytes % 12.2 % (1.7-12.7); Platelet Count 144 T/CUMM (130-400); Red Blood Count 2.83 MC/CUMM (3.8-5.5); Red Cell Distribution Width 20.2 % (9.3-17.3); White Blood Count 5.3 T/CUMM (4-12)
[2022-01-31 06:14] LABS: Calcium 7.9 MG/DL (8.5-10.1); Osmolality,Calculated 274.5 MOS/KG (273-304); Potassium 3.8 MMOL/L (3.5-5.1)
[2022-01-31] MEDS ORDERED: LIDOCAINE 2% 5 ML VIAL ONE (08:08)
[2022-01-31] MEDS ORDERED: propofoL 200 MG/20 ML VIAL IV ONE (08:08)
[2022-01-31] MEDS ORDERED: SEVOFLURANE 1 UNIT/15 MINUTE INH ONE (08:08)
[2022-01-31] MEDS ORDERED: ONDANSETRON 4 MG/2 ML VIAL ONE (08:08)
[2022-01-31] MEDS ORDERED: MIDAZOLAM 2 MG/2 ML VIAL ONE (08:09)
[2022-01-31] MEDS ORDERED: fentaNYL 100 MCG/2 ML VIAL ONE (08:09)
[2022-01-31] MEDS: INSULIN REGULAR 100 UNIT/ML SUBCUT SCH ×4 (08:25→21:10)
[2022-01-31] MEDS ORDERED: LACTATED RINGERS 1,000 ML IV SCH (08:30)
[2022-01-31] MEDS ORDERED: PHENYLEPHRINE 1 MG/10 ML SYRINGE IV ONE (08:49)
[2022-01-31] MEDS: MULTIVITAMIN (CENTRUM) TABLET PO SCH (12:20)
[2022-01-31] MEDS: PANTOPRAZOLE 40 MG TABLET PO SCH (12:20)
[2022-01-31] MEDS: FOLIC ACID 1 MG TABLET PO SCH ×2 (12:20→21:10)
[2022-01-31] MEDS: LACTULOSE 20 GM/30 ML UDCUP PO SCH ×5 (12:20→21:10)
[2022-01-31] MEDS: CYANOCOBALAMIN 500 MCG TABLET PO SCH (12:21)
[2022-01-31] MEDS: PIPERACILLIN/TAZOBACTAM 3,375 MG in SODIUM CHLORIDE 0.9% 100 ML IV SCH ×2 (12:21→21:11)
[2022-01-31] MEDS: RIFAXIMIN 550 MG TABLET PO SCH ×2 (12:21→21:10)
[2022-01-31] MEDS: THIAMINE 100 MG TABLET PO SCH (12:21)
[2022-01-31] MEDS: SERTRALINE 100 MG TABLET PO SCH ×2 (12:21→21:12)
[2022-01-31] MEDS: LINEZOLID INJ 600 MG/300 ML PREMIX IV SCH (13:08)
[2022-01-31] MEDS: LACTATED RINGERS 1,000 ML IV SCH (17:32)
[2022-01-31] MEDS: PREGABALIN 100 MG CAPSULE PO PRN (21:11)
[2022-02-01] MEDS: LINEZOLID INJ 600 MG/300 ML PREMIX IV SCH ×2 (00:43→13:31)
[2022-02-01] MEDS: traMADol 50 MG TABLET PO PRN (03:43)
[2022-02-01] MEDS: PIPERACILLIN/TAZOBACTAM 3,375 MG in SODIUM CHLORIDE 0.9% 100 ML IV SCH ×2 (04:47→13:31)
[2022-02-01 05:47] LABS: Basophils # 0.1 10*3/uL (0.0-0.2); Basophils % 0.7 % (0.0-0.8); Eosinophils # 0.2 10*3/uL (0.0-0.87); Eosinophils % 2.1 % (0.00-10.9); Hematocrit 25.8 VOL% (42.0-52.0); Hemoglobin 7.6 GM/DL (14.0-18.0); Immature Granulocytes % 0.4 %; Immature Granulocytes Absolute 0.03 #; Lymphocytes # 0.6 10*3/uL (1.4-4.0); Lymphocytes % 8.6 % (21.2-54.2); Mean Corpuscular HGB Conc 29.5 GM/DL (32-36); Mean Corpuscular Volume 88.1 FL (87-102); Mean Platelet Volume 8.9 FL (9.6-12.0); Monocytes # 0.8 10*3/uL (0.11-0.8); Monocytes % 11.2 % (1.7-12.7); Platelet Count 158 T/CUMM (130-400); Red Blood Count 2.93 MC/CUMM (3.8-5.5); Red Cell Distribution Width 20.1 % (9.3-17.3); White Blood Count 7.1 T/CUMM (4-12)
[2022-02-01 06:08] LABS: Eosinophils 4 % (0-10); Lymphocytes 5 % (20-55); Total Cells Counted 100
[2022-02-01 06:09] LABS: Hypochromia Slight; Microcytosis Slight; Platelet Estimate Adequate
[2022-02-01 06:13] LABS: Albumin 1.5 G/DL (3.4-5.0); Bilirubin,Total 0.5 MG/DL (0.20-1.00); Calcium 7.8 MG/DL (8.5-10.1); Osmolality,Calculated 274.8 MOS/KG (273-304); Potassium 4.1 MMOL/L (3.5-5.1); Total Protein 5.6 G/DL (6.4-8.2)
[2022-02-01] MEDS: INSULIN REGULAR 100 UNIT/ML SUBCUT SCH ×4 (07:48→20:31)
[2022-02-01] MEDS: RIFAXIMIN 550 MG TABLET PO SCH ×2 (08:22→20:31)
[2022-02-01] MEDS: MULTIVITAMIN (CENTRUM) TABLET PO SCH (08:22)
[2022-02-01] MEDS: CYANOCOBALAMIN 500 MCG TABLET PO SCH (08:23)
[2022-02-01] MEDS: THIAMINE 100 MG TABLET PO SCH (08:23)
[2022-02-01] MEDS: PANTOPRAZOLE 40 MG TABLET PO SCH (08:24)
[2022-02-01] MEDS: FOLIC ACID 1 MG TABLET PO SCH ×2 (08:24→20:31)
[2022-02-01] MEDS: SERTRALINE 100 MG TABLET PO SCH ×2 (08:24→20:31)
[2022-02-01] MEDS: LACTULOSE 20 GM/30 ML UDCUP PO SCH ×4 (08:25→20:30)
[2022-02-01] MEDS: LACTATED RINGERS 1,000 ML IV SCH (17:03)
[2022-02-01] MEDS: PREGABALIN 100 MG CAPSULE PO PRN (20:31)
[2022-02-01] MEDS: KETOROLAC 15 MG/1 ML VIAL IV PRN (23:09)
[2022-02-02] MEDS: LINEZOLID INJ 600 MG/300 ML PREMIX IV SCH ×3 (01:01→23:00)
[2022-02-02] MEDS: PIPERACILLIN/TAZOBACTAM 3,375 MG in SODIUM CHLORIDE 0.9% 100 ML IV SCH ×3 (03:03→17:00)
[2022-02-02 05:56] LABS: Basophils % 0.6 % (0.0-0.8); Eosinophils # 0.2 10*3/uL (0.0-0.87); Eosinophils % 3.3 % (0.00-10.9); Hematocrit 25.8 VOL% (42.0-52.0); Hemoglobin 7.7 GM/DL (14.0-18.0); Immature Granulocytes % 0.4 %; Immature Granulocytes Absolute 0.02 #; Lymphocytes # 0.6 10*3/uL (1.4-4.0); Lymphocytes % 11.9 % (21.2-54.2); Mean Corpuscular HGB Conc 29.8 GM/DL (32-36); Mean Corpuscular Volume 88.7 FL (87-102); Monocytes # 0.5 10*3/uL (0.11-0.8); Monocytes % 10.6 % (1.7-12.7); Neutrophils % 73.2 % (38.7-73.9); Platelet Count 124 T/CUMM (130-400); Red Blood Count 2.91 MC/CUMM (3.8-5.5); Red Cell Distribution Width 20.1 % (9.3-17.3); White Blood Count 4.8 T/CUMM (4-12)
[2022-02-02 06:17] LABS: Albumin 1.5 G/DL (3.4-5.0); Bilirubin,Total 0.5 MG/DL (0.20-1.00); Osmolality,Calculated 274.5 MOS/KG (273-304); Potassium 3.6 MMOL/L (3.5-5.1); Total Protein 5.7 G/DL (6.4-8.2)
[2022-02-02] MEDS: PREGABALIN 100 MG CAPSULE PO PRN ×2 (09:45→22:03)
[2022-02-02] MEDS: SERTRALINE 100 MG TABLET PO SCH ×2 (09:45→22:03)
[2022-02-02] MEDS: MULTIVITAMIN (CENTRUM) TABLET PO SCH (09:45)
[2022-02-02] MEDS: FOLIC ACID 1 MG TABLET PO SCH ×2 (09:45→22:04)
[2022-02-02] MEDS: RIFAXIMIN 550 MG TABLET PO SCH ×2 (09:45→22:03)
[2022-02-02] MEDS: CYANOCOBALAMIN 500 MCG TABLET PO SCH (09:45)
[2022-02-02] MEDS: THIAMINE 100 MG TABLET PO SCH (09:45)
[2022-02-02] MEDS: PANTOPRAZOLE 40 MG TABLET PO SCH (09:46)
[2022-02-02] MEDS: INSULIN REGULAR 100 UNIT/ML SUBCUT SCH ×4 (09:47→22:03)
[2022-02-02] MEDS: LACTULOSE 20 GM/30 ML UDCUP PO SCH ×4 (11:13→22:05)
[2022-02-02] MEDS: MORPHINE 2 MG/1 ML SYRINGE IV PRN ×2 (16:57→22:31)
[2022-02-02] MEDS: LACTATED RINGERS 1,000 ML IV SCH (18:30)
[2022-02-03] MEDS: PIPERACILLIN/TAZOBACTAM 3,375 MG in SODIUM CHLORIDE 0.9% 100 ML IV SCH ×2 (01:35→14:07)
[2022-02-03 05:46] LABS: Basophils # 0.1 10*3/uL (0.0-0.2); Basophils % 1.2 % (0.0-0.8); Eosinophils # 0.3 10*3/uL (0.0-0.87); Hematocrit 26.7 VOL% (42.0-52.0); Hemoglobin 7.9 GM/DL (14.0-18.0); Immature Granulocytes % 0.4 %; Immature Granulocytes Absolute 0.02 #; Lymphocytes # 0.8 10*3/uL (1.4-4.0); Lymphocytes % 14.5 % (21.2-54.2); Mean Corpuscular HGB Conc 29.6 GM/DL (32-36); Mean Platelet Volume 9.1 FL (9.6-12.0); Monocytes # 0.7 10*3/uL (0.11-0.8); Monocytes % 12.8 % (1.7-12.7); Neutrophils % 66.1 % (38.7-73.9); Platelet Count 141 T/CUMM (130-400); Red Cell Distribution Width 20.3 % (9.3-17.3); White Blood Count 5.2 T/CUMM (4-12)
[2022-02-03 06:09] LABS: Albumin 1.7 G/DL (3.4-5.0); Bilirubin,Total 0.5 MG/DL (0.20-1.00); Calcium 7.9 MG/DL (8.5-10.1); Osmolality,Calculated 276.4 MOS/KG (273-304); Potassium 4.1 MMOL/L (3.5-5.1)
[2022-02-03] MEDS: INSULIN REGULAR 100 UNIT/ML SUBCUT SCH ×4 (08:23→22:20)
[2022-02-03] MEDS ORDERED: LIDOCAINE 2% 5 ML VIAL ONE (09:45)
[2022-02-03] MEDS ORDERED: propofoL 200 MG/20 ML VIAL IV ONE (09:45)
[2022-02-03] MEDS ORDERED: ONDANSETRON 4 MG/2 ML VIAL ONE (09:45)
[2022-02-03] MEDS ORDERED: MIDAZOLAM 2 MG/2 ML VIAL ONE (09:46)
[2022-02-03] MEDS ORDERED: fentaNYL 100 MCG/2 ML VIAL ONE (09:46)
[2022-02-03] MEDS: CYANOCOBALAMIN 500 MCG TABLET PO SCH (14:01)
[2022-02-03] MEDS: RIFAXIMIN 550 MG TABLET PO SCH ×2 (14:01→22:20)
[2022-02-03] MEDS: LACTULOSE 20 GM/30 ML UDCUP PO SCH ×4 (14:02→22:20)
[2022-02-03] MEDS: MULTIVITAMIN (CENTRUM) TABLET PO SCH (14:02)
[2022-02-03] MEDS: PANTOPRAZOLE 40 MG TABLET PO SCH (14:03)
[2022-02-03] MEDS: THIAMINE 100 MG TABLET PO SCH (14:03)
[2022-02-03] MEDS: SERTRALINE 100 MG TABLET PO SCH ×2 (14:04→22:20)
[2022-02-03] MEDS: FOLIC ACID 1 MG TABLET PO SCH ×2 (14:07→22:20)
[2022-02-03] MEDS: LINEZOLID INJ 600 MG/300 ML PREMIX IV SCH (14:08)
[2022-02-03] MEDS: LACTATED RINGERS 1,000 ML IV SCH ×2 (14:09→22:27)
[2022-02-03] MEDS ORDERED: MEROPENEM 500 MG in SODIUM CHLORIDE 0.9% 100 ML IV SCH (17:00)
[2022-02-03] MEDS: LEVOFLOXACIN INJ 750 MG/150 ML PREMIX IV SCH (18:23)
[2022-02-03] MEDS: KETOROLAC 15 MG/1 ML VIAL IV PRN (18:24)
[2022-02-03] MEDS: PREGABALIN 100 MG CAPSULE PO PRN (22:20)
[2022-02-04] MEDS: traMADol 50 MG TABLET PO PRN (04:48)
[2022-02-04 05:51] LABS: Basophils # 0.1 10*3/uL (0.0-0.2); Basophils % 0.8 % (0.0-0.8); Eosinophils # 0.2 10*3/uL (0.0-0.87); Eosinophils % 2.9 % (0.00-10.9); Hematocrit 26.5 VOL% (42.0-52.0); Hemoglobin 7.8 GM/DL (14.0-18.0); Immature Granulocytes % 0.5 %; Immature Granulocytes Absolute 0.03 #; Lymphocytes # 0.7 10*3/uL (1.4-4.0); Lymphocytes % 10.6 % (21.2-54.2); Mean Corpuscular HGB Conc 29.4 GM/DL (32-36); Mean Corpuscular Volume 90.1 FL (87-102); Mean Platelet Volume 9.6 FL (9.6-12.0); Monocytes # 0.5 10*3/uL (0.11-0.8); Monocytes % 8.6 % (1.7-12.7); Neutrophils % 76.6 % (38.7-73.9); Platelet Count 153 T/CUMM (130-400); Red Blood Count 2.94 MC/CUMM (3.8-5.5); Red Cell Distribution Width 20.1 % (9.3-17.3); White Blood Count 6.2 T/CUMM (4-12)
[2022-02-04 06:07] LABS: Calcium 7.9 MG/DL (8.5-10.1); Osmolality,Calculated 280.5 MOS/KG (273-304); Potassium 3.8 MMOL/L (3.5-5.1)
[2022-02-04] MEDS: INSULIN REGULAR 100 UNIT/ML SUBCUT SCH ×4 (09:10→20:06)
[2022-02-04] MEDS: MULTIVITAMIN (CENTRUM) TABLET PO SCH (09:15)
[2022-02-04] MEDS: PANTOPRAZOLE 40 MG TABLET PO SCH (09:15)
[2022-02-04] MEDS: THIAMINE 100 MG TABLET PO SCH (09:16)
[2022-02-04] MEDS: RIFAXIMIN 550 MG TABLET PO SCH ×2 (09:16→20:06)
[2022-02-04] MEDS: CYANOCOBALAMIN 500 MCG TABLET PO SCH (09:16)
[2022-02-04] MEDS: FOLIC ACID 1 MG TABLET PO SCH ×2 (09:16→20:13)
[2022-02-04] MEDS: MORPHINE 2 MG/1 ML SYRINGE IV PRN ×3 (09:16→20:07)
[2022-02-04] MEDS: SERTRALINE 100 MG TABLET PO SCH ×2 (09:16→20:06)
[2022-02-04] MEDS: LACTULOSE 20 GM/30 ML UDCUP PO SCH ×4 (09:17→21:00)
[2022-02-04] MEDS: LEVOFLOXACIN INJ 750 MG/150 ML PREMIX IV SCH (09:28)
[2022-02-04] MEDS: KETOROLAC 15 MG/1 ML VIAL IV PRN (11:01)
[2022-02-04] MEDS: LACTATED RINGERS 1,000 ML IV SCH (15:54)
[2022-02-04] MEDS: SODIUM HYPOCHLORITE 0.25% IRRIG 473 ML BOTTLE TOP SCH (16:16)
[2022-02-04] MEDS: PREGABALIN 100 MG CAPSULE PO PRN (20:06)
[2022-02-05] MEDS: MORPHINE 2 MG/1 ML SYRINGE IV PRN ×3 (04:13→20:40)
[2022-02-05 05:11] LABS: Basophils % 0.6 % (0.0-0.8); Eosinophils # 0.1 10*3/uL (0.0-0.87); Hematocrit 23.1 VOL% (42.0-52.0); Immature Granulocytes % 0.2 %; Immature Granulocytes Absolute 0.01 #; Lymphocytes # 0.5 10*3/uL (1.4-4.0); Lymphocytes % 11.5 % (21.2-54.2); Mean Corpuscular HGB Conc 30.3 GM/DL (32-36); Mean Corpuscular Volume 89.2 FL (87-102); Mean Platelet Volume 9.5 FL (9.6-12.0); Monocytes # 0.5 10*3/uL (0.11-0.8); Monocytes % 10.4 % (1.7-12.7); Neutrophils % 74.3 % (38.7-73.9); Platelet Count 111 T/CUMM (130-400); Red Blood Count 2.59 MC/CUMM (3.8-5.5); Red Cell Distribution Width 19.9 % (9.3-17.3); White Blood Count 4.6 T/CUMM (4-12)
[2022-02-05 05:27] LABS: Alanine Aminotransferase 18 U/L (16-61); Albumin 1.6 G/DL (3.4-5.0); Alkaline Phosphatase 193 U/L (45-117); Aspartate Amino Transferase 34 U/L (0-37); Bilirubin,Total < 0.39 MG/DL (0.20-1.00); Blood Urea Nitrogen 7 MG/DL (7-18); Calcium 7.6 MG/DL (8.5-10.1); Carbon Dioxide 26 MMOL/L (21-32); Chloride 109 MMOL/L (98-107); Glucose 116 MG/DL (74-106); Osmolality,Calculated 277.4 MOS/KG (273-304); Potassium 3.9 MMOL/L (3.5-5.1); Sodium 140 MMOL/L (136-145); Total Protein 5.5 G/DL (6.4-8.2)
[2022-02-05] MEDS: RIFAXIMIN 550 MG TABLET PO SCH ×2 (09:26→20:35)
[2022-02-05] MEDS: PANTOPRAZOLE 40 MG TABLET PO SCH (09:26)
[2022-02-05] MEDS: THIAMINE 100 MG TABLET PO SCH (09:26)
[2022-02-05] MEDS: INSULIN REGULAR 100 UNIT/ML SUBCUT SCH ×4 (09:26→20:36)
[2022-02-05] MEDS: LEVOFLOXACIN INJ 750 MG/150 ML PREMIX IV SCH (09:26)
[2022-02-05] MEDS: LACTULOSE 20 GM/30 ML UDCUP PO SCH ×4 (09:27→21:27)
[2022-02-05] MEDS: SERTRALINE 100 MG TABLET PO SCH ×2 (09:27→20:35)
[2022-02-05] MEDS: MULTIVITAMIN (CENTRUM) TABLET PO SCH (09:27)
[2022-02-05] MEDS: FOLIC ACID 1 MG TABLET PO SCH ×2 (09:27→20:35)
[2022-02-05] MEDS: CYANOCOBALAMIN 500 MCG TABLET PO SCH (09:28)
[2022-02-05] MEDS: SODIUM HYPOCHLORITE 0.25% IRRIG 473 ML BOTTLE TOP SCH (09:28)
[2022-02-05] MEDS ORDERED: SODIUM CHLORIDE 0.9% 1,000 ML IV PRN (11:38)
[2022-02-05] MEDS: diphenhydrAMINE 50 MG/1 ML VIAL IV PRN (20:39)
[2022-02-06] MEDS: MORPHINE 2 MG/1 ML SYRINGE IV PRN ×2 (01:00→06:28)
[2022-02-06] MEDS: diphenhydrAMINE 50 MG/1 ML VIAL IV PRN ×2 (02:40→21:40)
[2022-02-06 06:10] LABS: Basophils # 0.1 10*3/uL (0.0-0.2); Eosinophils # 0.2 10*3/uL (0.0-0.87); Hematocrit 27.2 VOL% (42.0-52.0); Hemoglobin 8.5 GM/DL (14.0-18.0); Immature Granulocytes % 0.2 %; Immature Granulocytes Absolute 0.01 #; Lymphocytes # 0.6 10*3/uL (1.4-4.0); Lymphocytes % 12.6 % (21.2-54.2); Mean Corpuscular HGB Conc 31.3 GM/DL (32-36); Mean Corpuscular Volume 88.3 FL (87-102); Monocytes # 0.5 10*3/uL (0.11-0.8); Monocytes % 10.8 % (1.7-12.7); Neutrophils % 72.4 % (38.7-73.9); Platelet Count 116 T/CUMM (130-400); Red Blood Count 3.08 MC/CUMM (3.8-5.5); Red Cell Distribution Width 19.2 % (9.3-17.3); White Blood Count 4.9 T/CUMM (4-12)
[2022-02-06 06:49] LABS: Calcium 7.4 MG/DL (8.5-10.1); Osmolality,Calculated 282.1 MOS/KG (273-304); Potassium 3.9 MMOL/L (3.5-5.1)
[2022-02-06] MEDS: INSULIN REGULAR 100 UNIT/ML SUBCUT SCH ×4 (07:53→20:21)
[2022-02-06] MEDS: SODIUM HYPOCHLORITE 0.25% IRRIG 473 ML BOTTLE TOP SCH (09:10)
[2022-02-06] MEDS: PANTOPRAZOLE 40 MG TABLET PO SCH (09:10)
[2022-02-06] MEDS: FOLIC ACID 1 MG TABLET PO SCH ×2 (09:10→20:22)
[2022-02-06] MEDS: MULTIVITAMIN (CENTRUM) TABLET PO SCH (09:10)
[2022-02-06] MEDS: LEVOFLOXACIN INJ 750 MG/150 ML PREMIX IV SCH (09:10)
[2022-02-06] MEDS: LACTULOSE 20 GM/30 ML UDCUP PO SCH ×4 (09:10→20:22)
[2022-02-06] MEDS: SERTRALINE 100 MG TABLET PO SCH ×2 (09:11→20:22)
[2022-02-06] MEDS: CYANOCOBALAMIN 500 MCG TABLET PO SCH (09:11)
[2022-02-06] MEDS: THIAMINE 100 MG TABLET PO SCH (09:11)
[2022-02-06] MEDS: RIFAXIMIN 550 MG TABLET PO SCH ×2 (09:11→20:22)
[2022-02-06] MEDS: traMADol 50 MG TABLET PO PRN (17:12)
[2022-02-06] MEDS: ERGOCALCIFEROL 50,000 UNIT CAPSULE PO SCH (17:12)
[2022-02-06] MEDS: PREGABALIN 100 MG CAPSULE PO PRN (21:43)
[2022-02-06] MEDS ORDERED: MORPHINE 2 MG/1 ML SYRINGE IV PRN (23:25)
[2022-02-07 05:02] LABS: Basophils # 0.1 10*3/uL (0.0-0.2); Basophils % 0.7 % (0.0-0.8); Eosinophils # 0.2 10*3/uL (0.0-0.87); Eosinophils % 2.2 % (0.00-10.9); Hematocrit 29.1 VOL% (42.0-52.0); Immature Granulocytes % 0.3 %; Immature Granulocytes Absolute 0.02 #; Lymphocytes # 0.7 10*3/uL (1.4-4.0); Lymphocytes % 8.7 % (21.2-54.2); Mean Corpuscular HGB Conc 30.9 GM/DL (32-36); Mean Corpuscular Volume 88.7 FL (87-102); Mean Platelet Volume 9.2 FL (9.6-12.0); Monocytes # 0.5 10*3/uL (0.11-0.8); Monocytes % 6.7 % (1.7-12.7); Neutrophils % 81.4 % (38.7-73.9); Platelet Count 118 T/CUMM (130-400); Red Blood Count 3.28 MC/CUMM (3.8-5.5); Red Cell Distribution Width 19.3 % (9.3-17.3); White Blood Count 7.6 T/CUMM (4-12)
[2022-02-07 05:33] LABS: Calcium 8.7 MG/DL (8.5-10.1); Osmolality,Calculated 274.5 MOS/KG (273-304); Potassium 4.3 MMOL/L (3.5-5.1)
[2022-02-07] MEDS: traMADol 50 MG TABLET PO PRN (06:15)
[2022-02-07] MEDS: INSULIN REGULAR 100 UNIT/ML SUBCUT SCH ×2 (07:30→12:49)
[2022-02-07] MEDS ORDERED: HYDROmorphone 1 MG/1 ML SYRINGE SUBCUT ONE (10:06)
[2022-02-07] MEDS ORDERED: HYDROmorphone 1 MG/1 ML SYRINGE IV PRN (10:39)
[2022-02-07] MEDS: CYANOCOBALAMIN 500 MCG TABLET PO SCH (10:43)
[2022-02-07] MEDS: MULTIVITAMIN (CENTRUM) TABLET PO SCH (10:44)
[2022-02-07] MEDS: SERTRALINE 100 MG TABLET PO SCH (10:44)
[2022-02-07] MEDS: RIFAXIMIN 550 MG TABLET PO SCH (10:44)
[2022-02-07] MEDS: FOLIC ACID 1 MG TABLET PO SCH (10:44)
[2022-02-07] MEDS: PANTOPRAZOLE 40 MG TABLET PO SCH (10:44)
[2022-02-07] MEDS: THIAMINE 100 MG TABLET PO SCH (10:44)
[2022-02-07] MEDS: LEVOFLOXACIN INJ 750 MG/150 ML PREMIX IV SCH (10:45)
[2022-02-07] MEDS: SODIUM HYPOCHLORITE 0.25% IRRIG 473 ML BOTTLE TOP SCH (10:46)
[2022-02-07] MEDS: LACTULOSE 20 GM/30 ML UDCUP PO SCH ×2 (10:46→14:04)
[2022-02-07 12:33] VITALS: BP 120/66
== END 2022-02-07 14:40 | DRG 580 ==
LOC: SUATTDRO → N.ED 11:13 → N.5E 17:45 → SUATTDRO 17:48 → N.3E 17:48 → N.5E 17:49
PROVIDERS: ADMIT Emergency Medicine; ATTEND Internal Medicine